=== PATIENT | female | born 1970 | race Caucasian/White ===

== ENCOUNTER → 2017-03-31 | Outpatient (CLI) | payer OTHER ==
[2017-03-31 13:00] LABS: Basophils % (A) 0 %; CH 30.2; Eosinophils # (A) 0.2 k/uL (0-0.7); Eosinophils % (A) 4 %; HDW 2.86; HGB 14.1 gm/dL (11.4-16.0); Luc # (Auto) 0.13; Luc % (Auto) 2; Lymphocytes # (A) 1.3 k/uL (1.0-4.8); Lymphocytes % (A) 20 %; MCHC 33.6 g/dL (31.0-37.0); MCV 89.2 fL (80.0-100.0); Monocytes # (A) 0.5 k/uL (0-1.0); Monocytes % (A) 7 %; Neutrophils # (A) 4.2 k/uL (1.3-7.7); Neutrophils % (A) 67 %; RBC 4.71 m/uL (3.80-5.40); RDW 12.9 % (11.5-15.5); WBC 6.3 k/uL (3.8-10.6)
== END ==
LOC: LABWHC1 12:04
PROVIDERS: ATTEND Obstetrics & Gynecology
DX: Z01.812 Encounter for preprocedural laboratory examination (principal)
CPT/HCPCS: 36415; 85025

== ENCOUNTER → 2017-04-20 | Outpatient (CLI) | payer OTHER ==
--- NOTE | 2017-04-20 09:33 | MR ---
EXAMINATION TYPE: MR lumbar spine wo con DATE OF EXAM: 04/20/2017 COMPARISON: MRI lumbar spine April 10, 2015. HISTORY: lumbago per order. Low back pain for several years into bilateral buttocks per patient. TECHNIQUE: Multiplanar, multisequence imaging of the lumbar spine is performed without IV contrast. FINDINGS: Sagittal images of the lumbar spine show vertebral body heights and alignment to appear sat isfactory. The intervertebral discs demonstrate normal heights and hydration. No significant posterio r disc herniations are seen on sagittal images. The conus medullaris remains normal in position and signal ending at mid L1 level. The bone marrow signal intensity is within normal limits. No signific ant spurring is noted. Axial images show no focal disc disease, or facet degenerative change at any lumbar level. There is no spinal canal stenosis, neural foraminal narrowing, or evidence of nerve root compromise. IMPRESSION: Negative MRI of the lumbar spine. No significant change from prior study.
== END | disposition home or self-care (01) ==
LOC: RADMRIMAIN 08:18
PROVIDERS: ATTEND Nurse Practitioner Acute Care
DX: M54.5 Low back pain (principal)
CPT/HCPCS: 72148

== ENCOUNTER → 2017-05-01 | Outpatient (CLI) | payer OTHER ==
--- NOTE | 2017-05-04 08:20 | MM ---
Reason for exam: screening (asymptomatic). Last mammogram was performed 1 year ago. History: Patient is nulliparous. Physical Findings: A clinical breast exam by your physician is recommended on an annual basis and results should be correlated with mammographic findings. MG Screening Mammo w CAD Bilateral CC and MLO view(s) were taken. Prior study comparison: April 29, 2016, bilateral MG screening mammo w CAD. April 27, 2015, bilateral MG screening mammo w CAD. The breast tissue is heterogeneously dense. This may lower the sensitivity of mammography. Focal asymmetry in the right MLO view, 3.8cm from nipple. This finding is changed when compared with previous exams. ASSESSMENT: Incomplete: need additional imaging evaluation, BI-RAD 0 RECOMMENDATION: Special view mammogram of the right breast. If lesion persists on supplemental views, image directed ultrasound is recommended. [facility] will attempt to contact patient to return for supplemental views and ultrasound if indicated.
== END | disposition home or self-care (01) ==
LOC: RADMAMWWP 09:06
PROVIDERS: ATTEND Internal Medicine
DX: Z12.31 Encounter for screening mammogram for malignant neoplasm of breast (principal)

== ENCOUNTER → 2017-05-05 | Outpatient (CLI) | payer OTHER ==
--- NOTE | 2017-05-06 07:31 | MM ---
Reason for exam: additional evaluation requested from abnormal screening. Last mammogram was performed less than 1 month ago. History: Patient is nulliparous. Physical Findings: Nurse did not find any significant physical abnormalities on exam. MG Work Up Mamm w CAD RT CC, MLO, ML, spot compression CC, and spot compression MLO view(s) were taken of the right breast. Prior study comparison: May 01, 2017, bilateral MG screening mammo w CAD. April 29, 2016, bilateral MG screening mammo w CAD. April 27, 2015, bilateral MG screening mammo w CAD. November 11, 2011, bilateral digital screening mammo w/CAD. The breast tissue is heterogeneously dense. This may lower the sensitivity of mammography. No clear persisting abnormality on spot images. Precautionary 6 month follow up recommended. These results were verbally communicated with the patient and result sheet given to the patient on 05/05/17. ASSESSMENT: Probably benign, BI-RAD 3 RECOMMENDATION: Follow-up diagnostic mammogram of the right breast in 6 months.
== END | disposition home or self-care (01) ==
LOC: RADMAMWWP 14:29
PROVIDERS: ATTEND Internal Medicine
DX: R92.8 Other abnormal and inconclusive findings on diagnostic imaging of breast (principal)

== ENCOUNTER → 2017-05-26 | Outpatient (CLI) | payer OTHER ==
[2017-05-26 09:57] LABS: Basophils % (A) 0 %; CH 29.4; CHCM 33.9; Eosinophils # (A) 0.2 k/uL (0-0.7); Eosinophils % (A) 4 %; HCT 45.1 % (34.0-46.0); HDW 2.92; HGB 14.8 gm/dL (11.4-16.0); Luc # (Auto) 0.13; Luc % (Auto) 2; Lymphocytes # (A) 1.5 k/uL (1.0-4.8); Lymphocytes % (A) 24 %; MCH 28.6 pg (25.0-35.0); MCHC 32.8 g/dL (31.0-37.0); MCV 87.2 fL (80.0-100.0); Mean Platelet Volume 6.8; Monocytes # (A) 0.4 k/uL (0-1.0); Monocytes % (A) 7 %; Neutrophils # (A) 3.8 k/uL (1.3-7.7); Neutrophils % (A) 62 %; RBC 5.17 m/uL (3.80-5.40); RDW 12.8 % (11.5-15.5); WBC 6.1 k/uL (3.8-10.6); WBC (Perox) 6.09
== END | disposition home or self-care (01) ==
LOC: LABPAT 09:24
PROVIDERS: ATTEND Obstetrics & Gynecology
DX: Z01.812 Encounter for preprocedural laboratory examination (principal)
CPT/HCPCS: 36415; 85025

== ENCOUNTER → 2017-07-16 | Outpatient (CLI) | payer OTHER ==
[2017-07-16 10:54] LABS: Basophils % (A) 0 %; CH 29.1; CHCM 34.5; Eosinophils # (A) 0.2 k/uL (0-0.7); Eosinophils % (A) 4 %; HCT 42.3 % (34.0-46.0); HDW 2.96; HGB 14.7 gm/dL (11.4-16.0); Luc # (Auto) 0.15; Luc % (Auto) 2; Lymphocytes % (A) 15 %; MCH 29.5 pg (25.0-35.0); MCHC 34.8 g/dL (31.0-37.0); MCV 84.8 fL (80.0-100.0); Monocytes # (A) 0.4 k/uL (0-1.0); Monocytes % (A) 7 %; Neutrophils # (A) 4.9 k/uL (1.3-7.7); Neutrophils % (A) 73 %; RBC 4.99 m/uL (3.80-5.40); RDW 13.1 % (11.5-15.5); WBC 6.8 k/uL (3.8-10.6); WBC (Perox) 6.71
[2017-07-17 13:27] VITALS: BMI 33.0
== END | disposition home or self-care (01) ==
LOC: LABPAT 10:11
PROVIDERS: ATTEND Obstetrics & Gynecology
DX: Z01.812 Encounter for preprocedural laboratory examination (principal)
CPT/HCPCS: 85025

== ENCOUNTER 2017-07-20 06:38 | Day surgery (SDC) | payer OTHER ==
[2017-04-14 14:42] VITALS: BMI 32.0
[~2017-07-20 06:38] MED LIST: LACTATED RINGERS 1,000 ML IV SCH; Pre Op ABX Message 1 EACH MISC MISCELLANE ONE; fentaNYL (PF) 50 MCG/ML 2 ML AMP IV PRN
[2017-07-20] MEDS ORDERED: LIDOCAINE 1% 20 ML VIAL (10MG/ML) FOR IV START INTRADERMA ONE (07:36)
[2017-07-20] MEDS ORDERED: ONDANSETRON 4 MG/2 ML VIAL IVP ONE (07:37)
[2017-07-20] MEDS ORDERED: DEXAMETHASONE SOD PHOSPHATE 10 MG/ML 1 ML VIAL IV ONE (07:37)
[2017-07-20] MEDS ORDERED: SCOPOLAMINE 1.5MG/72HR PATCH TRANSDERM ONE (07:39)
[2017-07-20] MEDS ORDERED: KETOROLAC 30 MG/ML 1 ML VIAL ONE (07:48)
[2017-07-20] MEDS ORDERED: PROPOFOL 10 MG/ML 20 ML VIAL IV ONE (07:48)
[2017-07-20] MEDS ORDERED: fentaNYL (PF) 50 MCG/ML 2 ML AMP ONE (07:48)
--- NOTE | 2017-07-20 07:48 | P.HPOB ---
History of Present Illness H&P Date: 07/20/17 Chief Complaint: Cervical dysplasia Aleshia is a 47-year-old female scheduled for a colposcopy under anesthesia due to her inability to tolerate a colposcopy in the office and limited visualization during that procedure. We are doing a colposcopy with likely biopsies of her cervix due to same. Risks/benefits/alternatives were discussed patient in detail and all questions are answered for her prior to proceeding to the operating room. This procedure has been scheduled since March. She has rescheduled this multiple times. On physical exam vital signs are stable and afebrile. Heart regular, lungs clear, extremities without pain. Abdomen soft and nontender. Positive bowel sounds are noted. Pelvic exam will be done completely in the operating room. Assessment cervical dysplasia. Plan colposcopy with possible biopsies. Past Medical History Past Medical History: COPD, GERD/Reflux, Osteoarthritis (OA), Sleep Apnea/CPAP/ BIPAP Additional Past Medical History / Comment(s): Back pain. Heel Spurs. USES CPAP. INJ RT ARM/SHOULDER, GOING TO PT. History of Any Multi-Drug Resistant Organisms: None Reported Additional Past Surgical History / Comment(s): Pain Injection Procedures; Colonoscopy Past Anesthesia/Blood Transfusion Reactions: No Reported Reaction Smoking Status: Never smoker - Past Family History Mother Family Medical History: No Reported History Father Family Medical History: Pulmonary Embolus Medications and Allergies Home Medications Medication Instructions Recorded Confirmed Type Ibuprofen [Motrin] 800 mg PO Q6HR PRN 04/14/17 07/17/17 History Omeprazole 20 mg PO HS 04/14/17 07/17/17 History Albuterol Inhaler [Ventolin Hfa 1 - 2 puff INHALATION Q6HR PRN 07/17/17 History Inhaler] Ketorolac [Toradol] 10 mg PO Q6HR 07/17/17 07/20/17 History Allergies Allergy/AdvReac Type Severity Reaction Status Date / Time No Known Allergies Allergy Verified 07/20/17 07:20 Exam Osteopathic Statement: *. No significant issues noted on an osteopathic structural exam other than those noted in the History and Physical/Consult. - Vital Signs Vital signs: Vital Signs Temp Pulse Resp BP Pulse Ox 07/20/17 07:23 98.2 F 80 16 112/60 93 L Intake and Output 07/19/17 07/20/17 07/20/17 22:59 06:59 14:59 Intake Total 50 Balance 50 Intake: IV 50
--- NOTE | 2017-07-20 08:33 | P.OP ---
Date of Procedure: 07/20/17 Preoperative Diagnosis: Cervical dysplasia Postoperative Diagnosis: Same Procedure(s) Performed: Colposcopy with ECC Implants: Anesthesia: TOM Surgeon: Nakul Umanzor Pathology: other (ECC) Condition: stable Disposition: same day Indications for Procedure: Operative Findings: Await biopsy Description of Procedure: A she was taken to the operating suite where a general anesthetic was found be adequate. She was prepped and draped in normal sterile fashion placed in dorsal lithotomy position. Initially exam was done no gross findings are noted. Speculum was then inserted into the vagina into lip cervix was grasped with an Allis clamp and Lugol solution coated the external cervix. Colposcopy was then done no gross findings therefore colposcope was removed and endocervical curettings were obtained with a Maribeth curet. Tissue was placed on Telfa sent to pathology for evaluation. All instruments were then removed sponge, lap, needle counts were all correct 2 and patient was taken to the recovery room in stable and satisfactory condition. Plan - Discharge Summary New Discharge Prescriptions: No Action Ibuprofen [Motrin] 800 mg PO Q6HR PRN PRN Reason: Pain Omeprazole 20 mg PO HS Albuterol Inhaler [Ventolin Hfa Inhaler] 1 - 2 puff INHALATION Q6HR PRN PRN Reason: Shortness Of Breath Ketorolac [Toradol] 10 mg PO Q6HR Discharge Medication List Ibuprofen [Motrin] 800 mg PO Q6HR PRN 04/14/17 [History] Omeprazole 20 mg PO HS 04/14/17 [History] Albuterol Inhaler [Ventolin Hfa Inhaler] 1 - 2 puff INHALATION Q6HR PRN [History] Ketorolac [Toradol] 10 mg PO Q6HR 07/17/17 [History] Follow up Appointment(s)/Referral(s): Nakul Umanzor DO [Doctor of Osteopathic Medicine] - 1 Week Patient Instructions/Handouts: *[facility] - Scopalamine Patch Instructions
[2017-07-20 08:40] VITALS: TEMP 98.6
[2017-07-20 10:11] VITALS: RESP 16
[2017-07-20 10:20] VITALS: BP 110/72; PULSE 80
== END 2017-07-20 10:40 | disposition home or self-care (01) ==
LOC: OR 06:38
PROVIDERS: ATTEND Obstetrics & Gynecology
DX: R87.612 Low grade squamous intraepithelial lesion on cytologic smear of cervix (LGSIL) (principal); J44.9 Chronic obstructive pulmonary disease, unspecified; G47.33 Obstructive sleep apnea (adult) (pediatric); K21.9 Gastro-esophageal reflux disease without esophagitis; Z77.22 Contact with and (suspected) exposure to environmental tobacco smoke (acute) (chronic); Z79.1 Long term (current) use of non-steroidal anti-inflammatories (NSAID); Z79.899 Other long term (current) drug therapy; Z99.89 Dependence on other enabling machines and devices
CPT/HCPCS: 81025; 88305; 57454; J1100; J2405; J3010; J1885; J2704

== ENCOUNTER → 2017-11-30 | Outpatient (CLI) | payer OTHER ==
--- NOTE | 2017-11-30 11:56 | MM ---
Reason for exam: follow-up at short interval from prior study. Last mammogram was performed 7 months ago. History: Patient is nulliparous. Physical Findings: Nurse did not find any significant physical abnormalities on exam. MG Diagnostic Mammo RT w CAD CC and MLO view(s) were taken of the right breast. Prior study comparison: May 05, 2017, right breast MG work up mamm w CAD RT. May 01, 2017, bilateral MG screening mammo w CAD. Persistent nodular density right 12 o'clock 5cm from nipple. These results were verbally communicated with the patient and result sheet given to the patient on 11/30/17. ASSESSMENT: Incomplete: need additional imaging evaluation, BI-RAD 0 RECOMMENDATION: Ultrasound of the right breast.
--- NOTE | 2017-11-30 11:57 | USB ---
Reason for exam: additional evaluation requested from abnormal screening. History: Patient is nulliparous. US Breast Limited RT Right breast ultrasound demonstrates a 0.6 x 0.3 x 0.5cm oval, cystic lesion at 12 o'clock. These results were verbally communicated with the patient and result sheet given to the patient on 11/30/17. ASSESSMENT: Benign, BI-RAD 2 RECOMMENDATION: Return to routine screening mammogram schedule for both breasts. Back on schedule.
== END | disposition home or self-care (01) ==
LOC: RADMAMWWP 10:11
PROVIDERS: ATTEND Internal Medicine
DX: Z12.31 Encounter for screening mammogram for malignant neoplasm of breast (principal); R92.8 Other abnormal and inconclusive findings on diagnostic imaging of breast
CPT/HCPCS: 77065

== ENCOUNTER → 2017-11-30 | Outpatient (CLI) | payer OTHER ==
--- NOTE | 2017-12-01 11:39 | ECHOF ---
Referral Reason:I50.22 Congestive Heart Failure MEASUREMENTS -------- HEIGHT: 152.4 cm WEIGHT: 83.9 kg BP: RVIDd: 3.0 cm (< 3.3) IVSd: 1.0 cm (0.6 - 1.1) LVIDd: 3.7 cm (3.9 - 5.3) LVPWd: 0.7 cm (0.6 - 1.1) IVSs: 1.3 cm LVIDs: 2.6 cm LVPWs: 1.0 cm LA Diam: 2.9 cm (2.7 - 3.8) Ao Diam: 2.4 cm (2.0 - 3.7) AV Cusp: 1.8 cm (1.5 - 2.6) LA Diam: 3.1 cm (2.7 - 3.8) MV EXCURSION: 18.547 mm (> 18.000) MV EF SLOPE: 76 mm/s (70 - 150) EPSS: 0.4 cm MV E Inocente: 0.76 m/s MV DecT: 163 ms MV A Inocente: 0.58 m/s MV E/A Ratio: 1.31 RAP: 5.00 mmHg RVSP: 26.57 mmHg FINDINGS -------- Sinus rhythm. This was a technically adequate study. The left ventricular size is normal. There is mild concentric left ventricular hypertrophy. Overa ll left ventricular systolic function is normal with, an EF between 55 - 60 %. The right ventricle is normal in size. The right atrial size is normal. The aortic valve is trileaflet, and appears structurally normal. No aortic stenosis or regurgitation. Mild mitral regurgitation is present. Mild tricuspid regurgitation present. There is no evidence of pulmonary hypertension. The right v entricular systolic pressure, as measured by Doppler, is 26.57mmHg. There is no pulmonic regurgitation present. The aortic root size is normal. There is no pericardial effusion. CONCLUSIONS -------- 1. The left ventricular size is normal. 2. There is mild concentric left ventricular hypertrophy. 3. Overall left ventricular systolic function is normal with, an EF between 55 - 60 %. 4. The aortic valve is trileaflet, and appears structurally normal. No aortic stenosis or regurgitati on. 5. Mild mitral regurgitation is present. 6. Mild tricuspid regurgitation present. 7. There is no evidence of pulmonary hypertension. 8. The right ventricular systolic pressure, as measured by Doppler, is 26.57mmHg. 9. There is no pulmonic regurgitation present. 10. The aortic root size is normal. 11. There is no pericardial effusion. DIETETICS DIRECTOR: Rupal Miguel RDCS
== END | disposition home or self-care (01) ==
LOC: RADECHMAIN 11:28
PROVIDERS: ATTEND Internal Medicine Critical Care Medicine
DX: I08.3 Combined rheumatic disorders of mitral, aortic and tricuspid valves (principal)
CPT/HCPCS: 77065; 93306

== ENCOUNTER → 2017-12-21 | Outpatient (CLI) | payer OTHER ==
--- NOTE | 2017-12-22 06:55 | US ---
EXAMINATION TYPE: US pelvic complete DATE OF EXAM: 12/21/2017 COMPARISON: NONE CLINICAL HISTORY: Dysfunctional uterine bleeding N93.8. DUB, frequent menses sometimes lasting up to 4 weeks TECHNIQUE: Transabdominal (TA) Date of LMP: 12/11/17 EXAM MEASUREMENTS: Uterus: 8.7 x 3.1 x 4.8 cm Endometrial Stripe: 0.4 cm Right Ovary: 3.5 x 1.1 x 2.2 cm Left Ovary: 2.7 x 1.4 x 2.1 cm *Patient declining TV exam at this time 1. Uterus: Anteverted Heterogeneous in appearance, unable to rule out fibroid at fundus. Possible cystic area NATHALIE = 2.4 x 2.1 x 1.8cm 2. Endometrium: appears wnl 3. Right Ovary: appears wnl 4. Left Ovary: appears wnl 5. Bilateral Adnexa: wnl 6. Posterior cul-de-sac: wnl Exam is suboptimal as patient refused transvaginal evaluation. Endometrium is not suspiciously thicke mario. Heterogeneous anteverted uterus is present. Scattered small fibroids cannot be excluded particul carlos lower uterine segment being most suspicious IMPRESSION: Probable intrauterine fibroids, pelvic MRI can be performed to confirm if desired.
== END | disposition home or self-care (01) ==
LOC: RADUSWWP 14:09
PROVIDERS: ATTEND Obstetrics & Gynecology
DX: N93.8 Other specified abnormal uterine and vaginal bleeding (principal)
CPT/HCPCS: 36415; 76856; 83001; 83002; 84146; 84443

== ENCOUNTER → 2018-01-05 | Outpatient (CLI) | payer OTHER ==
[2018-01-05 13:06] LABS: ALT 59 U/L (9-52); AST 27 U/L (14-36); Albumin 3.9 g/dL (3.5-5.0); Alkaline Phosphatase 91 U/L (38-126); Anion Gap 9 mmol/L; Blood Urea Nitrogen 23 mg/dL (7-17); Calcium 9.1 mg/dL (8.4-10.2); Carbon Dioxide 30 mmol/L (22-30); Chloride 107 mmol/L (98-107); Glucose 117 mg/dL (74-99); Sodium 146 mmol/L (137-145); Total Bilirubin 0.4 mg/dL (0.2-1.3); Total Protein 6.7 g/dL (6.3-8.2)
== END | disposition home or self-care (01) ==
LOC: LABWHC1 12:00
PROVIDERS: ATTEND Internal Medicine Critical Care Medicine
DX: R60.0 Localized edema (principal)
CPT/HCPCS: 36415; 80053

== ENCOUNTER → 2018-02-17 | Outpatient (CLI) | payer OTHER ==
--- NOTE | 2018-02-17 09:52 | US ---
EXAMINATION TYPE: US liver DATE OF EXAM: 02/17/2018 COMPARISON: NONE CLINICAL HISTORY: R94.5 Elevated Liver Test. Water Retention EXAM MEASUREMENTS: Liver Length: 13.9 cm Gallbladder Wall: 0.1 cm CBD: 0.2 cm Right Kidney: 11.3 x 5.3 x 5.1 cm Pancreas: Mostly Obscured by bowel gas Liver: wnl, Partially obscured by bowel gas visualized portions appear unremarkable. Gallbladder: wnl Evidence for sonographic Rodriguez's sign: No CBD: wnl Right Kidney: wnl IMPRESSION: 1. Visualized portions of the right upper quadrant are unremarkable.
== END | disposition home or self-care (01) ==
LOC: RADUSWWP 07:41
PROVIDERS: ATTEND Internal Medicine
DX: R94.5 Abnormal results of liver function studies (principal)
CPT/HCPCS: 76705

== ENCOUNTER → 2018-08-19 | Outpatient (CLI) | payer OTHER ==
--- NOTE | 2018-08-19 12:15 | MM ---
Reason for exam: screening (asymptomatic). Last mammogram was performed 9 months ago. History: Patient is nulliparous. Physical Findings: A clinical breast exam by your physician is recommended on an annual basis and results should be correlated with mammographic findings. MG Screening Mammo w CAD Bilateral CC and MLO view(s) were taken. Prior study comparison: November 30, 2017, right breast MG diagnostic mammo RT w CAD. May 05, 2017, right breast MG work up mamm w CAD RT. April 27, 2015, bilateral MG screening mammo w CAD. The breast tissue is heterogeneously dense. This may lower the sensitivity of mammography. There is no discrete abnormality. ASSESSMENT: Negative, BI-RAD 1 RECOMMENDATION: Routine screening mammogram of both breasts in 1 year.
== END ==
LOC: RADMAMWWP 09:56
PROVIDERS: ATTEND Internal Medicine
DX: Z12.31 Encounter for screening mammogram for malignant neoplasm of breast (principal)
CPT/HCPCS: 77067

== ENCOUNTER → 2018-09-08 | Outpatient (CLI) | payer OTHER ==
[2018-09-08 10:43] LABS: HCT 42.9 % (34.0-46.0); MCH 28.9 pg (25.0-35.0); MCHC 32.6 g/dL (31.0-37.0); MCV 88.7 fL (80.0-100.0); Mean Platelet Volume 6.7; Platelet Count 225 k/uL (150-450); RBC 4.84 m/uL (3.80-5.40); RDW 13.7 % (11.5-15.5)
[2018-09-08 10:55] LABS: T4, Free (Free Thyroxine) 1.11 ng/dL (0.78-2.19)
--- NOTE | 2018-09-08 10:56 | US ---
EXAMINATION TYPE: US pelvis complete transvag DATE OF EXAM: 09/08/2018 COMPARISON: US CLINICAL HISTORY: Dys Uterine Bleeding N93.8. Patient stated may have 2 menstrual cycles per month; G 1P0 TECHNIQUE: Transvaginal (TV) and Transabdominal (TA) . Transabdominal sonographic images of the pel vis were acquired. Transvaginal sonographic images were medically necessary to better assess the fol lowing anatomy: endometrium and ovaries Date of LMP: 08/28/2018 EXAM MEASUREMENTS: Uterus: 7.9 x 4.8 x 3.0 cm Endometrial Stripe: right upper endometrium = 0.3 cm and left upper endometrium = 0.8cm in bicornuate appearing uterus Right Ovary: 1.3 x 1.6 x 1.5 cm Left Ovary: 2.3 x 1.5 x 1.9 cm 1. Uterus: Anteverted; multiple Nabothian Cysts in cervix with largest = 1.1 x 0.6 x 0.8cm; 2. Endometrium: bicornuate appearance to upper endometrium 3. Right Ovary: small follicle is seen 4. Left Ovary: small follicle seen = 0.8 x 1..0 x 0.8cm 5. Bilateral Adnexa: wnl 6. Posterior cul-de-sac: wnl IMPRESSION: 1. 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 2. Cervical nabothian cysts. 3. Small ovarian follicles.
[2018-09-08 16:56] LABS: Progesterone 0.2 ng/mL
== END | disposition home or self-care (01) ==
LOC: RADUSWWP 08:55
PROVIDERS: ATTEND Obstetrics & Gynecology
DX: N88.8 Other specified noninflammatory disorders of cervix uteri (principal); N93.8 Other specified abnormal uterine and vaginal bleeding
CPT/HCPCS: 76830; 76856; 80061; 82670; 82947; 83001; 83002; 84144; 84146; 84403; 84439; 84443; 84479; 85027

== ENCOUNTER 2018-10-04 05:36 | Day surgery (SDC) | payer OTHER ==
[2018-09-24 15:25] VITALS: BMI 37.0
--- NOTE | 2018-09-28 19:33 | P.HPOB ---
History of Present Illness H&P Date: 09/28/18 Chief Complaint: Abnormal Pap smear and dysfunctional bleeding Aleshia is a 48-year-old female with a an abnormal Pap smear requiring a colposcopy. She does not tolerate these well under office circumstances she is therefore scheduled for this in the operating room. She also unforeseen has been suffering from dysfunctional uterine bleeding that has included 2 menses in November including a 25 day cycle then another that last 5 days she's had this intermittently over the last year and we are doing a D&C with hysteroscopy to rule out other pathology. Risks/benefits/alternatives to this procedure were discussed with the patient in detail and all questions were answered for her prior to proceeding to the operating room. Past Medical History Past Medical History: COPD, GERD/Reflux, Osteoarthritis (OA), Sleep Apnea/CPAP/ BIPAP Additional Past Medical History / Comment(s): Back pain. Heel Spurs. USES CPAP. Bunions History of Any Multi-Drug Resistant Organisms: None Reported Additional Past Surgical History / Comment(s): Pain Injection Procedures; Colonoscopy Past Anesthesia/Blood Transfusion Reactions: No Reported Reaction Smoking Status: Never smoker - Past Family History Mother Family Medical History: No Reported History Father Family Medical History: Pulmonary Embolus Medications and Allergies Home Medications Medication Instructions Recorded Confirmed Type Ibuprofen [Motrin] 800 mg PO Q6HR PRN 04/14/17 09/24/18 History Omeprazole 20 mg PO AC-BID 04/14/17 09/24/18 History Albuterol Inhaler [Ventolin Hfa 1 - 2 puff INHALATION Q6HR PRN 07/17/17 History Inhaler] Cholecalciferol [Vitamin D3] 2,000 unit PO DAILY 09/24/18 09/24/18 History Fluorometholone 0.1% Ophth Lakshmi 1 drops LEFT EYE Q4H PRN 09/24/18 09/24/18 History [Fml] Furosemide [Lasix] 40 mg PO DAILY 09/24/18 09/24/18 History Ketotifen 0.025% Ophth Soln 1 drop BOTH EYES BID PRN 09/24/18 09/24/18 History [Zaditor] Pregabalin [Lyrica] 75 mg PO BID 09/24/18 09/24/18 History busPIRone HCL 15 mg PO DAILY 09/24/18 09/24/18 History Allergies Allergy/AdvReac Type Severity Reaction Status Date / Time No Known Allergies Allergy Verified 09/24/18 15:17 Exam Osteopathic Statement: *. No significant issues noted on an osteopathic structural exam other than those noted in the History and Physical/Consult. - OBG Physical Exam Breast: both: normal (no masses) Abdomen: bowel sounds normal, no diffuse tenderness, no bruit present, no guarding noted, no hepatomegaly, no splenomegaly, no mass Vulva: both: normal Vagina: normal moisture, no discharge Cervix: no lesion, no discharge Uterus: normal size, normal contour Adnexa: both: normal Anus/Rectum: normal perianal skin, no rectal mass, no hemorrhoids, heme negative
[~2018-10-04 05:36] MED LIST changes: -LACTATED RINGERS 1,000 ML IV SCH; -fentaNYL (PF) 50 MCG/ML 2 ML AMP IV PRN
[2018-10-04] MEDS ORDERED: SCOPOLAMINE 1.5MG/72HR PATCH TRANSDERM ONE (05:54)
[2018-10-04] MEDS ORDERED: HYDROmorphone 0.5 MG/0.5 ML SYRINGE IVP PRN (05:54)
[2018-10-04] MEDS ORDERED: DEXAMETHASONE SOD PHOSPHATE 10 MG/ML 1 ML VIAL IV ONE (05:54)
[2018-10-04] MEDS ORDERED: LACTATED RINGERS 1,000 ML IV SCH (05:54)
[2018-10-04] MEDS ORDERED: ONDANSETRON 4 MG/2 ML VIAL IVP ONE (05:54)
[2018-10-04] MEDS ORDERED: LIDOCAINE 1% 20 ML VIAL (10MG/ML) FOR IV START INTRADERMA PRN (05:54)
[2018-10-04] MEDS ORDERED: KETOROLAC 30 MG/ML 1 ML VIAL ONE (07:42)
[2018-10-04] MEDS ORDERED: DEXAMETHASONE SOD PHOS (MDV) 100 MG/10 ML VIAL ONE (07:42)
[2018-10-04] MEDS ORDERED: MIDAZOLAM 2 MG/2 ML VIAL ONE (07:42)
[2018-10-04] MEDS ORDERED: PROPOFOL 10 MG/ML 20 ML VIAL IV ONE (07:42)
[2018-10-04] MEDS ORDERED: SUCCINYLCHOLINE CHLORIDE VIAL 200 MG/10 ML VIAL IV ONE (07:42)
[2018-10-04] MEDS ORDERED: ALBUTEROL INHALER 60 PUFF/8 GM INHALER INHALATION ONE (07:42)
[2018-10-04] MEDS ORDERED: IODINE/POTASS IOD (LUGOLS) BTL TOPICAL ONE (08:07)
--- NOTE | 2018-10-04 08:33 | P.HPOB ---
History of Present Illness H&P Date: 10/04/18 Chief Complaint: Dysfunctional bleeding and cervical dysplasia Patient was taken to the operating suite where a general anesthetic was found be adequate. She was prepped and draped in the normal sterile fashion and placed in the dorsal lithotomy position. Initially a speculum was inserted into the vagina and the anterior lip of the cervix was identified and grasped with an Allis clamp. Cervix is noted to be very posterior with no descent. Lugol solution was then coated on the cervix and colposcopy was done. No out side pathology was noted therefore cervix was minimally dilated and using a Kevorkian curette endocervical curettings were obtained. Once this was accomplished cervix was dilated was unable to advance the camera therefore a curettage was obtained and tissue was again clots on Telfa and sent to pathology once this was accomplished all instruments removed, sponge, lap, needle counts were all correct 2. Patient was then taken to the recovery room in stable and satisfactory condition. Past Medical History Past Medical History: COPD, GERD/Reflux, Osteoarthritis (OA), Sleep Apnea/CPAP/ BIPAP Additional Past Medical History / Comment(s): Back pain. Heel Spurs. USES CPAP. Bunions History of Any Multi-Drug Resistant Organisms: None Reported Additional Past Surgical History / Comment(s): Pain Injection Procedures; Colonoscopy Past Anesthesia/Blood Transfusion Reactions: No Reported Reaction Smoking Status: Never smoker - Past Family History Mother Family Medical History: No Reported History Father Family Medical History: Pulmonary Embolus Medications and Allergies Home Medications Medication Instructions Recorded Confirmed Type Ibuprofen [Motrin] 800 mg PO Q6HR PRN 04/14/17 10/04/18 History Omeprazole 20 mg PO AC-BID 04/14/17 10/04/18 History Albuterol Inhaler [Ventolin Hfa 1 - 2 puff INHALATION Q6HR PRN 07/17/17 History Inhaler] Cholecalciferol [Vitamin D3] 2,000 unit PO DAILY 09/24/18 10/04/18 History Fluorometholone 0.1% Ophth Lakshmi 1 drops LEFT EYE Q4H PRN 09/24/18 10/04/18 History [Fml] Furosemide [Lasix] 40 mg PO DAILY 09/24/18 10/04/18 History Ketotifen 0.025% Ophth Soln 1 drop BOTH EYES BID PRN 09/24/18 10/04/18 History [Zaditor] Pregabalin [Lyrica] 75 mg PO BID 09/24/18 10/04/18 History busPIRone HCL 15 mg PO DAILY 09/24/18 10/04/18 History Ibuprofen [Motrin] 600 mg PO Q6HR PRN #30 tab 10/04/18 Rx Allergies Allergy/AdvReac Type Severity Reaction Status Date / Time No Known Allergies Allergy Verified 10/04/18 06:13 Exam Osteopathic Statement: *. No significant issues noted on an osteopathic structural exam other than those noted in the History and Physical/Consult. Vital Signs Temp Pulse Resp BP Pulse Ox 10/04/18 06:19 97.4 F L 87 16 129/73 95 Intake and Output 10/03/18 10/04/18 10/04/18 22:59 06:59 14:59 Intake Total 200 0 Output Total 5 Balance 200 -5 Intake: IV 200 0 Output: Estimated Blood Loss 5
[2018-10-04] MEDS ORDERED: SODIUM CHLORIDE 0.9% 1,000 ML IV ONE (08:45)
[2018-10-04 08:49] VITALS: TEMP 98.5
[2018-10-04 09:47] VITALS: RESP 18
[2018-10-04 10:25] VITALS: BP 127/70; PULSE 96
--- NOTE | 2018-10-08 08:54 | P.OP ---
Date of Procedure: 10/04/18 Preoperative Diagnosis: Cervical dysplasia and dysfunctional uterine bleeding Postoperative Diagnosis: Same Procedure(s) Performed: Colposcopy with D&C and hysteroscopy Anesthesia: TOM Surgeon: Nakul Umanzor Estimated Blood Loss (ml): 5 Pathology: none sent (Endocervical and uterine curettings) Condition: stable Disposition: same day Operative Findings: Tissue pathology pending Description of Procedure: Patient was taken to the operating suite where a general anesthetic was found be adequate. She was prepped and draped in the normal sterile fashion and placed in dorsal lithotomy position. Initially a speculum was inserted into the vagina and the anterior lip of the cervix was identified and grasped with a single-tooth tenaculum. Cervix was then minimally dilated and coated with Lugol solution. With no changes noted on the external cervix endocervical curettings were obtained with Kevorkian curette. Once this was accomplished camera was inserted no gross pathology was noted therefore sharp curettings of endometrium were obtained and tissue was placed on Telfa and sent to pathology for evaluation. All instruments were then removed sponge, lap, needle counts were all correct 2. Patient was then taken to the recovery room in stable and satisfactory condition. Plan - Discharge Summary New Discharge Prescriptions: New Ibuprofen [Motrin] 600 mg PO Q6HR PRN #30 tab PRN Reason: Pain No Action Ibuprofen [Motrin] 800 mg PO Q6HR PRN PRN Reason: Pain Omeprazole 20 mg PO AC-BID Albuterol Inhaler [Ventolin Hfa Inhaler] 1 - 2 puff INHALATION Q6HR PRN PRN Reason: Shortness Of Breath Ketotifen 0.025% Ophth Soln [Zaditor] 1 drop BOTH EYES BID PRN PRN Reason: Dry Eye(S) Fluorometholone 0.1% Ophth Lakshmi [Fml] 1 drops LEFT EYE Q4H PRN PRN Reason: Dry Eye(S) busPIRone HCL 15 mg PO DAILY Pregabalin [Lyrica] 75 mg PO BID Furosemide [Lasix] 40 mg PO DAILY Cholecalciferol [Vitamin D3] 2,000 unit PO DAILY Discharge Medication List Ibuprofen [Motrin] 800 mg PO Q6HR PRN 04/14/17 [History] Omeprazole 20 mg PO AC-BID 04/14/17 [History] Albuterol Inhaler [Ventolin Hfa Inhaler] 1 - 2 puff INHALATION Q6HR PRN [History] Cholecalciferol [Vitamin D3] 2,000 unit PO DAILY 09/24/18 [History] Fluorometholone 0.1% Ophth Lakshmi [Fml] 1 drops LEFT EYE Q4H PRN 09/24/18 [History] Furosemide [Lasix] 40 mg PO DAILY 09/24/18 [History] Ketotifen 0.025% Ophth Soln [Zaditor] 1 drop BOTH EYES BID PRN 09/24/18 [History ] Pregabalin [Lyrica] 75 mg PO BID 09/24/18 [History] busPIRone HCL 15 mg PO DAILY 09/24/18 [History] Ibuprofen [Motrin] 600 mg PO Q6HR PRN #30 tab 10/04/18 [Rx] Follow up Appointment(s)/Referral(s): Nakul Umanzor DO [Doctor of Osteopathic Medicine] - 1 Week Patient Instructions/Handouts: *[facility] - Dilation & Curettage Home Instructions, *[facility] - (Anesthesia) Discharge Instructions Outpatient Surgery, *[facility] - Scopalamine Patch Instructions Activity/Diet/Wound Care/Special Instructions: No heavy lifting, limit stairs and driving, and pelvic rest. If any high temperatures, heavy bleeding, or severe pain call my office Discharge Disposition: HOME SELF-CARE
== END 2018-10-04 11:08 | disposition home or self-care (01) ==
LOC: OR 05:36
PROVIDERS: ATTEND Obstetrics & Gynecology
DX: N87.9 Dysplasia of cervix uteri, unspecified (principal); N93.8 Other specified abnormal uterine and vaginal bleeding; J44.9 Chronic obstructive pulmonary disease, unspecified; K21.9 Gastro-esophageal reflux disease without esophagitis; M19.90 Unspecified osteoarthritis, unspecified site; M77.30 Calcaneal spur, unspecified foot; M21.619 Bunion of unspecified foot; G47.33 Obstructive sleep apnea (adult) (pediatric); I87.2 Venous insufficiency (chronic) (peripheral); E66.01 Morbid (severe) obesity due to excess calories; Z68.37 Body mass index [BMI] 37.0-37.9, adult; Z99.89 Dependence on other enabling machines and devices; Z79.899 Other long term (current) drug therapy
CPT/HCPCS: 81025; 88305; 57454; 58558; J2250; J0330; J1100 ×2; J2405; J1885; J2704

== ENCOUNTER 2019-09-23 10:36 | Day surgery (SDC) | payer OTHER ==
[2019-09-22 09:00] VITALS: BMI 38.7
[~2019-09-23 10:36] MED LIST changes: +DEXAMETHASONE SOD PHOSPHATE 10 MG/ML 1 ML VIAL IV ONE; +HYDROmorphone 0.5 MG/0.5 ML SYRINGE IVP PRN; +LACTATED RINGERS 1,000 ML IV SCH; +LIDOCAINE 1% 20 ML VIAL (10MG/ML) FOR IV START INTRADERMA PRN; +MIDAZOLAM 2 MG/2 ML VIAL IV PRN; +ONDANSETRON 4 MG/2 ML VIAL IVP ONE; -Pre Op ABX Message 1 EACH MISC MISCELLANE ONE; +SCOPOLAMINE 1.5MG/72HR PATCH TRANSDERM ONE
[2019-09-23 11:44] VITALS: RESP 16; TEMP 97.6
[2019-09-23] MEDS ORDERED: MIDAZOLAM 2 MG/2 ML VIAL IV ONE (12:05)
[2019-09-23] MEDS ORDERED: GLYCOPYRROLATE 0.2 MG/ML 2 ML VIAL ONE (12:28)
[2019-09-23] MEDS ORDERED: fentaNYL (PF) 50 MCG/ML 2 ML AMP ONE (12:28)
[2019-09-23] MEDS ORDERED: KETAMINE 10 MG/ML 20 ML VIAL ONE (12:28)
--- NOTE | 2019-09-23 12:39 | P.ANPRN ---
Procedure Note - Anesthesia - Nerve Block Performed Right Axillary Single Time Out Performed: Yes (1205) Date of Procedure: 09/23/19 Procedure Start Time: 12:05 Procedure Stop Time: 12:12 Location of Patient Procedure: PreOp Indication: Acute Post-Operative Pain, Dx/Pain Location, Requested by Surgeon Sedation Type: Sedate with meaningful contact maintained Position: Supine Needle Types: Pajunk Needle Gauge: 21 Ultrasound used to visualize needle placement: Yes Ultrasound used to observe medication spread: Yes Injectate: Other (see comment) (10ml 0.5% Ropivacaine + 10ml 2% lidocaine with 1:200,000 epi) Pain Paresthesia on Injection Noted: Yes Resistance on Injection: Normal Image Stored and Saved: Yes Events: Uneventful and Well Tolerated
[2019-09-23] MEDS ORDERED: LIDOCAINE 1%-EPI 1:100,000 20 ML VIAL ONE (12:53)
[2019-09-23] MEDS ORDERED: LIDOCAINE 1%-EPI 1:100,000 30 ML VIAL SQ ONE (12:53)
[2019-09-23] MEDS ORDERED: BUPIVACAINE (PF) 0.5% 30 ML VIAL SQ ONE ×2 (12:53)
[2019-09-23 13:51] VITALS: PULSE 90
[2019-09-23 14:16] VITALS: BP 128/67
--- NOTE | 2019-09-24 15:35 | P.OP ---
Date of Procedure: 09/23/19 Preoperative Diagnosis: Right carpal tunnel syndrome Postoperative Diagnosis: Right carpal tunnel syndrome Procedure(s) Performed: Right endoscopic carpal tunnel release Anesthesia: MAC, regional, local Surgeon: Keith German Estimated Blood Loss (ml): 1 Condition: stable Disposition: same day Indications for Procedure: The patient is a pleasant 49-year-old female who was diagnosed with bilateral carpal tunnel syndrome. Treatment options (and associated risks and benefits) were discussed in the office. The patient elected to proceed with surgical release, beginning with the right side. In preop, the patient denied any additional questions or concerns. Consent forms were signed. The operative site was confirmed and marked. Description of Procedure: The patient was administered a regional nerve block by the anesthesia team and then was brought to the operating suite, positioned supine with the right arm on a hand table. A tourniquet was applied. Monitored anesthesia was administered uneventfully. A time-out was performed, confirming patient identifiers, the operative side, site and the procedure to be performed: all team members expressed agreement. Using aseptic technique, local anesthetic was injected into the subcutaneous tissues around the planned incision. The right upper extremity was then prepped and draped in standard, sterile fashion. The limb was exsanguinated with an Esmarch and the tourniquet was inflated. Loupe magnification was used throughout the case for optimum visualization. A 1.5 cm transverse incision was marked just proximal to the wrist flexion crease, in line with the radial border of the ring finger. The skin was sharply incised and the subcutaneous tissues were bluntly spread. The volar carpal fascia was identified and sharply incised. The median nerve was visualized below. Prominent, injected perineural vasculature was noted, consistent with chronic compression. The introitus to the carpal tunnel was remarkably tight. To facilitate atraumatic entry, the volar carpal fascia proximal and distal to the incision was released with scissors under direct visualization. Attempts to insert a smooth synovial elevator were met with resistance and traction against the nerve. A Maspeth elevator was used to gently release adhesions over the nerve. The synovial elevator was again inserted and passed smoothly into the carpal tunnel without traction or tension on the nerve. This was used to gently release adhesions on the underside of the transverse carpal ligament. The washboard effect was palpable. A dilator was inserted to sound and enlarge the carpal tunnel. The hamate hook was palpable ulnarly. The small side-specific guide and camera were inserted. The transverse carpal ligament was clearly visualized above. The distal edge of the ligament was identified and palpated with a probe. A rasp was used to clear the remaining synovial adhesions. The endoscopic blade was inserted and the distal half of the ligament was sharply incised. Residual distal transverse fibers were released and then the proximal portion of the ligament was divided. Wide release of ligament was visually confirmed. The camera was removed. At the level of the incision, the median nerve was encased in a layer of thickened perineural tissue, causing persistent compression. A limited, local neurolysis was performed, which improved both the appearance and mobility of the nerve. The tourniquet was released after 16 minutes at 250 mmHg. Good hemostasis was obtained with held pressure. The wound was thoroughly irrigated with normal saline. The incision was closed with interrupted 4-0 Nylon sutures. Additional local anesthetic with epinephrine was injected for adjunctive postoperative pain control and hemostasis. A soft, sterile dressing was applied. All sponge, needle and instrument counts were correct at the end of the case. The patient tolerated the procedure well and was transferred to recovery in stable condition.
== END 2019-09-23 16:51 | disposition home or self-care (01) ==
LOC: OR 10:36
PROVIDERS: ATTEND Orthopaedic Surgery
DX: G56.03 Carpal tunnel syndrome, bilateral upper limbs (principal); M19.042 Primary osteoarthritis, left hand; M19.041 Primary osteoarthritis, right hand; F41.9 Anxiety disorder, unspecified; K21.9 Gastro-esophageal reflux disease without esophagitis; F32.9 Major depressive disorder, single episode, unspecified; J44.9 Chronic obstructive pulmonary disease, unspecified; G47.33 Obstructive sleep apnea (adult) (pediatric); K08.409 Partial loss of teeth, unspecified cause, unspecified class; K08.89 Other specified disorders of teeth and supporting structures; Z79.899 Other long term (current) drug therapy; Z79.1 Long term (current) use of non-steroidal anti-inflammatories (NSAID); Z87.2 Personal history of diseases of the skin and subcutaneous tissue; Z98.49 Cataract extraction status, unspecified eye; Z97.3 Presence of spectacles and contact lenses; Z99.89 Dependence on other enabling machines and devices; Z98.890 Other specified postprocedural states; Z83.3 Family history of diabetes mellitus; Z82.49 Family history of ischemic heart disease and other diseases of the circulatory system; Z83.2 Family history of diseases of the blood and blood-forming organs and certain disorders involving the immune mechanism
CPT/HCPCS: 29848; 64417; 81025; 76942; J2250; J1100; J0690; J2405; J3010

== ENCOUNTER → 2019-11-11 | Outpatient (CLI) | payer OTHER ==
[2019-11-11 08:01] LABS: HCT 42.2 % (34.0-46.0); HGB 13.9 gm/dL (11.4-16.0); MCH 27.9 pg (25.0-35.0); MCV 84.4 fL (80.0-100.0); Mean Platelet Volume 7.5; Platelet Count 183 k/uL (150-450); RDW 13.7 % (11.5-15.5); WBC 6.7 k/uL (3.8-10.6)
[2019-11-11 08:08] LABS: Potassium 3.6 mmol/L (3.5-5.1)
== END | disposition home or self-care (01) ==
LOC: LABPAT 06:53
PROVIDERS: ATTEND Internal Medicine Interventional Cardiology
DX: Z01.812 Encounter for preprocedural laboratory examination (principal); R60.0 Localized edema
CPT/HCPCS: 36415; 80051; 82565; 84520; 85027

== ENCOUNTER → 2019-11-11 | Outpatient (CLI) | payer OTHER ==
--- NOTE | 2019-11-14 12:20 | MM ---
Reason for exam: screening (asymptomatic). Last mammogram was performed 1 year and 3 months ago. History: Patient is nulliparous. Physical Findings: A clinical breast exam by your physician is recommended on an annual basis and results should be correlated with mammographic findings. MG Screening Mammo w CAD Bilateral CC and MLO view(s) were taken. Prior study comparison: August 19, 2018, bilateral MG screening mammo w CAD. November 30, 2017, right breast MG diagnostic mammo RT w CAD. The breast tissue is heterogeneously dense. This may lower the sensitivity of mammography. No suspicious abnormality. No significant changes when compared with prior studies. ASSESSMENT: Negative, BI-RAD 1 RECOMMENDATION: Routine screening mammogram of both breasts in 1 year.
== END ==
LOC: RADMAMWWP 06:51
PROVIDERS: ATTEND Internal Medicine
DX: Z12.31 Encounter for screening mammogram for malignant neoplasm of breast (principal)
CPT/HCPCS: 77067

== ENCOUNTER → 2019-11-21 | Day surgery (SDC) | payer OTHER ==
[2019-11-16 11:30] VITALS: BMI 38.5
[~2019-11-21] MED LIST changes: +ALPRAZolam 0.25 MG TAB PO PRN; +ASPIRIN 325 MG TAB PO STA; -DEXAMETHASONE SOD PHOSPHATE 10 MG/ML 1 ML VIAL IV ONE; -HYDROmorphone 0.5 MG/0.5 ML SYRINGE IVP PRN; +HYDROmorphone 1 MG/ML 1 ML SYRINGE IVP ONE; -LACTATED RINGERS 1,000 ML IV SCH; -LIDOCAINE 1% 20 ML VIAL (10MG/ML) FOR IV START INTRADERMA PRN; +LIDOCAINE 1% INJ 10MG/ML (20 ML MDV) SQ ONE; +MIDAZOLAM 2 MG/2 ML VIAL IV ONE; -MIDAZOLAM 2 MG/2 ML VIAL IV PRN; -ONDANSETRON 4 MG/2 ML VIAL IVP ONE; +ONDANSETRON 4 MG/2 ML VIAL IVP STA; +ONDANSETRON 4 MG/2 ML VIAL ONE; -SCOPOLAMINE 1.5MG/72HR PATCH TRANSDERM ONE; +SODIUM CHLORIDE 0.9% 1,000 ML IV SCH; +SODIUM CHLORIDE 0.9% 1,000 ML in EMPTY BAG 1 BAG IV ONE
[2019-11-21 07:07] VITALS: RESP 18; TEMP 97.7
--- NOTE | 2019-11-21 12:23 | AN ---
ANGIOGRAPHY REPORT DATE OF SERVICE: 11/11/2019 PERFORMING PHYSICIAN: Maulik Antoine MD. PROCEDURE PERFORMED: 1. Intravascular ultrasound (IVUS) of the inferior vena cava. 2. Intravascular ultrasound (IVUS) of bilateral common iliac veins. 3. Intravascular ultrasound (IVUS) of bilateral external iliac veins. 4. Intravascular ultrasound (IVUS) of bilateral common femoral vein. INDICATION: This is a 49-year-old female patient who continues to struggle with bilateral lower extremities edema. Congestive heart failure was ruled out. Chronic deep venous thrombosis was ruled out. She is on diuretics and in spite of that, she continues to have bilateral lower extremities edema. Because of that, she was brought today to undergo intravascular ultrasound of bilateral iliacs and femoral veins. APPROACH: Right common femoral vein and left common femoral vein. COMPLICATION: None. LEVEL OF SEDATION: Moderate with sedation length of 45 minutes. PROCEDURE DESCRIPTION: After obtaining an informed consent, the patient was brought to the cardiac dental laboratory worker. The patient was prepped and draped in the usual sterile fashion. Local analgesia was ere achieved by injecting 2% lidocaine subcutaneously into both groins. At that point, I did cannulate both common femoral vein using micropuncture technique under ultrasound guidance, then I placed an 8-British sheath in the right as well as left common femoral vein. After that, I initially advanced a 0.35 wire into the inferior vena cava and then I did advance the IVUS catheter from the left groin and pulled manual pullback. I did the same thing from the right groin as well. The procedure was completed without any complication. FINDINGS: The inferior vena cava was measured 150 mm2. Findings on the right side. 1. Common iliac vein: The reference area was 198 mm2 and the actual area was 52 mm2 with an area of stenosis of 74%. 2. External iliac vein: The reference area was 150 mm2 and the actual area was 73 mm2 with an area of stenosis of 51%. 3. Common femoral vein: The reference area was 125 mm2 with a compressed area of 58 mm2 and area of stenosis of 54%. 4. On the left side, #1 Common iliac vein: the reference area was 200 mm2 with an actual area of 86 mm2 and area of stenosis of 57%. 5. External iliac vein, the reference area was 151 mm2 with compressed area of 74 mm2 and area of stenosis 50%. 6. Common femoral vein: the reference area was 125 mm2 with compressed area of 30 mm2 and area of stenosis 76%. 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 POSTPROCEDURE MANAGEMENT: The patient needs to undergo stenting of both common iliac veins, external iliac veins and common femoral veins from a popliteal approach. MMODL / IJN: [id number] /
[2019-11-21 13:15] VITALS: BP 103/60; PULSE 88
== END ==
LOC: CATHCVL 06:17
PROVIDERS: ATTEND Internal Medicine Interventional Cardiology
DX: I87.1 Compression of vein (principal); I11.9 Hypertensive heart disease without heart failure; G47.30 Sleep apnea, unspecified; Z79.899 Other long term (current) drug therapy; Z82.49 Family history of ischemic heart disease and other diseases of the circulatory system
CPT/HCPCS: 76937; 37252; 37253; 36012; 81025; C1769 ×3; C1894; C1753; J2250; J2405; J2001; J1170

== ENCOUNTER → 2019-12-13 | Outpatient (CLI) | payer OTHER ==
[2019-12-13 11:12] LABS: HCT 41.8 % (34.0-46.0); HGB 13.6 gm/dL (11.4-16.0); MCH 27.8 pg (25.0-35.0); MCHC 32.5 g/dL (31.0-37.0); MCV 85.5 fL (80.0-100.0); Mean Platelet Volume 7.4; Platelet Count 239 k/uL (150-450); RBC 4.89 m/uL (3.80-5.40); RDW 13.6 % (11.5-15.5); WBC 5.6 k/uL (3.8-10.6)
== END | disposition home or self-care (01) ==
LOC: LABPAT 10:07
PROVIDERS: ATTEND Internal Medicine Interventional Cardiology
DX: Z01.812 Encounter for preprocedural laboratory examination (principal); R60.0 Localized edema
CPT/HCPCS: 36415; 82565; 84520; 85027

== ENCOUNTER 2019-12-19 06:23 | Day surgery (SDC) | payer OTHER ==
[2019-12-15 12:12] VITALS: BMI 38.7
[2019-12-19] MEDS ORDERED: ALPRAZolam 0.25 MG TAB PO PRN (06:30)
[2019-12-19] MEDS ORDERED: SODIUM CHLORIDE 0.9% 1,000 ML in EMPTY BAG 1 BAG IV ONE (06:30)
[2019-12-19] MEDS ORDERED: ASPIRIN 325 MG TAB PO ONE (07:00)
[2019-12-19 07:23] LABS: African American GFR (CKD) >90 (>60 ml/min/1.73 sqM); Anion Gap 7 mmol/L; Blood Urea Nitrogen 22 mg/dL (7-17); Calcium 8.6 mg/dL (8.4-10.2); Carbon Dioxide 24 mmol/L (22-30); Chloride 105 mmol/L (98-107); Glucose 96 mg/dL (74-99); Non-African American GFR(CKD) 86 (>60 ml/min/1.73 sqM); Sodium 136 mmol/L (137-145)
[2019-12-19 07:42] LABS: Potassium 3.7 mmol/L (3.5-5.1)
[2019-12-19] MEDS: MIDAZOLAM 2 MG/2 ML VIAL IV ONE ×2 (07:54→08:18)
[2019-12-19] MEDS ORDERED: LIDOCAINE 1% INJ 10MG/ML (20 ML MDV) SQ ONE ×3 (07:57→08:11)
[2019-12-19] MEDS ORDERED: HYDROmorphone 1 MG/ML 1 ML SYRINGE IVP ONE (08:10)
[2019-12-19] MEDS ORDERED: CLOPIDOGREL 75 MG TAB PO ONE (08:54)
[2019-12-19] MEDS ORDERED: ONDANSETRON 4 MG/2 ML VIAL IVP ONE (09:06)
[2019-12-19] MEDS ORDERED: IOPAMIDOL-300 100ML BTL IV ONE ×2 (09:20)
[2019-12-19] MEDS ORDERED: IOPAMIDOL-250 100ML BTL IV ONE (09:20)
--- NOTE | 2019-12-19 09:51 | IR ---
EXAMINATION TYPE: IR stent intravas non coronary DATE OF EXAM: 12/19/2019 COMPARISON: NONE HISTORY: Fluoroscopy time. Fluoroscopy was provided to the referring clinician. 16.2 minutes of fluoroscopy provided.
--- NOTE | 2019-12-19 10:02 | AN ---
ANGIOGRAPHY REPORT PERCUTANEOUS PERIPHERAL INTERVENTION: DATE OF SERVICE: December 19, 2019. PROCEDURES PERFORMED: 1. Intravascular ultrasound, IVUS, of IVC, bilateral common iliac vein, bilateral external iliac vein, and bilateral common femoral veins. 2. Successful stenting of the right and left common iliac veins using 90 x 18 mm Wallstent with excellent results. 3. An angiogram of bilateral common iliac vein, external iliac vein and common femoral veins, as well as IVC. INDICATION: This is a 49-year-old female patient who continues to have bilateral lower extremities edema, worse on the left side than the right side in spite of using diuretics. She underwent intravascular ultrasound, IVUS, and that revealed severe disease involving the bilateral common iliac veins and external iliac veins. Because of that, she was brought today to undergo an intervention. APPROACH: Right and left common femoral veins. COMPLICATION: None. LEVEL OF SEDATION: Moderate with sedation length of 81 minutes. PROCEDURE DESCRIPTION: After obtaining an informed consent, the patient was brought to the cardiac computer lab para professional. The right and left common femoral veins were cannulated using micropuncture technique under ultrasound guidance, the micropuncture wire passed easily then I placed initially an 8-Namibian sheath in both common femoral veins. After that anticoagulation was initiated using heparin and the patient was given 10,000 units of heparin IV with ACT monitoring throughout the procedure. Subsequently, I did advance two long J-wire across the venous sheath all the way to the IVC. Intravascular ultrasound was applied bilaterally using manual pullback. After that, we decided to pursue with stenting and please see a separate paragraph for that. By the end, I did bilateral angiogram as well. The procedure was completed without any complication. INTRAVASCULAR ULTRASOUND, IVUS, DATA: 1. Common Iliac Veins: On the right side, the area of stenosis was 66%. On the left side, the area stenosis was 78.5%. 2. External Iliac Veins: On the right side, the area of stenosis was 42.7% and on the left side, it was 41.3%. 3. Common Femoral Veins: On the right side, the area of stenosis was 36.3% and on the left side was 10.4%. STENTING OF THE RIGHT AND LEFT COMMON ILIAC VEINS: After heparin was given, I did exchange my 8-Namibian sheath into 10-Namibian sheath using 0.[address] two stiff super core wire in both iliac veins all the way to the IVC. After that I did predilatation using 14 x 4 mm balloon which was an [place] balloon before we deployed 2 Wallstent under fluoroscopy guidance. Both stents were 18 x 90 mm Wallstent. Both stents were deployed under fluoroscopy guidance simultaneously. Of course, the deployment was guided by the intravascular ultrasound, IVUS, and marking the screen where the starting point and end point. Postdilatation was performed using 14 mm balloon. Intravascular ultrasound was applied again and showed excellent results. By the end, I did bilateral angiogram which showed excellent angiographic results. The procedure was completed without any complication. POSTPROCEDURE MANAGEMENT: 1. Dual antiplatelet therapy. 2. followup with the patient. 3. Discharge home tomorrow morning. MMODL / IJN: [id number] /
[2019-12-19] MEDS ORDERED: ONDANSETRON 4 MG/2 ML VIAL ONE (11:51)
[2019-12-19] MEDS ORDERED: ONDANSETRON 4 MG/2 ML VIAL IVP PRN (11:54)
[2019-12-19 14:50] VITALS: RESP 18
[2019-12-19] MEDS: SODIUM CHLORIDE 0.9% 1,000 ML in EMPTY BAG 1 BAG IV SCH ×4 (16:58→17:01)
[2019-12-19] MEDS: IBUPROFEN 800 MG TAB PO PRN (17:29)
[2019-12-19] MEDS: PREGABALIN 75 MG CAP PO SCH (20:52)
[2019-12-19] MEDS ORDERED: tiZANidine 4 MG TAB PO SCH (21:00)
[2019-12-20] MEDS: IBUPROFEN 800 MG TAB PO PRN (04:50)
[2019-12-20 06:44] LABS: Basophils % (A) 0 %; Eosinophils # (A) 0.1 k/uL (0-0.7); Eosinophils % (A) 2 %; HCT 37.7 % (34.0-46.0); HGB 12.6 gm/dL (11.4-16.0); Lymphocytes # (A) 1.2 k/uL (1.0-4.8); Lymphocytes % (A) 15 %; MCHC 33.3 g/dL (31.0-37.0); MCV 87.2 fL (80.0-100.0); Mean Platelet Volume 7.8; Monocytes # (A) 0.5 k/uL (0-1.0); Monocytes % (A) 6 %; Neutrophils % (A) 75 %; Platelet Count 213 k/uL (150-450); RBC 4.33 m/uL (3.80-5.40); RDW 13.8 % (11.5-15.5)
[2019-12-20 07:04] LABS: African American GFR (CKD) >90 (>60 ml/min/1.73 sqM); Anion Gap 9 mmol/L; Blood Urea Nitrogen 17 mg/dL (7-17); Calcium 8.5 mg/dL (8.4-10.2); Carbon Dioxide 24 mmol/L (22-30); Chloride 104 mmol/L (98-107); Glucose 75 mg/dL (74-99); Non-African American GFR(CKD) >90 (>60 ml/min/1.73 sqM); Potassium 3.5 mmol/L (3.5-5.1); Sodium 137 mmol/L (137-145)
[2019-12-20] MEDS ORDERED: PANTOPRAZOLE 40 MG TABLET PO SCH (07:30)
[2019-12-20 08:08] VITALS: BP 109/75; PULSE 102; TEMP 98.2
[2019-12-20] MEDS: PREGABALIN 75 MG CAP PO SCH (08:09)
[2019-12-20] MEDS ORDERED: buPROPion SR 150 MG TABLET.ER PO SCH (09:00)
[2019-12-20] MEDS ORDERED: CHOLECALCIFEROL 1,000 UNIT TAB PO SCH (09:00)
[2019-12-20] MEDS ORDERED: ASPIRIN 325 MG TAB PO SCH (09:00)
[2019-12-20] MEDS ORDERED: FUROSEMIDE 40 MG TAB PO SCH (09:00)
[2019-12-20] MEDS ORDERED: CLOPIDOGREL 75 MG TAB PO SCH (09:00)
--- NOTE | 2019-12-20 10:22 | DS ---
DISCHARGE SUMMARY ADMISSION DATE: December 19, 2019 DISCHARGE DATE: December 20, 2019 BRIEF HISTORY: This is a pleasant 49-year-old female patient who underwent yesterday successful kissing stents of right and left common iliac veins with an excellent angiographic result and without any complication. The patient is going to be discharged home today on dual antiplatelet therapy and I will follow up with her in the office next week. MMODL / MARYLINN: [id number] /
== END 2019-12-20 13:34 | disposition home or self-care (01) ==
LOC: CATHCVL 06:23 → 3SCARD 09:18 → CATHCVL 12-20 13:34
PROVIDERS: ATTEND Internal Medicine Interventional Cardiology
DX: I87.1 Compression of vein (principal); I11.9 Hypertensive heart disease without heart failure; G47.30 Sleep apnea, unspecified; Z79.899 Other long term (current) drug therapy; Z82.49 Family history of ischemic heart disease and other diseases of the circulatory system
CPT/HCPCS: 37238; 37239; 85347; 37252; 37253; 80048 ×2; 85025; 81025; C1769 ×6; C1894 ×2; C1753; C1876; C1725; J2250; S0106; J2405; J2001; J1170; J1644; Q9966

== ENCOUNTER 2020-06-17 16:30 | Emergency (ER) | payer OTHER ==
[2020-06-17] MEDS ORDERED: SODIUM CHLORIDE 0.9% 1,000 ML IV STA (16:47)
--- NOTE | 2020-06-17 16:55 | ED ---
URI HPI - General Chief Complaint: Upper Respiratory Infection Stated Complaint: sore throat, SOB, congestion Time Seen by Provider: 06/17/20 16:42 Source: patient, RN notes reviewed, old records reviewed Mode of arrival: ambulatory Limitations: no limitations - History of Present Illness Initial Comments: This is a 50 female DF for evaluation of upper respiratory infection cough congestion runny nose not feeling well. No recent travel history or sick contacts. 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 She is much occasional fever and chills and some sinus pressure and pain MD Complaint: fever, cough, sore throat, nasal congestion -: week(s) Severity: mild Severity scale (1-10): 2 Consistency: intermittent Improves With: nothing Worsens With: nothing Context: sick contacts Associated Symptoms: fever, myalgias, cough Treatments Prior to Arrival: none - Related Data Home Medications Medication Instructions Recorded Confirmed Omeprazole 20 mg PO AC-BID 04/14/17 12/19/19 Albuterol Inhaler (Mhu) [Ventolin 1 - 2 puff INHALATION Q6HR PRN 07/17/17 12/19/19 Hfa Inhaler (Mhu)] Cholecalciferol [Vitamin D3 (25 2,000 unit PO DAILY 09/24/18 12/19/19 Mcg = 1000 Iu)] Furosemide [Lasix] 40 mg PO DAILY 09/24/18 12/19/19 Pregabalin [Lyrica] 75 mg PO BID 09/24/18 12/19/19 buPROPion SR [Wellbutrin SR] 150 mg PO DAILY 09/22/19 12/19/19 tiZANidine [Zanaflex] 4 mg PO HS 09/22/19 12/19/19 Ibuprofen [Motrin] 800 mg PO TID PRN 11/16/19 12/19/19 Previous Rx's Medication Instructions Recorded Aspirin 325 mg PO DAILY #90 tab 12/19/19 Clopidogrel [Plavix] 75 mg PO DAILY #90 tab 12/19/19 Allergies Allergy/AdvReac Type Severity Reaction Status Date / Time No Known Allergies Allergy Verified 12/15/19 12:08 Review of Systems ROS Statement: Those systems with pertinent positive or pertinent negative responses have been documented in the HPI. ROS Other: All systems not noted in ROS Statement are negative. Past Medical History Past Medical History: COPD, GERD/Reflux, Osteoarthritis (OA), Sleep Apnea/CPAP/BIPAP Additional Past Medical History / Comment(s): Back pain. Heel Spurs. USES CPAP. Bunions History of Any Multi-Drug Resistant Organisms: None Reported Past Surgical History: Orthopedic Surgery Additional Past Surgical History / Comment(s): Pain Injection Procedures; Colonoscopy Past Anesthesia/Blood Transfusion Reactions: No Reported Reaction Additional Past Anesthesia/Blood Transfusion Reaction / Comment(s): "Trouble getting tube in, tooth chipped." Past Psychological History: Depression Smoking Status: Never smoker Past Alcohol Use History: None Reported Past Drug Use History: None Reported - Past Family History Mother Family Medical History: No Reported History Father Family Medical History: Pulmonary Embolus General Exam Limitations: no limitations General appearance: alert, in no apparent distress Head exam: Present: atraumatic, normocephalic, normal inspection Eye exam: Present: normal appearance, PERRL, EOMI. Absent: scleral icterus, conjunctival injection, periorbital swelling ENT exam: Present: normal exam, mucous membranes moist Neck exam: Present: normal inspection. Absent: tenderness, meningismus, lymphadenopathy Respiratory exam: Present: normal lung sounds bilaterally. Absent: respiratory distress, wheezes, rales, rhonchi, stridor Cardiovascular Exam: Present: regular rate, normal rhythm, normal heart sounds. Absent: systolic murmur, diastolic murmur, rubs, gallop, clicks GI/Abdominal exam: Present: soft, normal bowel sounds. Absent: distended, tenderness, guarding, rebound, rigid Extremities exam: Present: normal inspection, full ROM, normal capillary refill. Absent: tenderness, pedal edema, joint swelling, calf tenderness Back exam: Present: normal inspection Neurological exam: Present: alert, oriented X3, CN II-XII intact Psychiatric exam: Present: normal affect, normal mood Skin exam: Present: warm, dry, intact, normal color. Absent: rash Course Vital Signs 06/17/20 16:35 Temperature 99.1 F Pulse Rate 114 H Respiratory 20 Rate Blood Pressure 106/73 O2 Sat by Pulse 97 Oximetry - Reevaluation(s) Reevaluation #1: 06/17/20 19:17 Medical records reviewed Reevaluation #2: 06/17/20 19:17 No distress Reevaluation #3: 06/17/20 19:18 Patient informed results feels fine with discharge Medical Decision Making - Medical Decision Making 50 female in no distress does have covert like symptoms progressed for infection sinusitis will try antibiotic trial patient can be discharged home - Lab Data Result diagrams: 06/17/20 17:11 06/17/20 17:11 Lab Results 06/17/20 06/17/20 06/17/20 Range/Units 17:11 17:11 17:11 WBC 6.6 (3.8-10.6) k/uL RBC 5.30 (3.80-5.40) m/uL Hgb 14.3 (11.4-16.0) gm/dL Hct 44.2 (34.0-46.0) % MCV 83.3 (80.0-100.0) fL MCH 27.0 (25.0-35.0) pg MCHC 32.4 (31.0-37.0) g/dL RDW 13.8 (11.5-15.5) % Plt Count 201 (150-450) k/uL Neutrophils % 74 % Lymphocytes % 11 % Monocytes % 6 % Eosinophils % 7 % Basophils % 1 % Neutrophils # 4.9 (1.3-7.7) k/uL Lymphocytes # 0.7 L (1.0-4.8) k/uL Monocytes # 0.4 (0-1.0) k/uL Eosinophils # 0.5 (0-0.7) k/uL Basophils # 0.0 (0-0.2) k/uL PT 9.7 (9.0-12.0) sec INR 0.9 (<1.2) APTT 22.5 (22.0-30.0) sec D-Dimer 0.37 (<0.60) mg/L FEU Sodium 141 (137-145) mmol/L Potassium 3.4 L (3.5-5.1) mmol/L Chloride 106 (98-107) mmol/L Carbon Dioxide 23 (22-30) mmol/L Anion Gap 12 mmol/L BUN 15 (7-17) mg/dL Creatinine 1.03 (0.52-1.04) mg/dL Est GFR (CKD-EPI)AfAm 73 (>60 ml/min/1.73 sqM) Est GFR (CKD-EPI)NonAf 63 (>60 ml/min/1.73 sqM) Glucose 109 H (74-99) mg/dL Plasma Lactic Acid Gwyn (0.7-2.0) mmol/L Calcium 9.2 (8.4-10.2) mg/dL Magnesium 1.9 (1.6-2.3) mg/dL Total Bilirubin 0.7 (0.2-1.3) mg/dL AST 29 (14-36) U/L ALT 30 (4-34) U/L Alkaline Phosphatase 167 H (38-126) U/L Lactate Dehydrogenase 620 H (313-618) U/L C-Reactive Protein 42.7 H (<10.0) mg/L Total Protein 7.4 (6.3-8.2) g/dL Albumin 4.6 (3.5-5.0) g/dL 06/17/20 Range/Units 17:11 WBC (3.8-10.6) k/uL RBC (3.80-5.40) m/uL Hgb (11.4-16.0) gm/dL Hct (34.0-46.0) % MCV (80.0-100.0) fL MCH (25.0-35.0) pg MCHC (31.0-37.0) g/dL RDW (11.5-15.5) % Plt Count (150-450) k/uL Neutrophils % % Lymphocytes % % Monocytes % % Eosinophils % % Basophils % % Neutrophils # (1.3-7.7) k/uL Lymphocytes # (1.0-4.8) k/uL Monocytes # (0-1.0) k/uL Eosinophils # (0-0.7) k/uL Basophils # (0-0.2) k/uL PT (9.0-12.0) sec INR (<1.2) APTT (22.0-30.0) sec D-Dimer (<0.60) mg/L FEU Sodium (137-145) mmol/L Potassium (3.5-5.1) mmol/L Chloride (98-107) mmol/L Carbon Dioxide (22-30) mmol/L Anion Gap mmol/L BUN (7-17) mg/dL Creatinine (0.52-1.04) mg/dL Est GFR (CKD-EPI)AfAm (>60 ml/min/1.73 sqM) Est GFR (CKD-EPI)NonAf (>60 ml/min/1.73 sqM) Glucose (74-99) mg/dL Plasma Lactic Acid Gwyn 1.1 (0.7-2.0) mmol/L Calcium (8.4-10.2) mg/dL Magnesium (1.6-2.3) mg/dL Total Bilirubin (0.2-1.3) mg/dL AST (14-36) U/L ALT (4-34) U/L Alkaline Phosphatase (38-126) U/L Lactate Dehydrogenase (313-618) U/L C-Reactive Protein (<10.0) mg/L Total Protein (6.3-8.2) g/dL Albumin (3.5-5.0) g/dL - EKG Data -: EKG Interpreted by Me (EKG sinus tach 105. 124 QRS 68 QTc 428) - Radiology Data Radiology results: report reviewed (Chest x-rays negative for acute disease), image reviewed Disposition Clinical Impression: Sinusitis, Acute upper respiratory infection Disposition: HOME SELF-CARE Condition: Good Instructions (If sedation given, give patient instructions): Upper Respiratory Infection (ED) Is patient prescribed a controlled substance at d/c from ED?: No Referrals: Gavino Matias MD [Primary Care Provider] - 1-2 days
[2020-06-17 17:32] LABS: Basophils % (A) 1 %; Eosinophils # (A) 0.5 k/uL (0-0.7); Eosinophils % (A) 7 %; HCT 44.2 % (34.0-46.0); HGB 14.3 gm/dL (11.4-16.0); Lymphocytes # (A) 0.7 k/uL (1.0-4.8); Lymphocytes % (A) 11 %; MCHC 32.4 g/dL (31.0-37.0); MCV 83.3 fL (80.0-100.0); Mean Platelet Volume 7.2; Monocytes # (A) 0.4 k/uL (0-1.0); Monocytes % (A) 6 %; Neutrophils # (A) 4.9 k/uL (1.3-7.7); Neutrophils % (A) 74 %; Platelet Count 201 k/uL (150-450); RDW 13.8 % (11.5-15.5); WBC 6.6 k/uL (3.8-10.6)
[2020-06-17 17:46] LABS: Albumin 4.6 g/dL (3.5-5.0); C Reactive Protein 42.7 mg/L (<10.0); Calcium 9.2 mg/dL (8.4-10.2); Magnesium 1.9 mg/dL (1.6-2.3); Potassium 3.4 mmol/L (3.5-5.1); Total Bilirubin 0.7 mg/dL (0.2-1.3); Total Protein 7.4 g/dL (6.3-8.2)
[2020-06-17 17:50] LABS: D-Dimer 0.37 mg/L FEU (<0.60); INR 0.9 (<1.2); Partial Thromboplastin Time 22.5 sec (22.0-30.0); Prothrombin Time 9.7 sec (9.0-12.0)
--- NOTE | 2020-06-17 18:36 | XR ---
EXAMINATION TYPE: XR chest 1V portable DATE OF EXAM: 06/17/2020 COMPARISON: 06/11/2017 HISTORY: Cough TECHNIQUE: Single view FINDINGS: Heart and mediastinum are normal. Lungs are clear. Diaphragm is normal. Bony thorax appears normal. There are no hilar masses. IMPRESSION: Normal chest. No change.
[2020-06-17 19:18] VITALS: BP 124/79; PULSE 99; RESP 18; TEMP 99.2
[2020-06-18 10:07] LABS: Ferritin 60.4 ng/mL (10.0-291.0)
== END 2020-06-17 19:40 | disposition home or self-care (01) ==
LOC: EC 16:30
DX: J06.9 Acute upper respiratory infection, unspecified (principal); J32.9 Chronic sinusitis, unspecified; G47.30 Sleep apnea, unspecified; K21.9 Gastro-esophageal reflux disease without esophagitis; J44.9 Chronic obstructive pulmonary disease, unspecified; F32.9 Major depressive disorder, single episode, unspecified; M19.90 Unspecified osteoarthritis, unspecified site; Z79.899 Other long term (current) drug therapy; Z99.89 Dependence on other enabling machines and devices; Z20.828 Contact with and (suspected) exposure to other viral communicable diseases
CPT/HCPCS: 99284; 96360; 96361; 36415; 93005; 85379; 80053; 82728; 83605; 83615; 83735; 85025; 85610; 85730; 86140; 87040; 84145; 71045; U0003

== ENCOUNTER 2020-08-28 12:29 | Emergency (ER) | payer OTHER ==
[2020-08-28 12:35] VITALS: BP 100/69; PULSE 89; RESP 20; TEMP 97.9
[2020-08-28] MEDS ORDERED: LIDOCAINE 1% INJ 10MG/ML (20 ML MDV) SQ ONE (12:51)
--- NOTE | 2020-08-28 13:10 | ED ---
General Adult HPI - General Chief complaint: Skin/Abscess/Foreign Body Stated complaint: rt foot toe pain Time Seen by Provider: 08/28/20 12:30 Source: patient, RN notes reviewed, old records reviewed Mode of arrival: ambulatory Limitations: no limitations - History of Present Illness Initial comments: This is a 50-year-old female who presents emergency Department complaining that she has a infected total right by her nail on the right first toe. Patient states his been ongoing for the last 3 or 4 days. Patient states she's tried to stick a sharp object and that area to the left the pus out but has not helped and is only gotten worse. Patient states she has had this happen before. Patient states she cut her nails too short. Patient denies any fever chills. Patient denies any streaking of the erythema. - Related Data Home Medications Medication Instructions Recorded Confirmed Omeprazole 20 mg PO AC-BID 04/14/17 12/19/19 Albuterol Inhaler (Mhu) [Ventolin 1 - 2 puff INHALATION Q6HR PRN 07/17/17 12/19/19 Hfa Inhaler (Mhu)] Cholecalciferol [Vitamin D3 (25 2,000 unit PO DAILY 09/24/18 12/19/19 Mcg = 1000 Iu)] Furosemide [Lasix] 40 mg PO DAILY 09/24/18 12/19/19 Pregabalin [Lyrica] 75 mg PO BID 09/24/18 12/19/19 buPROPion SR [Wellbutrin SR] 150 mg PO DAILY 09/22/19 12/19/19 tiZANidine [Zanaflex] 4 mg PO HS 09/22/19 12/19/19 Ibuprofen [Motrin] 800 mg PO TID PRN 11/16/19 12/19/19 Previous Rx's Medication Instructions Recorded Aspirin 325 mg PO DAILY #90 tab 12/19/19 Clopidogrel [Plavix] 75 mg PO DAILY #90 tab 12/19/19 Amoxic-Pot Clav 875-125Mg 1 tab PO BID 7 Days #14 tab 06/17/20 [Augmentin 875-125] Cephalexin [Keflex] 500 mg PO Q6HR #40 cap 08/28/20 Allergies Allergy/AdvReac Type Severity Reaction Status Date / Time No Known Allergies Allergy Verified 08/28/20 12:35 Review of Systems ROS Statement: Those systems with pertinent positive or pertinent negative responses have been documented in the HPI. ROS Other: All systems not noted in ROS Statement are negative. Past Medical History Past Medical History: COPD, GERD/Reflux, Osteoarthritis (OA), Sleep Apnea/CPAP/BIPAP Additional Past Medical History / Comment(s): Back pain. Heel Spurs. USES CPAP. Bunions History of Any Multi-Drug Resistant Organisms: None Reported Past Surgical History: Orthopedic Surgery Additional Past Surgical History / Comment(s): Pain Injection Procedures; Colonoscopy Past Anesthesia/Blood Transfusion Reactions: No Reported Reaction Additional Past Anesthesia/Blood Transfusion Reaction / Comment(s): "Trouble getting tube in, tooth chipped." Past Psychological History: Depression Smoking Status: Never smoker Past Alcohol Use History: None Reported Past Drug Use History: None Reported - Past Family History Mother Family Medical History: No Reported History Father Family Medical History: Pulmonary Embolus General Exam - General Exam Comments Initial Comments: GENERAL Patient is well-developed and well-nourished. Patient is in mild distress. EYES Patient's pupils are equal and round. Extraocular motion is intact SKIN Unremarkable NEURO The patient is alert and oriented 3 PYSCH Patient has normal interpersonal interactions. MUSCULOSKELETAL Right first toe has a paronychia on the lateral aspect Limitations: no limitations Course Vital Signs 08/28/20 12:32 Temperature 97.9 F Pulse Rate 89 Respiratory 20 Rate Blood Pressure 100/69 O2 Sat by Pulse 98 Oximetry Procedures - Procedures Initial comment: After I did a digital block the patient's toy also did a partial removal of the toenail. I did this because the nail was sticking into the skin quite significantly and the patient already broken the nail multiple places so the edges were very jagged - Incision & Drainage Consent Obtained: verbal consent Site: other (Right first toe) Anesthetic Used: lidocaine 1% Amount (mLs): 4 (digital block) Scalpel Used: #11 Needle Aspiration Performed?: No I&D Drainage Obtained: Pus, Blood Culture Obtained?: No Complications: pain Patient Tolerated Procedure: well Disposition Clinical Impression: Paronychia Disposition: HOME SELF-CARE Condition: Good Instructions (If sedation given, give patient instructions): Abscess Incision and Drainage (DC) Additional Instructions: Patient should return if symptoms worsen. Prescriptions: Cephalexin [Keflex] 500 mg PO Q6HR #40 cap Is patient prescribed a controlled substance at d/c from ED?: No Referrals: Gavino Matias MD [Primary Care Provider] - 1-2 days Time of Disposition: 13:10
== END 2020-08-28 13:12 | disposition home or self-care (01) ==
LOC: EC 12:29
DX: L03.031 Cellulitis of right toe (principal); J44.9 Chronic obstructive pulmonary disease, unspecified; F32.9 Major depressive disorder, single episode, unspecified; M19.90 Unspecified osteoarthritis, unspecified site; G47.30 Sleep apnea, unspecified; Z99.89 Dependence on other enabling machines and devices; K21.9 Gastro-esophageal reflux disease without esophagitis; Z79.51 Long term (current) use of inhaled steroids; Z79.899 Other long term (current) drug therapy
CPT/HCPCS: 10060; 11750; 99283; J2001

== ENCOUNTER → 2021-01-10 | Outpatient (CLI) | payer OTHER ==
--- NOTE | 2021-01-10 11:24 | MM ---
Reason for exam: screening (asymptomatic). Last mammogram was performed 1 year and 2 months ago. History: Patient is postmenopausal and is nulliparous. Physical Findings: A clinical breast exam by your physician is recommended on an annual basis and results should be correlated with mammographic findings. MG Screening Mammo w CAD Bilateral CC and MLO view(s) were taken. Prior study comparison: November 11, 2019, bilateral MG screening mammo w CAD. August 19, 2018, bilateral MG screening mammo w CAD. The breast tissue is heterogeneously dense. This may lower the sensitivity of mammography. There is no discrete abnormality. ASSESSMENT: Negative, BI-RAD 1 RECOMMENDATION: Routine screening mammogram of both breasts in 1 year.
== END ==
LOC: RADMAMWWP 07:04
PROVIDERS: ATTEND Internal Medicine
DX: Z12.31 Encounter for screening mammogram for malignant neoplasm of breast (principal); Z78.0 Asymptomatic menopausal state
CPT/HCPCS: 77067

== ENCOUNTER 2021-10-18 19:12 | Emergency (ER) | payer MEDICARE, OTHER ==
[2021-10-18] MEDS ORDERED: ACETAMINOPHEN TAB 500 MG TAB PO STA (20:45)
--- NOTE | 2021-10-18 21:52 | XR ---
EXAMINATION TYPE: XR chest 2V DATE OF EXAM: 10/18/2021 COMPARISON: 06/17/2020 HISTORY: Chest pressure. TECHNIQUE: FINDINGS: Heart and mediastinum are normal. Lungs are clear. Diaphragm is normal. Bony thorax appears normal. IMPRESSION: Normal chest. No change.
--- NOTE | 2021-10-18 21:55 | ED ---
General Adult HPI - General Chief complaint: Upper Respiratory Infection Stated complaint: Covid+, chest heaviness, cough Time Seen by Provider: 10/18/21 20:33 Source: patient Mode of arrival: ambulatory Limitations: no limitations - History of Present Illness Initial comments: 51 year-old female patient presents to the emergency department requesting chest xray. States she was diagnosed with COVID last week and is supposed to return to work on Thursday. States she is still coughing and felt some chest pressure today so wanted to be rechecked, she does not feel ready to return to work. She denies any current fever or chills. this is still feels quite fatigued. Denies any shortness of breath. Denies vomiting or diarrhea. States she did complete a steroid and antibiotic from her physician. - Related Data Home Medications Medication Instructions Recorded Confirmed Omeprazole 20 mg PO AC-BID 04/14/17 12/19/19 Albuterol Inhaler (Mhu) [Ventolin 1 - 2 puff INHALATION Q6HR PRN 07/17/17 12/19/19 Hfa Inhaler (Mhu)] Cholecalciferol [Vitamin D3 (25 2,000 unit PO DAILY 09/24/18 12/19/19 Mcg = 1000 Iu)] Furosemide [Lasix] 40 mg PO DAILY 09/24/18 12/19/19 Pregabalin [Lyrica] 75 mg PO BID 09/24/18 12/19/19 buPROPion SR [Wellbutrin SR] 150 mg PO DAILY 09/22/19 12/19/19 tiZANidine [Zanaflex] 4 mg PO HS 09/22/19 12/19/19 Ibuprofen [Motrin] 800 mg PO TID PRN 11/16/19 12/19/19 Previous Rx's Medication Instructions Recorded Aspirin 325 mg PO DAILY #90 tab 12/19/19 Clopidogrel [Plavix] 75 mg PO DAILY #90 tab 12/19/19 Amoxic-Pot Clav 875-125Mg 1 tab PO BID 7 Days #14 tab 06/17/20 [Augmentin 875-125] Cephalexin [Keflex] 500 mg PO Q6HR #40 cap 08/28/20 Allergies Allergy/AdvReac Type Severity Reaction Status Date / Time No Known Allergies Allergy Verified 10/18/21 19:54 Review of Systems ROS Statement: Those systems with pertinent positive or pertinent negative responses have been documented in the HPI. ROS Other: All systems not noted in ROS Statement are negative. Past Medical History Past Medical History: COPD, GERD/Reflux, Osteoarthritis (OA), Sleep Apnea/CPAP/BIPAP Additional Past Medical History / Comment(s): Back pain. Heel Spurs. USES CPAP. Bunions History of Any Multi-Drug Resistant Organisms: None Reported Past Surgical History: Orthopedic Surgery Additional Past Surgical History / Comment(s): Pain Injection Procedures; Colonoscopy Past Anesthesia/Blood Transfusion Reactions: No Reported Reaction Additional Past Anesthesia/Blood Transfusion Reaction / Comment(s): "Trouble getting tube in, tooth chipped." Past Psychological History: Depression Smoking Status: Never smoker Past Alcohol Use History: None Reported Past Drug Use History: None Reported - Past Family History Mother Family Medical History: No Reported History Father Family Medical History: Pulmonary Embolus General Exam Limitations: no limitations General appearance: alert, in no apparent distress, other (this is a well- developed, well-nourished adult female in no acute distress.) ENT exam: Present: normal exam, normal oropharynx, mucous membranes moist Respiratory exam: Present: normal lung sounds bilaterally. Absent: respiratory distress, wheezes, rales, rhonchi, stridor Cardiovascular Exam: Present: regular rate, normal rhythm, normal heart sounds. Absent: systolic murmur, diastolic murmur, rubs, gallop, clicks GI/Abdominal exam: Present: soft, normal bowel sounds. Absent: distended, tenderness, guarding, rebound, rigid Neurological exam: Present: alert, oriented X3, CN II-XII intact Psychiatric exam: Present: normal affect, normal mood Skin exam: Present: warm, dry, intact, normal color. Absent: rash Course Vital Signs 10/18/21 10/18/21 19:54 22:07 Temperature 99.2 F 98.8 F Pulse Rate 106 H 82 Respiratory 20 17 Rate Blood Pressure 142/83 136/86 O2 Sat by Pulse 97 97 Oximetry Medical Decision Making - Medical Decision Making 51-year-old female patient presents to the emergency department today for evaluation of persistent cough and chest pressure after being diagnosed with COVID-19. Physical examination did reveal clear equal lung sounds. Patient is not in any respiratory distress. Chest x-ray was clear. She is given a few additional days off of work. She is instructed to follow-up with her primary care physician for recheck in 1-2 days. Return parameters were discussed in detail. She verbalizes understanding and agrees with this plan. My attending is Dr. Miller. - Radiology Data Radiology results: report reviewed, image reviewed Two-view x-ray of the chest is obtained. Report was reviewed in its entirety. Impression by Dr. Carlton shows normal chest. No change. Disposition Clinical Impression: COVID-19, Chest heaviness Disposition: HOME SELF-CARE Condition: Good Instructions (If sedation given, give patient instructions): Coronavirus Disease 2019 (COVID-19) Additional Instructions: Follow up with your primary care physician for recheck in 1-2 days. Return for any new, worsening, or concerning symptoms. Is patient prescribed a controlled substance at d/c from ED?: No Referrals: Gavino Matias MD [Primary Care Provider] - 1-2 days Time of Disposition: 21:55
[2021-10-18 22:08] VITALS: BP 136/86; PULSE 82; RESP 17; TEMP 98.8
== END 2021-10-18 22:06 | disposition home or self-care (01) ==
LOC: EC 19:12
DX: U07.1 COVID-19 (principal); J44.9 Chronic obstructive pulmonary disease, unspecified; K21.9 Gastro-esophageal reflux disease without esophagitis; M19.90 Unspecified osteoarthritis, unspecified site; Z79.899 Other long term (current) drug therapy
CPT/HCPCS: 71046; 99284

== ENCOUNTER → 2022-06-10 | Outpatient (CLI) | payer MEDICARE, OTHER ==
--- NOTE | 2022-06-11 11:45 | MM ---
Reason for Exam: Screening (asymptomatic). Last mammogram was performed 1 year(s) and 5 month(s) ago. Patient History: Menarche at age 9. Patient has no children. Postmenopausal. Risk Values: Carli 5 year model risk: 1.3%. NCI Lifetime model risk: 10.3%. Prior Study Comparison: 08/19/2018 Bilateral Screening Mammogram, [facility]. 11/11/2019 Bilateral Screening Mammogram, [facility]. 01/10/2021 Bilateral Screening Mammogram, [facility]. Tissue Density: The breast tissue is heterogeneously dense. This may lower the sensitivity of mammography. Findings: Analyzed By CAD. No suspicious groups of microcalcifications, spiculated or lobular masses, architectural distortion or other secondary signs of malignancy are mammographically apparent. Overall Assessment: Benign, BI-RAD 2 Management: Screening Mammogram of both breasts in 1 year. A negative mammogram report should not preclude additional follow up of suspicious palpable abnormalities. Patient should continue monthly self breast exam. A clinical breast exam by your physician is recommended on an annual basis and results should be correlated with mammographic findings. Electronically signed and approved by: Christian Stoddard D.O. Radiologis
== END | disposition home or self-care (01) ==
LOC: RADMAMWWP 15:41
PROVIDERS: ATTEND Family Medicine
DX: Z12.31 Encounter for screening mammogram for malignant neoplasm of breast (principal)
CPT/HCPCS: 77067

== ENCOUNTER 2022-09-27 17:40 | Emergency (ER) | payer MEDICARE, OTHER ==
[2022-09-27 18:18] VITALS: BP 127/69; PULSE 82; RESP 18; TEMP 98.3
[2022-09-27] MEDS ORDERED: LIDOCAINE 1% INJ 10MG/ML (30 ML VIAL-PF) SQ ONE (19:26)
[2022-09-27] MEDS ORDERED: DIPH,PERTUS(ACELL)TETVAC-LF 0.5 ML VIAL IM ONE (19:31)
--- NOTE | 2022-09-27 19:33 | ED ---
Wound/Laceration HPI - General Chief Complaint: Wound/Laceration Stated Complaint: lt arm lac Time Seen by Provider: 09/27/22 19:25 Source: patient, RN notes reviewed Mode of arrival: ambulatory Limitations: no limitations - History of Present Illness Initial Comments: This is a pleasant 52-year-old female who inadvertently cut her left forearm with a box car bracer at home. Injury occurred about 3-1/2 hours ago. Denying any distal proximal injuries. No distal paresthesias. Patient was able to get hemostasis at home. Denies any significant pain. Denies any chance of foreign body. No headache, no fever or chills, no changes in vision or hearing, no sore throat or difficulty with speech, no neck pain, no chest pain or shortness of breath, no abdominal pain, no nausea or vomiting, no changes in urination or bowel movements, no numbness or tingling, no extremity pain, no skin rashes or lesions. Past medical, surgical, social, and family history reviewed. - Related Data Home Medications Medication Instructions Recorded Confirmed Omeprazole 20 mg PO AC-BID 04/14/17 12/19/19 Albuterol Inhaler [Ventolin Hfa 1 - 2 puff INHALATION Q6HR PRN 07/17/17 12/19/19 Inhaler] Cholecalciferol [Vitamin D3 (25 2,000 unit PO DAILY 09/24/18 12/19/19 Mcg = 1000 Iu)] Furosemide [Lasix] 40 mg PO DAILY 09/24/18 12/19/19 Pregabalin [Lyrica] 75 mg PO BID 09/24/18 12/19/19 buPROPion SR [Wellbutrin SR] 150 mg PO DAILY 09/22/19 12/19/19 tiZANidine [Zanaflex] 4 mg PO HS 09/22/19 12/19/19 Ibuprofen [Motrin] 800 mg PO TID PRN 11/16/19 12/19/19 Previous Rx's Medication Instructions Recorded Aspirin 325 mg PO DAILY #90 tab 12/19/19 Clopidogrel [Plavix] 75 mg PO DAILY #90 tab 12/19/19 Amoxic-Pot Clav 875-125Mg 1 tab PO BID 7 Days #14 tab 06/17/20 [Augmentin 875-125] Cephalexin [Keflex] 500 mg PO Q6HR #40 cap 08/28/20 Allergies Allergy/AdvReac Type Severity Reaction Status Date / Time No Known Allergies Allergy Verified 09/27/22 18:18 Review of Systems ROS Statement: Those systems with pertinent positive or pertinent negative responses have been documented in the HPI. ROS Other: All systems not noted in ROS Statement are negative. Past Medical History Past Medical History: COPD, GERD/Reflux, Osteoarthritis (OA), Sleep Apnea/CPAP/BIPAP Additional Past Medical History / Comment(s): Back pain. Heel Spurs. USES CPAP. Bunions History of Any Multi-Drug Resistant Organisms: None Reported Past Surgical History: Orthopedic Surgery Additional Past Surgical History / Comment(s): Pain Injection Procedures; Colonoscopy Past Anesthesia/Blood Transfusion Reactions: No Reported Reaction Additional Past Anesthesia/Blood Transfusion Reaction / Comment(s): "Trouble getting tube in, tooth chipped." Past Psychological History: Depression Smoking Status: Never smoker Past Alcohol Use History: None Reported Past Drug Use History: None Reported - Past Family History Mother Family Medical History: No Reported History Father Family Medical History: Pulmonary Embolus General Exam Limitations: no limitations General appearance: alert, in no apparent distress Head exam: Present: atraumatic, normocephalic, normal inspection Eye exam: Present: normal appearance, PERRL, EOMI. Absent: scleral icterus, conjunctival injection, periorbital swelling ENT exam: Present: normal exam, mucous membranes moist Neck exam: Present: normal inspection. Absent: tenderness, meningismus, lymphadenopathy Respiratory exam: Present: normal lung sounds bilaterally. Absent: respiratory distress, wheezes, rales, rhonchi, stridor Cardiovascular Exam: Present: regular rate, normal rhythm, normal heart sounds. Absent: systolic murmur, diastolic murmur, rubs, gallop, clicks GI/Abdominal exam: Present: soft. Absent: distended, tenderness, guarding, r ebound, rigid Extremities exam: Present: normal inspection, full ROM, normal capillary refill. Absent: tenderness, pedal edema, joint swelling, calf tenderness Left Elbow exam: Present: normal inspection, full ROM. Absent: tenderness Forearm Wrist exam: Present: laceration. Absent: tenderness, swelling, abrasion, ecchymosis, deformity, crepitus, dislocation, erythema, tenderness over anatomical snuff box, pain with axial thumb loading Hand Wrist exam: Present: normal inspection, full ROM. Absent: tenderness Neuro motor exam: Present: wrist extension intact, thumb opposition intact, thumb IP flexion intact, thumb adduction intact, fingers 2-5 abduction intact Neurosensory exam: Present: radial nerve intact, ulnar nerve intact, median nerve intact Vascular: Present: normal capillary refill. Absent: vascular compromise, Pallo, pulse deficit radial art, pulse deficit ulnar art, pulse deficit brachial art Back exam: Present: normal inspection Neurological exam: Present: alert, oriented X3, CN II-XII intact Psychiatric exam: Present: normal affect, normal mood Skin exam: Present: warm, dry, intact, normal color. Absent: rash Course Vital Signs 09/27/22 18:16 Temperature 98.3 F Pulse Rate 82 Respiratory 18 Rate Blood Pressure 127/69 O2 Sat by Pulse 99 Oximetry Procedures - Laceration Laceration #1 Consent Obtained: verbal consent Indication: laceration Site: upper extremity Size (cm): 3 Description: irregular, clean Depth: simple, single layer Anesthetic Used: lidocaine 1% Anesthesia Technique: local infiltration Amount (mls): 3 Pre-repair: wound explored, irrigated extensively, deep structures intact Type of Sutures: nylon Size of Sutures: 5-0 Number of Sutures: 5 Technique: simple, interrupted Patient Tolerated Procedure: well, no complications Medical Decision Making - Medical Decision Making Patient counseled on wound care. Counseled on signs and symptoms of infection. Return If All Parameters. Voiced Understanding. All Questions Answered. Patient was told to return to the ER for any signs or symptoms worsen. Told to return immediately if any other problems arise. All questions answered. Treatment plan discussed. Patient in agreement Every effort has been made to ensure accuracy of this dictation. However, due to the limitations of electronic medical records and dictation devices, errors in charting still occur. Impression physician is Dr. Wilson Disposition Clinical Impression: Laceration of left forearm Disposition: HOME SELF-CARE Condition: Good Instructions (If sedation given, give patient instructions): Laceration (ED), Care For Your Stitches (ED) Additional Instructions: Suture removal in 10 days Follow-up with your regular physician as directed. Return to the ER immediately if any symptoms worsen, new symptoms arise, or any other problems develop. Is patient prescribed a controlled substance at d/c from ED?: No Referrals: Ellie Najera MD [Primary Care Provider] - 1-2 days Time of Disposition: 20:17
[2022-09-27] MEDS ORDERED: BACITRACIN OINT 1 EACH PACKET TOPICAL ONE (20:16)
== END 2022-09-27 21:53 | disposition home or self-care (01) ==
LOC: EC 17:40
DX: S51.812A Laceration without foreign body of left forearm, initial encounter (principal); Z23 Encounter for immunization; J44.9 Chronic obstructive pulmonary disease, unspecified; K21.9 Gastro-esophageal reflux disease without esophagitis; M19.90 Unspecified osteoarthritis, unspecified site; G47.30 Sleep apnea, unspecified; F32.A Depression, unspecified; Z79.51 Long term (current) use of inhaled steroids; Z79.82 Long term (current) use of aspirin; Z79.83 Long term (current) use of bisphosphonates; Z79.899 Other long term (current) drug therapy; W27.5XXA Contact with paper-cutter, initial encounter; Y92.009 Unspecified place in unspecified non-institutional (private) residence as the place of occurrence of the external cause
CPT/HCPCS: 12002; 90471; 99282; 90715; J2001

== ENCOUNTER → 2023-02-02 | Outpatient (CLI) | payer MEDICARE, OTHER ==
--- NOTE | 2023-02-02 22:11 | US ---
EXAMINATION TYPE: US thyroid st tissue head/neck DATE OF EXAM: 02/02/2023 COMPARISON: NONE CLINICAL HISTORY: R94.6 ABN THYROID. Abnormal thyroid function test. GLAND SIZE: Right Lobe: 4.7 x 1.9 x 1.6 cm Overall Parenchyma: Slightly heterogeneous. Left Lobe: 3.4 x 1.3 x 1.3 cm Overall Parenchyma: Slightly heterogeneous. Isthmus Thickness: 0.2 cm NODULES RIGHT: # of nodules measured on right: 0 LEFT: # of nodules measured on left: 0 ISTHMUS: # of nodules measured in the isthmus: 0 Bilateral neck scanned, no evidence of lymphadenopathy. Slightly heterogeneous thyroid gland with asymmetric smaller left thyroid lobe. No discrete nodules. IMPRESSION: As above
== END | disposition home or self-care (01) ==
LOC: RADUSWWP 16:21
PROVIDERS: ATTEND Family Medicine
DX: R94.6 Abnormal results of thyroid function studies (principal)
CPT/HCPCS: 76536

== ENCOUNTER → 2023-07-03 | Outpatient (CLI) | payer MEDICARE, OTHER ==
--- NOTE | 2023-07-06 11:39 | MM ---
Reason for Exam: Screening (asymptomatic). Last screening mammogram was performed 12 month(s) ago. Patient History: Menarche at age 9. Patient has no children. Postmenopausal. Risk Values: Carli 5 year model risk: 1.4%. NCI Lifetime model risk: 10.1%. Prior Study Comparison: 11/11/2019 Bilateral Screening Mammogram, [facility]. 01/10/2021 Bilateral Screening Mammogram, [facility]. 06/10/2022 Bilateral MG screening mammo w CAD, [facility]. Tissue Density: The breast tissue is heterogeneously dense. This may lower the sensitivity of mammography. Findings: Analyzed By CAD. There is a large new area of pleomorphic calcifications within the upper outer quadrant measuring approximately 5 x 5 x 4.7 cm. Spot magnification views are recommended. Within the left breast there is an asymmetric density 5.8 cm from the nipple upper outer quadrant. Additional views are also recommended left breast. Overall Assessment: Incomplete: need additional imaging evaluation, BI-RAD 0 Management: Diagnostic Mammogram of both breasts. . Patient should continue monthly self-breast exams. A clinical breast exam by your physician is recommended on an annual basis. This exam should not preclude additional follow-up of suspicious palpable abnormalities. Note on Carli scores and lifetime risk: 1. A Carli score greater than 3% is considered moderate risk. If this is the case, consider specialist referral to assess eligibility for a risk reducing agent. 2. If overall lifetime risk for the development of breast cancer is 20% or higher, the patient may qualify for future screening with alternating mammogram and breast MRI. Electronically signed and approved by: Jerry Bronson M.D. Radiologis
== END | disposition home or self-care (01) ==
LOC: RADMAMWWP 14:05
PROVIDERS: ATTEND Family Medicine
DX: Z12.31 Encounter for screening mammogram for malignant neoplasm of breast (principal); Z78.0 Asymptomatic menopausal state
CPT/HCPCS: 77063; 77067

== ENCOUNTER → 2023-07-07 | Outpatient (CLI) | payer MEDICARE, OTHER ==
--- NOTE | 2023-07-08 10:09 | MM ---
Reason for Exam: Additional evaluation requested from abnormal screening. Last screening mammogram was performed less than 1 month ago. Patient History: Menarche at age 9. Patient has no children. Postmenopausal. Risk Values: Carli 5 year model risk: 1.4%. NCI Lifetime model risk: 10.1%. Prior Study Comparison: 01/10/2021 Bilateral Screening Mammogram, [facility]. 06/10/2022 Bilateral MG screening mammo w CAD, [facility]. 07/03/2023 Bilateral MG 3D screening mammo w/cad, [facility]. Tissue Density: The breast tissue is heterogeneously dense. This may lower the sensitivity of mammography. Findings: Analyzed By CAD. There is a large area of pleomorphic calcifications in the right breast measuring 5.3 x 5.1 x 5.6cm in the upper outer quadrant. Malignancy until proven otherwise. Left breast is free of persistent mass. Overall Assessment: Highly suggestive of malignancy, BI-RAD 5 Management: Stereotactic Core Biopsy of the right breast. (2-3 sites) A clinical breast exam by your physician is recommended on an annual basis and results should be correlated with mammographic findings. This exam should not preclude additional follow-up of suspicious palpable abnormalities. Results were given to the patient verbally at the time of exam. Electronically signed and approved by: Jerry Bronson M.D. Radiologis
== END | disposition home or self-care (01) ==
LOC: RADMAMWWP 10:01
PROVIDERS: ATTEND Family Medicine
DX: R92.8 Other abnormal and inconclusive findings on diagnostic imaging of breast (principal); Z78.0 Asymptomatic menopausal state
CPT/HCPCS: 77066; G0279; 77062

== ENCOUNTER → 2023-07-23 | Day surgery (SDC) | payer MEDICARE, OTHER ==
--- NOTE | 2023-07-29 10:41 | MM ---
Risk Values: Carli 5 year model risk: 1.4%. NCI Lifetime model risk: 10.1%. Prior Study Comparison: 06/10/2022 Bilateral MG screening mammo w CAD, [facility]. 07/03/2023 Bilateral MG 3D screening mammo w/cad, [facility]. 07/07/2023 Bilateral MG 3D work up w/cad MANOJ, [facility]. Pathology Description: Approach: CC FA Needle Type: Eviva Cores: 7 Skin Nicks: 1 Gauge: 9 no problems- posterior bowtie-trimark. Pathology Description: Approach: CC FA Needle Type: Eviva Cores: 6 Skin Nicks: 1 Gauge: 9 no problems-anterior clip The procedure of stereotactic guided core biopsy was explained to the patient. Benefits, alternatives, and risks were discussed. An informed consent was then obtained. The shortness pathway for biopsy was chosen. Shortness pathway was a superior approach. I performed the localization followed by the remainder of the procedure. A vacuum assisted biopsy gun was used to obtain multiple core samples. Anterior and posterior sites were targeted. We note suspicious segmental calcifications spanning up to 7.5 cm on the CC view. Predominantly localized in the upper outer quadrant. The patient tolerated the procedure well without any immediate complication. The patient was kept in the radiology department for short stay after the procedure and then discharged home in stable condition. Targeted calcifications are identified in both specimen mammogram. Post biopsy mammogram shows the clip to appear in satisfactory position relative to the targeted area of concern on the preprocedure images. Note that due to patient's breast thickness, we were unable to obtain a farther posterior sampling. Impression: SUCCESSFUL, UNCOMPLICATED 2 SITE STEREOTACTIC/TOMOGRAPHIC GUIDED CORE BIOPSY OF SUSPICIOUS SEGMENTAL CALCIFICATIONS RIGHT BREAST SPANNING UP TO 7.5 CM. NOTE THAT WE WERE UNABLE TO SAMPLE THE FARTHEST POSTERIOR CALCIFICATIONS DUE TO PATIENT'S THICK BREAST LIMITING FARTHER POSTERIOR POSITIONING OF THE TARGET WINDOW. Pathology Results: Result: Malignant, Ductal carcinoma in situ, comedo type. A. 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 See Surgical Pathology Cancer Case Summary and Comment. B. 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 See Surgical Pathology Cancer Case Summary and Comment. Overall Assessment: Malignant Management: Surgical Consultation of the right breast. Electronically signed and approved by: Washington Smith M.D. Radiologist
== END ==
LOC: RADMAMWWP 09:43
PROVIDERS: ATTEND Family Medicine
DX: D05.11 Intraductal carcinoma in situ of right breast (principal)
CPT/HCPCS: 88305; 88342; 88341; 19081; 19082; A4648

== ENCOUNTER → 2023-09-11 | Outpatient (CLI) | payer MEDICARE, OTHER ==
--- NOTE | 2023-09-11 16:06 | P.PN ---
Subjective Progress Note Date: 09/11/23 Principal diagnosis: right breast extensive DCIS History of Present Illness H&P Date: Chief Complaint: DCIS right breast Aleshia is a 53 year old white female seen in consultation for Dr. Najera regarding a biopsy proven right breast DCIS. She had a bilateral screening mammogram on 07-03-23 followed by bilateral diagnostic mammograms on 07-07-23. Pleomorphic calcifications 5 by 5 by 4.7 cm seen in the UOQ of the right breast. Core biopsy on 07-23-23 + DCIS high grade. The patient did not feel any lumps masses or nodules of concern in either breast. This was a screening mammogram. She had not had any prior surgery or biopsies of her breast. She is not complaining of any new lumps masses or nodules of concern in either breast. She is not complaining of any nipple discharge or skin changes. She has not had any recent trauma or infection of the breast. She is not complaining of any pain in the breast. She tolerated the stereotactic core biopsy with no difficulty. Case presented at tumor board on 08-18-23 patient wishes to proceed with right mastectomy and SNB; hte patient does not want to see plastic surgeon and is not interested in reconstruction Patients sister called stating that she has a factor V Lieden deficiency and this was discussed with Dr. Dimas Alejo, he states no further testing for patient, just be sure that heparin given subq, pre-op. Caffeine: 4 cans of pop/day nicotine: none chocolate: occasional hormones: none BCP: never used Family History: sister: ? cervical cancer Hormonal History: menarche: 10 G1M1 at age 41 menopause: 51 Surgical History: spinal cord stiumlator for pain stero biopsy of the right breast bilateral carpel tunnel left thumb left elbow bilatearl cataract surgery bilateral vascular stents in legs ( 2019) Medical History: GERD planter fasciitis Back pain bulging disc 3 in neck and 4 in back (Dr. Anderson) depression COPD Social History: nicotine: none alcohol: none drugs:none - Constitutional Constitutional: Reports sweats - EENT Eyes: bilateral as per HPI Ears: deny: decreased hearing, tinnitus Ears, nose, mouth and throat: Denies headache, Denies sore throat - Breasts Breasts: bilateral: as per HPI - Cardiovascular Cardiovascular: Denies chest pain, Denies shortness of breath - Respiratory Comment: COPD Respiratory: Denies cough - Gastrointestinal Gastrointestinal: Reports as per HPI - Genitourinary (Female) Genitourinary: Denies dysuria, Denies hematuria - Menstruation Menstruation: Reports postmenopausal - Musculoskeletal Musculoskeletal: Reports myalgias - Integumentary Comment: none - Neurological Neurological: Reports numbness, Reports weakness - Psychiatric Psychiatric: Reports depression, Denies anxiety - Endocrine Endocrine: Denies fatigue, Denies weight change - Hematologic/Lymphatic Comment: aspirin - Allergic/Immunologic Allergic/Immunologic: Reports seasonal allergies Past Medical History Past Medical History: COPD, GERD/Reflux, Osteoarthritis (OA), Sleep Apnea/CPAP/BIPAP Additional Past Medical History / Comment(s): Back pain. Heel Spurs. USES CPAP. Bunions. History of Any Multi-Drug Resistant Organisms: None Reported Past Surgical History: Orthopedic Surgery Additional Past Surgical History / Comment(s): Pain Injection Procedures; Colonoscopy. Carpal tunnel bilat Angioplasty with bilat stents in legs Past Anesthesia/Blood Transfusion Reactions: No Reported Reaction Additional Past Anesthesia/Blood Transfusion Reaction / Comment(s): "Trouble getting tube in, tooth chipped." Past Psychological History: Depression Additional Psychological History / Comment(s): mild Smoking Status: Never smoker Past Alcohol Use History: None Reported Past Drug Use History: None Reported - Past Family History Mother Family Medical History: No Reported History Father Family Medical History: Pulmonary Embolus Medications and Allergies Home Medications Medication Instructions Recorded Confirmed Type Omeprazole 20 mg PO AC-BID 04/14/17 07/09/23 History Albuterol Inhaler [Ventolin Hfa 1 - 2 puff INHALATION Q6HR PRN 07/17/17 07/09/23 History Inhaler] Cholecalciferol [Vitamin D3 (25 2,000 unit PO DAILY 09/24/18 07/09/23 History Mcg = 1000 Iu)] Furosemide [Lasix] 40 mg PO DAILY 09/24/18 07/09/23 History Pregabalin [Lyrica] 75 mg PO BID 09/24/18 07/09/23 History buPROPion SR [Wellbutrin SR] 150 mg PO DAILY 09/22/19 07/09/23 History tiZANidine [Zanaflex] 4 mg PO HS 09/22/19 07/09/23 History Ibuprofen [Motrin] 800 mg PO TID PRN 11/16/19 07/09/23 History Aspirin 325 mg PO DAILY #90 tab 12/19/19 07/09/23 Rx Loratadine [Claritin] 10 mg PO DAILY 07/09/23 07/09/23 History Montelukast [Singulair] 10 mg PO DAILY 07/09/23 07/09/23 History traMADol HCL 50 mg PO BID 07/09/23 07/09/23 History Allergies Allergy/AdvReac Type Severity Reaction Status Date / Time No Known Allergies Allergy Verified 07/09/23 11:07 Objective - Constitutional General appearance: Present: cooperative - EENT Eyes: Present: EOMI ENT: Present: hearing grossly normal - Neck Neck: Present: normal ROM - Respiratory Respiratory: bilateral: CTA - Cardiovascular Rhythm: regular Heart sounds: normal: S1, S2 - Integumentary Integumentary: Present: normal turgor - Musculoskeletal Musculoskeletal: Present: gait normal - Psychiatric Psychiatric: Present: A&O x's 3, appropriate affect, intact judgment & insight - Additional findings Additional findings: Breast Exam: BRA: 40B Inspection: Bilateral grade 2 ptosis Palpation: Right breast multiple positional exam fullness 12:00 area right breast no other dominant masses or nodules of concern, dense breast, fibrocystic changes Right axilla: No adenopathy of concern Left breast: No dominant masses or nodules of concern on multiple positional exam, dense breast fibrocystic changes Left axilla: No adenopathy of concern Assessment and Plan Assessment: Impression: Right breast DCIS; extensive Plan: Presentation of case at tumor board done 1. Medical clearance 2. Clearance from Dr. Anderson regarding back pain; needs nerve stimulator turned off 3. genetic testing negative 08-29-23 4. right mastectomy and right sentinel node injection, right SNB, possible right axillary node dissection Discussed the surgical options which include mastectomy versus lumpectomy plus radiation therapy. At this time the patient would prefer a mastectomy without reconstruction. We discussed plastic surgery and at this time she does not want reconstruction. Risks and benefits of the procedure discussed with the patient. Risks include but are not limited to bleeding, infection, reaction to the anesthetic. They've talked about possibility of lymphedema and/or decreased sensation to the inner arm. The possibility of winged scapula was discussed. The patient understands and wishes to proceed. Additional CC's: Ellie Najera
== END ==
LOC: WWCWWP 15:32
PROVIDERS: ATTEND Surgery
DX: D05.11 Intraductal carcinoma in situ of right breast (principal); F32.A Depression, unspecified; G47.30 Sleep apnea, unspecified; J44.9 Chronic obstructive pulmonary disease, unspecified; K21.9 Gastro-esophageal reflux disease without esophagitis; M19.90 Unspecified osteoarthritis, unspecified site; Z79.899 Other long term (current) drug therapy; Z79.82 Long term (current) use of aspirin

== ENCOUNTER 2023-09-22 07:34 | Day surgery (SDC) | payer MEDICARE, OTHER ==
[2023-09-18 15:15] VITALS: BMI 39.0
[~2023-09-22 07:34] MED LIST changes: -ALPRAZolam 0.25 MG TAB PO PRN; -ASPIRIN 325 MG TAB PO STA; +DEXAMETHASONE SOD PHOSPHATE 4 MG/ML 1 ML VIAL IV ONE; +HEPARIN SODIUM,PORCINE/PF 5,000 UNIT/0.5 ML SYRINGE SQ PRN; +HYDROmorphone 0.5 MG/0.5 ML SYRINGE IVP PRN; -HYDROmorphone 1 MG/ML 1 ML SYRINGE IVP ONE; +LACTATED RINGERS 1,000 ML IV SCH; +LIDOCAINE 1% (10MG/ML) FOR IV START INTRADERMA PRN; -LIDOCAINE 1% INJ 10MG/ML (20 ML MDV) SQ ONE; -MIDAZOLAM 2 MG/2 ML VIAL IV ONE; +MIDAZOLAM 2 MG/2 ML VIAL IV PRN; -ONDANSETRON 4 MG/2 ML VIAL IVP STA; -ONDANSETRON 4 MG/2 ML VIAL ONE; -SODIUM CHLORIDE 0.9% 1,000 ML IV SCH; -SODIUM CHLORIDE 0.9% 1,000 ML in EMPTY BAG 1 BAG IV ONE
[2023-09-22] MEDS: ONDANSETRON 4 MG/2 ML VIAL IVP ONE ×2 (08:34→14:20)
[2023-09-22] MEDS ORDERED: WATER FOR INJECTION, STERILE 10 ML VIAL IV ONE (08:51)
[2023-09-22] MEDS ORDERED: MIDAZOLAM 2 MG/2 ML VIAL ONE (08:51)
[2023-09-22] MEDS ORDERED: ONDANSETRON 4 MG/2 ML VIAL ONE (08:51)
[2023-09-22] MEDS ORDERED: PROPOFOL 10 MG/ML 20 ML VIAL IV ONE (08:51)
[2023-09-22] MEDS ORDERED: LIDOCAINE 1% INJ 10MG/ML (20 ML MDV) ONE (08:51)
[2023-09-22] MEDS ORDERED: diphenhydrAMINE 50 MG/ML 1 ML VIAL ONE (08:51)
[2023-09-22] MEDS ORDERED: SUCCINYLCHOLINE CHLORIDE 200 MG/10 ML VIAL IV ONE (08:51)
[2023-09-22] MEDS ORDERED: fentaNYL (PF) 50 MCG/ML 2 ML AMP ONE (08:51)
--- NOTE | 2023-09-22 08:54 | NM ---
EXAMINATION TYPE: NM sentinel node injection DATE OF EXAM: 09/22/2023 COMPARISON: No comparisons CLINICAL INDICATION: Female, 53 years old with history of Breast cancer; TECHNIQUE AND FINDINGS: The procedure of sentinel lymph node injection was explained to the patient. The benefits, alternatives, and risks were discussed. An informed consent was then obtained. Overlying skin is cleaned with sterile alcohol. Following this, 511 uCi Tc99m Tilmanocept was inject ed in the upper outer aspect of the right nipple intradermally. The patient tolerated the procedure well without any immediate complication. The patient was kept in the radiology department for short stay after the procedure and then taken to surgery for surgical p rocedure what is presumed intraoperative gamma probe will be used for sentinel lymph node detection. IMPRESSION: Right breast radiotracer injection for sentinel node localization as above.
--- NOTE | 2023-09-22 09:05 | P.NAPBC ---
NAPBC Queries - NAPBC Queries Was patient's case review presented at [facility] tumor board? If no, comment.: Yes Was patient's pathology reviewed at [facility]? If no, comment.: Yes Was breast conservation surgery offered? If no, comment.: No (extensive DCIS discussed lumpectomy ) Was sentinel node biopsy offered? If no, comment.: Yes Was diagnosis confirmed by percutaneous core biopsy? If no, comment.: Yes Is patient mastectomy patient?: Yes Was a preop referral to reconstructive surgeon offered?: Yes Clinical Stage: stage 0 right breast
[2023-09-22] MEDS ORDERED: LIDOCAINE 1% INJ 10MG/ML (20 ML MDV) SQ ONE (09:31)
--- NOTE | 2023-09-22 10:59 | P.OP ---
Date of Procedure: 09/22/23 Preoperative Diagnosis: Extensive ductal carcinoma in situ right breast Postoperative Diagnosis: Same Procedure(s) Performed: Right breast mastectomy, sentinel node biopsy Anesthesia: TORIEA Surgeon: Precious Ames Estimated Blood Loss (ml): 20 IV fluids (ml): 400 Pathology: other (Right breast, right sentinel lymph node) Condition: stable Disposition: same day Indications for Procedure: Right breast extensive DCIS Operative Findings: Dense breast tissue Description of Procedure: Patient is a 53-year-old white female diagnosed with a extensive right breast DCIS. She she is undergoing a right breast mastectomy with a right sentinel node biopsy. In the preoperative area the radiotracer was injected in the right periareolar region. The patient was brought to the operative suite. Should be noted she has a neurostimulator in her back and this was turned off using a magnet prior to the case. Preoperative clearance was obtained from her neurologist. Following induction of anesthesia the right axilla was interrogated using the neoprobe. Radioactivity was identified. The right breast and axilla were prepped and draped in a sterile fashion. Superior and inferior skin flaps were developed down to the pectoralis muscle. The breast was brought from medial to lateral off the pectoralis muscle being careful to maintain hemostasis using the electrocautery device and harmonic sca lpel. In the area of the axilla the tissue was resected. Following resection of the specimen was well irrigated. Using the neoprobe and area of radioactivity was identified in the axilla. The lymph node was grasped using an Allis clamp. Wide dissection was performed. The 10 second count on the lymph node was 1776. The background count was 9. After assured that hemostasis was attained Surgicel and iodoform was placed. The vessel was ligated using a 3-0 Vicryl suture. A LEONARDA drain was placed. The deep tissues were brought together using interrupted 3-0 Vicryl suture. This was followed with a running 3-0 Vicryl subcutaneous suture. A 4-0 subcuticular Monocryl suture was then placed. The drain was secured using a nylon suture. Surgical glue was applied. The patient tolerated procedure in stable condition. All instrument and sponge counts were correct at the end of the case.
[2023-09-22] MEDS ORDERED: HYDROmorphone 1 MG/ML 1 ML SYRINGE IVP PRN (11:00)
[2023-09-22] MEDS ORDERED: NALOXONE 0.4 MG/ML 1 ML VIAL IV PRN (11:00)
[2023-09-22] MEDS ORDERED: ONDANSETRON 4 MG/2 ML VIAL IVP PRN (11:00)
[2023-09-22] MEDS: SODIUM CHLORIDE 0.9% 1,000 ML IV SCH ×2 (13:30→22:59)
[2023-09-22] MEDS: HYDROcodone/APAP 5-325MG 1 EACH TAB PO PRN ×2 (15:25→22:06)
[2023-09-22] MEDS: HEPARIN SODIUM,PORCINE 5,000 UNIT/ML 1 ML VIAL SQ SCH (15:59)
[2023-09-23] MEDS: HEPARIN SODIUM,PORCINE 5,000 UNIT/ML 1 ML VIAL SQ SCH ×2 (00:27→10:12)
[2023-09-23 00:47] VITALS: RESP 16
[2023-09-23] MEDS: HYDROcodone/APAP 5-325MG 1 EACH TAB PO PRN ×2 (05:04→12:21)
[2023-09-23] MEDS ORDERED: ALBUTEROL NEBULIZED 2.5 MG/3 ML INHALATION PRN (06:26)
[2023-09-23] MEDS ORDERED: PANTOPRAZOLE 40 MG TABLET PO SCH (07:30)
[2023-09-23 07:55] LABS: Basophils % (A) 0 %; Eosinophils # (A) 0.1 k/uL (0-0.7); Eosinophils % (A) 2 %; HCT 37.2 % (34.0-46.0); HGB 12.5 gm/dL (11.4-16.0); Lymphocytes # (A) 1.3 k/uL (1.0-4.8); Lymphocytes % (A) 20 %; MCH 29.4 pg (25.0-35.0); MCHC 33.5 g/dL (31.0-37.0); MCV 87.6 fL (80.0-100.0); Mean Platelet Volume 7.7; Monocytes # (A) 0.4 k/uL (0-1.0); Monocytes % (A) 7 %; Neutrophils # (A) 4.6 k/uL (1.3-7.7); Neutrophils % (A) 70 %; Platelet Count 162 k/uL (150-450); RBC 4.25 m/uL (3.80-5.40); RDW 13.2 % (11.5-15.5); WBC 6.7 k/uL (3.8-10.6)
[2023-09-23 08:27] VITALS: BP 100/65; PULSE 74; TEMP 98.2
[2023-09-23] MEDS ORDERED: LACTOBACILLUS ACIDOPHILUS/PECT 1 EACH CAPSULE PO SCH (09:00)
[2023-09-23] MEDS ORDERED: NON FORMULARY DRUG (Turmeric Root Extract [Turmeric] 500 MG Tablet) PO SCH (09:00)
[2023-09-23] MEDS ORDERED: CHOLECALCIFEROL 25 MCG (1000 IU) TABLET PO SCH (09:00)
[2023-09-23] MEDS ORDERED: PREGABALIN 75 MG CAP PO SCH (09:00)
--- NOTE | 2023-09-23 13:29 | P.CONS ---
History of Present Illness - History of Present Illness All encounter included exam done together with the bedside nurse This is a pleasant 53 years old female with multiple medical problems including COPD, GERD/Reflux, Osteoarthritis, Sleep Apnea/CPAP/BIPAP, hypothyroidism,Back pain. Heel Spurs. Uses CPAP Was admitted Current with right breast cancer. She is status post right breast mastectomy and sentinel node biopsy by Dr. Malloy, today is postop day #0 patient lying in bed comfortable, she has some postop pain which is expected about 5/10, no other complaints. She is breathing quietly. Oxygen saturation was checked at bedside currently is 95% on room air. She denies chest pain dyspnea. No change in urine or bowel habits. No fever. Patient is able to ambulate with no difficulty. Smoking alcohol or illicit drugs. Patient is hemodynamically stable, blood pressure 100/65. Her CBC is unremarkable with normal WBC, hemoglobin and platelet count. No other labs available currently. Review of Systems Review of systems CONSTITUTIONAL: No fever, no malaise, no fatigue. HEENT: No recent visual problems or hearing problems. Denied any sore throat. CARDIOVASCULAR: No orthopnea, PND, no palpitations, no syncope. PULMONARY: No shortness of breath, no cough, no hemoptysis. GASTROINTESTINAL: No diarrhea, no nausea, no vomiting, no abdominal pain. Normoactive bowel sounds. NEUROLOGICAL: No headaches, no weakness, no numbness. HEMATOLOGICAL: Denies any bleeding or petechiae. GENITOURINARY: Denies any burning micturition, frequency, or urgency. MUSCULOSKELETAL/RHEUMATOLOGICAL: Denies any joint pain, swelling, or any muscle pain. ENDOCRINE: Denies any polyuria or polydipsia. Past Medical History Past Medical History: Cancer, COPD, GERD/Reflux, Osteoarthritis (OA), Sleep Apnea/CPAP/BIPAP, Thyroid Disorder Additional Past Medical History / Comment(s): Current right breast cancer. Back pain. Heel Spurs. Uses CPAP. Bunions. Migraines rarely. History of Any Multi-Drug Resistant Organisms: None Reported Past Surgical History: Breast Surgery, Orthopedic Surgery Additional Past Surgical History / Comment(s): Pain injection procedures, colonoscopy, bilateral carpal tunnel, cubital tunnel left elbow, angioplasty with bilateral stents in legs, spinal stimulator placed, right breast biopsy. Past Anesthesia/Blood Transfusion Reactions: No Reported Reaction, Motion Sickness, Postoperative Nausea & Vomiting (PONV) Additional Past Anesthesia/Blood Transfusion Reaction / Comm: "Trouble getting tube in once, tooth got chipped, no problems since." Past Psychological History: Depression Additional Psychological History / Comment(s): Mild depression. Smoking Status: Never smoker Past Alcohol Use History: None Reported Past Drug Use History: None Reported - Past Family History Mother Family Medical History: No Reported History Father Family Medical History: Pulmonary Embolus Sister(s) Family Medical History: Pulmonary Embolus Medications and Allergies Home Medications Medication Instructions Recorded Confirmed Type Albuterol Inhaler [Ventolin Hfa 1 - 2 puff INHALATION Q6HR PRN 07/17/17 09/22/23 History Inhaler] Cholecalciferol [Vitamin D3 (25 2,000 unit PO DAILY 09/24/18 09/22/23 History Mcg = 1000 Iu)] Furosemide [Lasix] 40 mg PO DAILY PRN 09/24/18 09/22/23 History Pregabalin [Lyrica] 75 mg PO BID 09/24/18 09/22/23 History tiZANidine [Zanaflex] 4 mg PO HS 09/22/19 09/22/23 History Ibuprofen [Motrin] 800 mg PO TID PRN 11/16/19 09/22/23 History Aspirin 325 mg PO DAILY #90 tab 12/19/19 09/22/23 Rx Loratadine [Claritin] 10 mg PO HS 07/09/23 09/22/23 History Montelukast [Singulair] 10 mg PO HS 07/09/23 09/22/23 History traMADol HCL 50 mg PO BID 07/09/23 09/22/23 History L.acidoph,Paracasei, B.lactis 1 each PO DAILY 09/18/23 09/22/23 History [Probiotic] Levothyroxine Sodium 25 mcg PO 0500 09/18/23 09/22/23 History Omeprazole 40 mg PO HS 09/18/23 09/22/23 History Turmeric Root Extract [Turmeric] 1,000 mg PO DAILY 09/18/23 09/22/23 History HYDROcodone/APAP 5-325MG [[place] 5] 1 - 2 each PO Q6HR PRN #10 tab 09/22/23 Rx Allergies Allergy/AdvReac Type Severity Reaction Status Date / Time No Known Allergies Allergy Verified 09/22/23 08:09 Physical Exam Vitals: Vital Signs Temp Pulse Resp BP Pulse Ox 09/23/23 08:00 98.2 F 74 16 100/65 989 H 09/23/23 00:27 98.5 F 82 16 95/53 97 09/22/23 19:54 98.5 F 87 15 119/73 97 09/22/23 15:45 89 L 09/22/23 15:00 98.1 F 84 15 112/65 96 09/22/23 14:30 86 15 109/62 95 09/22/23 14:00 85 15 117/73 96 09/22/23 13:45 87 15 106/72 97 09/22/23 13:30 85 14 106/70 96 09/22/23 13:15 87 14 109/69 96 Intake and Output 09/22/23 09/23/23 09/23/23 22:59 06:59 14:59 Output Total 630 30 Balance -630 -30 Output: Drainage 30 30 Right Breast 30 30 Urine 600 Other: # Voids 1 3 -GENERAL: The patient is alert and oriented x3, not in any acute distress. obese HEENT: Pupils are round and equally reacting to light. EOMI. No scleral icterus. No conjunctival pallor. Normocephalic, atraumatic. No pharyngeal erythema. No thyromegaly. CARDIOVASCULAR: S1 and S2 present. No murmurs, rubs, or gallops. -PULMONARY: Chest is clear to auscultation, no wheezing , no crackles. Right side chest wall surgical wound with a dressing in place. Risks of exam is deferred to gynecological team ABDOMEN: Soft, nontender, nondistended, normoactive bowel sounds. No palpable organomegaly. MUSCULOSKELETAL: No joint swelling or deformity. EXTREMITIES: No cyanosis, clubbing, or pedal edema. NEUROLOGICAL: Gross neurological examination did not reveal any focal deficits. SKIN: No rashes. no petechiae. Results CBC & Chem 7: 09/23/23 07:30 Assessment and Plan Assessment: Right breast cancer status post right mastectomy and sentinel lymph node dissection COPD, no acute exacerbation History of GERD History of osteoarthritis Sleep apnea on CPAP at home Hypothyroidism, mild Chronic back pain Obesity with BMI of 39.4 Plan: Follow-up biopsy results Pain management patient was instructed to follow up with oncology service as an outpatient, patient knows Dr. Gee when he was following up with her father for blood disease clots. Patient informed she can follow up with him for her cancer management and she verbalized understanding and acceptance. Contact information is provided in the discharge instructions . Patient agreeable with this plan Labs and medication were reviewed.. Continue same treatment. Continue with symptomatic treatment. Resume home medication. Monitor labs and vitals. DVT and GI prophylaxis. Further recommendations as per clinical course of the patient DVT prophylaxis: Subcutaneous heparin GI Prophylaxis: Protonix Prognosis is guarded Thank you for consulting us we recommend patient follow up with PCP Dr. johansen in 1 week after discharge and patient was instructed with the same
--- NOTE | 2023-09-23 14:09 | P.PN ---
Subjective Progress Note Date: 09/23/23 Principal diagnosis: POD #1 right mastectomy and SNB The patient is POD#1 right mastectomy. She is doing well at this time. She is tolerating diet without difficulty. Objective - Vital Signs Vital signs: Vital Signs Temp 98.2 F 09/23/23 08:00 Pulse 74 09/23/23 08:00 Resp 16 09/23/23 08:00 BP 100/65 09/23/23 08:00 Pulse Ox 95 09/23/23 13:27 FiO2 Intake & Output 09/22/23 09/23/23 09/23/23 18:59 06:59 18:59 Intake Total 950 Output Total 620 60 Balance 330 -60 Weight 91.4 kg Intake: IV 950 Output: Drainage 60 Right Breast 60 Urine 600 Estimated Blood Loss 20 Other: # Voids 1 3 - Constitutional General appearance: Present: cooperative - EENT Eyes: Present: EOMI ENT: Present: hearing grossly normal - Neck Neck: Present: normal ROM - Respiratory Respiratory: bilateral: CTA - Cardiovascular Rhythm: regular - Integumentary Integumentary Comment(s): incision clean and dry LEONARDA output 30 cc serous - Musculoskeletal Musculoskeletal: Present: gait normal - Psychiatric Psychiatric: Present: A&O x's 3, appropriate affect, intact judgment & insight - Labs CBC & Chem 7: 09/23/23 07:30 Assessment and Plan Assessment: Impression: patient doing well Plan: discharge home teach drain care folow up with DR. Malloy 1 week
--- NOTE | 2023-09-23 14:11 | P.DS ---
Providers Attending physician: Precious Ames Consults: 09/22/23 11:02 Consult Physician Routine Consulting Provider: Felipe Suero Consult Reason/Comments: medical managment Do you want consulting provider notified?: Yes Primary care physician: Ellie Najera Plan - Discharge Summary Discharge Rx Participant: Yes New Discharge Prescriptions: New HYDROcodone/APAP 5-325MG [[place] 5] 1 - 2 each PO Q6HR PRN #10 tab PRN Reason: Pain No Action Albuterol Inhaler [Ventolin Hfa Inhaler] 1 - 2 puff INHALATION Q6HR PRN PRN Reason: Shortness Of Breath Pregabalin [Lyrica] 75 mg PO BID Furosemide [Lasix] 40 mg PO DAILY PRN PRN Reason: Edema Cholecalciferol [Vitamin D3 (25 Mcg = 1000 Iu)] 2,000 unit PO DAILY tiZANidine [Zanaflex] 4 mg PO HS Ibuprofen [Motrin] 800 mg PO TID PRN PRN Reason: Pain Aspirin 325 mg PO DAILY #90 tab Loratadine [Claritin] 10 mg PO HS traMADol HCL 50 mg PO BID Montelukast [Singulair] 10 mg PO HS Turmeric Root Extract [Turmeric] 1,000 mg PO DAILY Levothyroxine Sodium 25 mcg PO 0500 L.acidoph,Paracasei, B.lactis [Probiotic] 1 each PO DAILY Omeprazole 40 mg PO HS Discharge Medication List Albuterol Inhaler [Ventolin Hfa Inhaler] 1 - 2 puff INHALATION Q6HR PRN 07/17/17 [History] Cholecalciferol [Vitamin D3 (25 Mcg = 1000 Iu)] 2,000 unit PO DAILY 09/24/18 [History] Furosemide [Lasix] 40 mg PO DAILY PRN 09/24/18 [History] Pregabalin [Lyrica] 75 mg PO BID 09/24/18 [History] tiZANidine [Zanaflex] 4 mg PO HS 09/22/19 [History] Ibuprofen [Motrin] 800 mg PO TID PRN 11/16/19 [History] Aspirin 325 mg PO DAILY #90 tab 12/19/19 [Rx] Loratadine [Claritin] 10 mg PO HS 07/09/23 [History] Montelukast [Singulair] 10 mg PO HS 07/09/23 [History] traMADol HCL 50 mg PO BID 07/09/23 [History] L.acidoph,Paracasei, B.lactis [Probiotic] 1 each PO DAILY 09/18/23 [History] Levothyroxine Sodium 25 mcg PO 0500 09/18/23 [History] Omeprazole 40 mg PO HS 09/18/23 [History] Turmeric Root Extract [Turmeric] 1,000 mg PO DAILY 09/18/23 [History] HYDROcodone/APAP 5-325MG [[place] 5] 1 - 2 each PO Q6HR PRN #10 tab 09/22/23 [Rx] Follow up Appointment(s)/Referral(s): Edin Gee [STAFF PHYSICIAN] - 2 Weeks Precious Ames MD [STAFF PHYSICIAN] - 09/24/23 12:20 pm Ellie Najera MD [Primary Care Provider] - 1 Week Activity/Diet/Wound Care/Special Instructions: do not drive until seen by DR. Malloy may shower after 48 hours teach drain care Discharge Disposition: HOME SELF-CARE
[2023-09-23] MEDS ORDERED: LORATADINE 10 MG TAB PO SCH (21:00)
[2023-09-23] MEDS ORDERED: MONTELUKAST 10 MG TAB PO SCH (21:00)
[2023-09-23] MEDS ORDERED: tiZANidine 4 MG TAB PO SCH (21:00)
[2023-09-24] MEDS ORDERED: LEVOTHYROXINE 25 MCG TAB PO SCH (05:00)
== END 2023-09-23 14:19 | disposition home or self-care (01) ==
LOC: OR 07:34 → 4FBP 11:20 → OR 09-23 14:19
PROVIDERS: ATTEND Surgery
DX: D05.11 Intraductal carcinoma in situ of right breast (principal)
CPT/HCPCS: 38500; 85025; 38792; A9520; J1644 ×3; J1100; J0690; J1170

== ENCOUNTER → 2023-09-25 | Outpatient (CLI) | payer MEDICARE, OTHER ==
--- NOTE | 2023-09-25 13:19 | P.PN ---
Progress Note - Text Progress Note Date: 09/25/23 Aleshia is status post fright breast mastectomy on 09-22-23. She is doing well postoperative Examination: Lungs: Clear Heart: Regular rate and rhythm Incision: Clean and dry LEONARDA serous in nature approximately 30 mL Plan: Await pathology We will leave the LEONARDA drain until her next appointment Follow up in approximately 10 days CC: Dr. Marx
== END ==
LOC: WWCWWP 12:23
PROVIDERS: ATTEND Surgery
DX: Z90.11 Acquired absence of right breast and nipple (principal); Z79.82 Long term (current) use of aspirin

== ENCOUNTER → 2023-10-08 | Outpatient (CLI) | payer MEDICARE, OTHER ==
[2023-10-08 08:51] VITALS: BP 111/63; PULSE 74; RESP 17; TEMP 98.3
--- NOTE | 2023-10-08 09:06 | P.PN ---
Progress Note - Text Progress Note Date: 10/08/23 Aleshia is status post fright breast mastectomy on 09-22-23. She is doing well postoperative. 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 This was ER/SD positive and HER-2 negative. She is doing well post op. LEONARDA serous minimal. Note from medical oncology reviewed Examination: Lungs: Clear Heart: Regular rate and rhythm Incision: Clean and dry LEONARDA serous in nature Plan: follow up medical oncology remove LEONARDA drain oncotype follow up here in 4 months CC: Dr. Marx
== END ==
LOC: WWCWWP 08:08
PROVIDERS: ATTEND Surgery
DX: D05.11 Intraductal carcinoma in situ of right breast (principal); Z90.11 Acquired absence of right breast and nipple; Z17.0 Estrogen receptor positive status [ER+]

== ENCOUNTER → 2023-10-26 | Outpatient (CLI) | payer MEDICARE, OTHER ==
[2023-10-26 13:32] VITALS: BP 117/76; PULSE 82; RESP 18; TEMP 98.2
--- NOTE | 2023-10-26 14:35 | P.PN ---
Progress Note - Text Progress Note Date: 10/26/23 Aleshia is status post right breast mastectomy on 09-22-23. She is doing well postoperative. 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 This was ER/IL positive and HER-2 negative. She is doing well post op. She did develop a seroma at the mastectomy site. Note from medical oncology reviewed 10-22-23 The patient will be started on Cytoxan and Taxotere adjuvantly. Her Oncotype results showed a high recurrence score 51, with a greater than 15% benefit from chemotherapy. She will start this on November 12. Examination: Lungs: Clear Heart: Regular rate and rhythm Incision: Clean and dry Seroma right chest wall Plan: follow up medical oncology oncotype 51, adjuvant chemotherapy recommended Aspiration of seroma Follow-up in 2 weeks, to call sooner any questions or concerns The area of concern was prepped using alcohol. An 18-gauge needle and a 60 mL syringe was inserted into the area of fluctuance. 95 mL of serosanguineous fluid was removed with complete resolution of the seroma. The patient tolerated the procedure in stable condition. CC: Dr. Marx
== END ==
LOC: WWCWWP 13:00
PROVIDERS: ATTEND Surgery
DX: D05.11 Intraductal carcinoma in situ of right breast (principal); L76.82 Other postprocedural complications of skin and subcutaneous tissue; Z90.11 Acquired absence of right breast and nipple; Z17.0 Estrogen receptor positive status [ER+]

== ENCOUNTER → 2023-11-13 | Outpatient (CLI) | payer MEDICARE, OTHER ==
--- NOTE | 2023-11-13 12:53 | P.PN ---
Progress Note - Text Progress Note Date: 11/13/23 Aleshia is status post right breast mastectomy on 09-22-23. She is doing well postoperative. 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 This was ER/GA positive and HER-2 negative. She is doing well post op. She did develop a seroma at the mastectomy site, which seems to be resolving at this time. Note from medical oncology reviewed 10-22-23 on last visit The patient will be started on Cytoxan and Taxotere adjuvantly. Her Oncotype re sults showed a high recurrence score 51, with a greater than 15% benefit from chemotherapy. She will start this on November 12. Examination: Lungs: Clear Heart: Regular rate and rhythm Incision: Clean and dry Seroma right chest wall resolved; nothing to aspirate on today's examination Plan: follow up medical oncology oncotype 51, adjuvant chemotherapy recommended Aspiration of seroma as needed Follow-up in 4 months or sooner if any questions CC: Dr. Marx
[2023-11-13 13:58] VITALS: BP 123/73; PULSE 75; RESP 17; TEMP 97.8
== END ==
LOC: WWCWWP 12:35
PROVIDERS: ATTEND Surgery
DX: Z90.11 Acquired absence of right breast and nipple (principal)

== ENCOUNTER → 2023-12-24 | Outpatient (CLI) | payer MEDICARE, OTHER ==
--- NOTE | 2023-12-24 15:13 | US ---
EXAMINATION TYPE: US venous doppler duplex UE LT DATE OF EXAM: 12/24/2023 COMPARISON: NONE CLINICAL INDICATION: Female, 53 years old with history of M79.622 PAIN IN LEFT UPPER ARM; Failed port SIDE PERFORMED: Left Right Arm: NA Left Arm: Negative for DVT ? Unable to follow port from skin to insertion into vein. Catheter is seen within the IJV and at the distal subclavian. IMPRESSION: No DVT visualized within the left upper extremity. Injection port catheter noted within the left IJV and subclavian veins. Unable to adequately follow the catheter from the injection port site.
--- NOTE | 2023-12-24 16:51 | CT ---
EXAMINATION TYPE: CT angio chest DATE OF EXAM: 12/24/2023 COMPARISON: None HISTORY: 53-year-old female R06.02, SOB. R/O PE. TECHNIQUE: Contiguous axial scanning of the chest after the administration of 100ml mL of Isovue 370. Coronal/sagittal MIP reconstructions performed. CT DLP: 650mGycm. Automatic exposure control utilized for a dose reduction. FINDINGS: Left anterior chest wall injection port. Catheter is obscured at the level the left brachiocephalic v ein confluence. Postsurgical and post change right breast with mastectomy and platelike seroma measuring up to 1.3 cm thick and 11.1 cm wide right chest wall. Heart limits of normal in size without pericardial effusion. No reflux of contrast into the hepatic v eins. Aorta normal caliber with bovine configuration to the aortic arch. Mild thoracic lymphadenopathy by CT size criteria. There is borderline suboptimal contrast bolus but no definite pulmonary embolus seen. Prominent hazy and strandy atelectasis in the lower lungs. Otherwise, no consolidation or pleural eff usion. [id number] size hiatal hernia. Visualized upper abdomen otherwise shows moderate stool burden. Bones: Spinal stimulator ray centered on the mid thoracic spinal canal. No osseous destructive proces s. IMPRESSION: 1. Suboptimal contrast bolus but no definite pulmonary embolus seen. 2. Prominent stranding hazy bibasilar atelectasis. 3. Status post right mastectomy. There is a platelike seroma at the mastectomy site measuring up to 1 .3 cm thick and 11.1 cm wide. 4. Small to moderate-sized hiatal hernia.
== END | disposition home or self-care (01) ==
LOC: RADUSWWP 14:25
PROVIDERS: ATTEND Internal Medicine Hematology & Oncology
DX: J98.11 Atelectasis (principal); K44.9 Diaphragmatic hernia without obstruction or gangrene; C50.419 Malignant neoplasm of upper-outer quadrant of unspecified female breast; R06.02 Shortness of breath; M79.622 Pain in left upper arm; Z90.11 Acquired absence of right breast and nipple; Z95.828 Presence of other vascular implants and grafts
CPT/HCPCS: 93971; 71275; Q9967

== ENCOUNTER 2024-01-30 17:19 | Emergency (ER) | payer MEDICARE, OTHER ==
--- NOTE | 2024-01-30 18:44 | XR ---
EXAMINATION TYPE: XR chest 2V DATE OF EXAM: 01/30/2024 6:36 PM CLINICAL INDICATION:Female, 53 years old with history of Weakness; [facility] COMPARISON: Chest radiographs from TECHNIQUE: XR chest 2V Frontal and lateral views of the chest. FINDINGS: Lungs/Pleura: There is no evidence of pleural effusion, focal consolidation, or pneumothorax. Pulmonary vascularity: Unremarkable. Heart/mediastinum: Cardiomediastinal silhouette is unremarkable. Musculoskeletal: No acute osseous pathology. Right chest wall [id number] tip terminating in the superior vena cava. There are stimulator leads terminating over the spine. IMPRESSION: No acute cardiopulmonary disease/process.
[2024-01-30 18:54] VITALS: TEMP 97.9
[2024-01-30] MEDS: ACETAMINOPHEN TAB 500 MG TAB PO STA (18:59)
[2024-01-30] MEDS: IBUPROFEN 800 MG TAB PO STA (18:59)
[2024-01-30 19:46] LABS: Basophils # (A) 0.1 k/uL (0-0.2); Basophils % (A) 0 %; Eosinophils # (A) 0.1 k/uL (0-0.7); Eosinophils % (A) 1 %; HCT 34.7 % (34.0-46.0); HGB 11.5 gm/dL (11.4-16.0); Lymphocytes # (A) 0.7 k/uL (1.0-4.8); Lymphocytes % (A) 6 %; MCH 29.4 pg (25.0-35.0); MCHC 33.1 g/dL (31.0-37.0); MCV 88.8 fL (80.0-100.0); Mean Platelet Volume 8.3; Monocytes # (A) 0.5 k/uL (0-1.0); Monocytes % (A) 4 %; Neutrophils % (A) 87 %; Platelet Count 115 k/uL (150-450); RBC 3.91 m/uL (3.80-5.40); RDW 15.5 % (11.5-15.5); WBC 11.5 k/uL (3.8-10.6)
[2024-01-30 20:10] LABS: ALT 24 U/L (4-34); AST 26 U/L (14-36); African American GFR (CKD) 89 (>60 ml/min/1.73 sqM); Albumin 3.3 g/dL (3.5-5.0); Alkaline Phosphatase 131 U/L (38-126); Anion Gap 8 mmol/L; Blood Urea Nitrogen 18 mg/dL (7-17); Calcium 8.2 mg/dL (8.4-10.2); Carbon Dioxide 22 mmol/L (22-30); Chloride 109 mmol/L (98-107); Glucose 142 mg/dL (74-99); Magnesium 1.8 mg/dL (1.6-2.3); Non-African American GFR(CKD) 77 (>60 ml/min/1.73 sqM); Potassium 3.3 mmol/L (3.5-5.1); Sodium 139 mmol/L (137-145); Total Bilirubin 0.4 mg/dL (0.2-1.3); Total Protein 5.5 g/dL (6.3-8.2)
[2024-01-30] MEDS: SODIUM CHLORIDE 0.9% 1,000 ML IV STA (20:32)
[2024-01-30 20:47] LABS: Appearance,Urine Clear (Clear); Bilirubin,Urine Negative (Negative); Blood,Urine Negative (Negative); Color,Urine Colorless; Glucose,Urine (UA) 4+ (Negative); Ketones,Urine Negative (Negative); Leukocyte Esterase,Urine Negative (Negative); Nitrite,Urine Negative (Negative); PH, Urine 5.5 (5.0-8.0); Protein,Urine Negative (Negative); Specific Gravity,Urine 1.024 (1.001-1.035); Urobilinogen,Urine <2.0 mg/dL (<2.0)
[2024-01-30] MEDS: POTASSIUM CHLORIDE ER 20 MEQ TAB.ER PO STA (21:24)
--- NOTE | 2024-01-30 21:38 | ED ---
General Adult HPI - General Chief complaint: Upper Respiratory Infection Stated complaint: dizzy sore throat Time Seen by Provider: 01/30/24 18:05 Source: patient, RN notes reviewed, old records reviewed Mode of arrival: ambulatory Limitations: no limitations - History of Present Illness Initial comments: Is a 53-year-old female presents emergency department complaining of cough, congestion, body aches. Patient received chemo 1 week ago for breast cancer. No known fevers. No urinary complaints. No nausea, vomiting, diarrhea. No abdominal pain. No chest pain. Presents for further evaluation at this time. - Related Data Home Medications Medication Instructions Recorded Confirmed Albuterol Inhaler [Ventolin Hfa 1 - 2 puff INHALATION Q6HR PRN 07/17/17 11/13/23 Inhaler] Cholecalciferol [Vitamin D3 (25 2,000 unit PO DAILY 09/24/18 11/13/23 Mcg = 1000 Iu)] Furosemide [Lasix] 40 mg PO DAILY PRN 09/24/18 11/13/23 Pregabalin [Lyrica] 75 mg PO BID 09/24/18 11/13/23 tiZANidine [Zanaflex] 4 mg PO HS 09/22/19 11/13/23 Ibuprofen [Motrin] 800 mg PO TID PRN 11/16/19 11/13/23 Loratadine [Claritin] 10 mg PO HS 07/09/23 11/13/23 Montelukast [Singulair] 10 mg PO HS 07/09/23 11/13/23 traMADol HCL 50 mg PO BID 07/09/23 11/13/23 L.acidoph,Paracasei, B.lactis 1 each PO DAILY 09/18/23 11/13/23 [Probiotic] Levothyroxine Sodium 25 mcg PO 0500 09/18/23 11/13/23 Omeprazole 40 mg PO HS 09/18/23 11/13/23 Turmeric Root Extract [Turmeric] 1,000 mg PO DAILY 09/18/23 11/13/23 Previous Rx's Medication Instructions Recorded Aspirin 325 mg PO DAILY #90 tab 12/19/19 HYDROcodone/APAP 5-325MG [[place] 5] 1 - 2 each PO Q6HR PRN #10 tab 09/22/23 Allergies Allergy/AdvReac Type Severity Reaction Status Date / Time No Known Allergies Allergy Verified 11/13/23 13:40 Review of Systems ROS Statement: Those systems with pertinent positive or pertinent negative responses have been documented in the HPI. Review of Systems: CONST: Denies fever EYES: Denies blurry vision ENT: Endorses nasal congestion C/V: Denies Chest pain RESP: Denies shortness of breath GI: Denies abdominal pain : Denies dysuria SKIN: Denies rash. MSK: Endorses body aches NEURO: Denies headache ROS Other: All systems not noted in ROS Statement are negative. Past Medical History Past Medical History: Cancer, COPD, GERD/Reflux, Osteoarthritis (OA), Sleep Apnea/CPAP/BIPAP, Thyroid Disorder Additional Past Medical History / Comment(s): Current right breast cancer. Back pain. Heel Spurs. Uses CPAP. Bunions. Migraines rarely. History of Any Multi-Drug Resistant Organisms: None Reported Past Surgical History: Breast Surgery, Orthopedic Surgery Additional Past Surgical History / Comment(s): Pain injection procedures, colonoscopy, bilateral carpal tunnel, cubital tunnel left elbow, angioplasty with bilateral stents in legs, spinal stimulator placed, right breast biopsy. Past Anesthesia/Blood Transfusion Reactions: No Reported Reaction, Motion Sickness, Postoperative Nausea & Vomiting (PONV) Additional Past Anesthesia/Blood Transfusion Reaction / Comment(s): "Trouble getting tube in once, tooth got chipped, no problems since." Past Psychological History: Depression Smoking Status: Never smoker Past Alcohol Use History: None Reported Past Drug Use History: None Reported - Past Family History Mother Family Medical History: No Reported History Father Family Medical History: Pulmonary Embolus Sister(s) Family Medical History: Pulmonary Embolus General Exam - General Exam Comments Initial Comments: General: Appears in no acute distress. HEAD: Normal with no signs of head trauma. EYES: PERRLA, EOMI, conjunctiva normal, no discharge. ENT: Hearing grossly intact, normal oropharynx. RESPIRATORY: Clear breath sounds bilaterally. No wheezes, rales, or rhonchi. C/V: Regular rate and rhythm. S1 and S2 auscultated, no edema, peripheral pulses 2+ and intact throughout ABD: Abd is soft, nontender, nondistended EXT: Normal range of motion, no obvious deformity SKIN: No rashes or lesions observed on exposed skin. NEURO: Alert and oriented x 4. Limitations: no limitations Course Vital Signs 01/30/24 01/30/24 17:24 18:14 Temperature 98.1 F 97.9 F Pulse Rate 103 H Respiratory 20 Rate Blood Pressure 128/74 O2 Sat by Pulse 98 Oximetry Medical Decision Making - Medical Decision Making Was pt. sent in by a medical professional or institution (MED Casiano, UNIVERSITY RELATIONS DIRECTOR, urgent c are, hospital, or long-term...) When possible be specific @ -[No] Did you speak to anyone other than the patient for history (EMS, parent, family, police, friend...)? What history was obtained from this source @ -[No] Did you review nursing and triage notes (agree or disagree)? Why? @ -[I reviewed and agree with nursing and triage notes] Were old charts reviewed (outside hosp., previous admission, EMS record, old EKG, old radiological studies, urgent care reports/EKG's, long-term records)? Report findings @ -Old charts reviewed Differential Diagnosis (chest pain, altered mental status, abdominal pain women, abdominal pain men, vaginal bleeding, weakness, fever, dyspnea, syncope, headache, dizziness, GI bleed, back pain, seizure, CVA, palpatations, mental health, musculoskeletal)? @ -COVID, flu, RSV, neutropenic fever, URI. This list is not all inclusive. EKG interpreted by me (3pts min.). @ -[As above] X-rays interpreted by me (1pt min.). @ -Chest x-ray reveals no obvious acute cardiopulmonary process. CT interpreted by me (1pt min.). @ -[None done] U/S interpreted by me (1pt. min.). @ -[None done] What testing was considered but not performed or refused? (CT, X-rays, U/S, labs)? Why? @ -[None] What meds were considered but not given or refused? Why? @ -[None] Did you discuss the management of the patient with other professionals (professionals i.e. MED Casiano, UNIVERSITY RELATIONS DIRECTOR, lab, RT, psych nurse, psychiatric social worker supervisor, flavoring maker, teacher, amphibious operations officer, ed case manager)? Give summary @ -[No] Was smoking cessation discussed for >3mins.? @ -[No] Was critical care preformed (if so, how long)? @ -[No] Were there social determinants of health that impacted care today? How? (Ho melessness, low income, unemployed, alcoholism, drug addiction, transportation, low edu. Level, literacy, decrease access to med. care, fpc, rehab)? @ -[No] Was there de-escalation of care discussed even if they declined (Discuss DNR or withdrawal of care, Hospice)? DNR status @ -[No] What co-morbidities impacted this encounter? (DM, HTN, Smoking, COPD, CAD, Cancer, CVA, ARF, Chemo, Hep., AIDS, mental health diagnosis, sleep apnea, morbid obesity)? @ -Breast cancer currently on chemotherapy. Has right chest port. Was patient admitted / discharged? Hospital course, mention meds given and r oute, prescriptions, significant lab abnormalities, going to OR and other pertinent info. @ -Based on patient's presentation and physical exam, presents with upper respiratory symptoms and generalized bodyaches for the last few days. Is a chemo patient. Presents for further evaluation at this time. Vital signs remarkable for no fever. No hypoxia. Exam relatively unremarkable. Patient be symptomatically treat with IV fluids, as well as Tylenol Motrin. She was in agreement this plan. Vital signs are within acceptable limits. EKG showed no signs of acute ischemia. Laboratory studies show a mild leukocytosis of 11.5, mild hypokalemia of 3.3 which was replenished. Remainder the workup unremarkable. This includes negative COVID, flu, RSV, strep. Chest x-ray unremarkable. On reevaluation, patient is feeling improved. Vital signs remained within acceptable limits. I believe is safe for the patient be discharged home at this time. She was in agreement this plan. Has close follow-up with her primary care, as well as oncologist this week. She was in agreement this plan. I instructed the patient to follow up with their PCP in the next 1-3 days. I explained that the patient should return to the emergency department if they experience any worsening symptoms. Strict return precautions were discussed with the patient. The patient expressed understanding of these instructions. I answered all questions that the patient had. The patient was discharged home in [good] condition with their prescriptions and follow up information. Undiagnosed new problem with uncertain prognosis? @ -[No] Drug Therapy requiring intensive monitoring for toxicity (Heparin, Nitro, Insulin, Cardizem)? @ -[No] Were any procedures done? @ -[No] Diagnosis/symptom? @ -URI, hypokalemia Acute, or Chronic, or Acute on Chronic? @ -Acute Uncomplicated (without systemic symptoms) or Complicated (systemic symptoms)? @ -Complicated Side effects of treatment? @ -[No] Exacerbation, Progression, or Severe Exacerbation? @ -[No] Poses a threat to life or bodily function? How? (Chest pain, [place], [place], pneumonia, PE, COPD, DKA, ARF, appy, cholecystitis, CVA, Diverticulitis, Homicidal, Suicidal, threat to staff... and all critical care pts) @ -Unlikely - Lab Data Result diagrams: 01/30/24 19:24 01/30/24 19:24 Lab Results 01/30/24 01/30/24 01/30/24 Range/Units 19:24 19:24 19:24 WBC 11.5 H (3.8-10.6) k/uL RBC 3.91 (3.80-5.40) m/uL Hgb 11.5 (11.4-16.0) gm/dL Hct 34.7 (34.0-46.0) % MCV 88.8 (80.0-100.0) fL MCH 29.4 (25.0-35.0) pg MCHC 33.1 (31.0-37.0) g/dL RDW 15.5 (11.5-15.5) % Plt Count 115 L (150-450) k/uL MPV 8.3 Neutrophils % 87 % Lymphocytes % 6 % Monocytes % 4 % Eosinophils % 1 % Basophils % 0 % Neutrophils # 10.0 H (1.3-7.7) k/uL Lymphocytes # 0.7 L (1.0-4.8) k/uL Monocytes # 0.5 (0-1.0) k/uL Eosinophils # 0.1 (0-0.7) k/uL Basophils # 0.1 (0-0.2) k/uL Sodium 139 (137-145) mmol/L Potassium 3.3 L (3.5-5.1) mmol/L Chloride 109 H (98-107) mmol/L Carbon Dioxide 22 (22-30) mmol/L Anion Gap 8 mmol/L BUN 18 H (7-17) mg/dL Creatinine 0.86 (0.52-1.04) mg/dL Est GFR (CKD-EPI)AfAm 89 (>60 ml/min/1.73 sqM) Est GFR (CKD-EPI)NonAf 77 (>60 ml/min/1.73 sqM) Glucose 142 H (74-99) mg/dL Plasma Lactic Acid Gwyn (0.7-2.0) mmol/L Calcium 8.2 L (8.4-10.2) mg/dL Magnesium 1.8 (1.6-2.3) mg/dL Total Bilirubin 0.4 (0.2-1.3) mg/dL AST 26 (14-36) U/L ALT 24 (4-34) U/L Alkaline Phosphatase 131 H (38-126) U/L Total Protein 5.5 L (6.3-8.2) g/dL Albumin 3.3 L (3.5-5.0) g/dL Urine Color Colorless Urine Appearance Clear (Clear) Urine pH 5.5 (5.0-8.0) Ur Specific Llewellyn 1.024 (1.001-1.035) Urine Protein Negative (Negative) Urine Glucose (UA) 4+ H (Negative) Urine Ketones Negative (Negative) Urine Blood Negative (Negative) Urine Nitrite Negative (Negative) Urine Bilirubin Negative (Negative) Urine Urobilinogen <2.0 (<2.0) mg/dL Ur Leukocyte Esterase Negative (Negative) Influenza Type A (PCR) (Not Detectd) Influenza Type B (PCR) (Not Detectd) RSV (PCR) (Not Detectd) SARS-CoV-2 (PCR) (Not Detectd) Group A Strep (PCR) (Not Detectd) 01/30/24 01/30/24 01/30/24 Range/Units 19:24 19:24 19:24 WBC (3.8-10.6) k/uL RBC (3.80-5.40) m/uL Hgb (11.4-16.0) gm/dL Hct (34.0-46.0) % MCV (80.0-100.0) fL MCH (25.0-35.0) pg MCHC (31.0-37.0) g/dL RDW (11.5-15.5) % Plt Count (150-450) k/uL MPV Neutrophils % % Lymphocytes % % Monocytes % % Eosinophils % % Basophils % % Neutrophils # (1.3-7.7) k/uL Lymphocytes # (1.0-4.8) k/uL Monocytes # (0-1.0) k/uL Eosinophils # (0-0.7) k/uL Basophils # (0-0.2) k/uL Sodium (137-145) mmol/L Potassium (3.5-5.1) mmol/L Chloride (98-107) mmol/L Carbon Dioxide (22-30) mmol/L Anion Gap mmol/L BUN (7-17) mg/dL Creatinine (0.52-1.04) mg/dL Est GFR (CKD-EPI)AfAm (>60 ml/min/1.73 sqM) Est GFR (CKD-EPI)NonAf (>60 ml/min/1.73 sqM) Glucose (74-99) mg/dL Plasma Lactic Acid Gwyn 0.7 (0.7-2.0) mmol/L Calcium (8.4-10.2) mg/dL Magnesium (1.6-2.3) mg/dL Total Bilirubin (0.2-1.3) mg/dL AST (14-36) U/L ALT (4-34) U/L Alkaline Phosphatase (38-126) U/L Total Protein (6.3-8.2) g/dL Albumin (3.5-5.0) g/dL Urine Color Urine Appearance (Clear) Urine pH (5.0-8.0) Ur Specific Llewellyn (1.001-1.035) Urine Protein (Negative) Urine Glucose (UA) (Negative) Urine Ketones (Negative) Urine Blood (Negative) Urine Nitrite (Negative) Urine Bilirubin (Negative) Urine Urobilinogen (<2.0) mg/dL Ur Leukocyte Esterase (Negative) Influenza Type A (PCR) Not Detected (Not Detectd) Influenza Type B (PCR) Not Detected (Not Detectd) RSV (PCR) Not Detected (Not Detectd) SARS-CoV-2 (PCR) Not Detected (Not Detectd) Group A Strep (PCR) NOT DETECTED (Not Detectd) - EKG Data -: EKG Interpreted by Me EKG Comments: 12-lead Electrocardiogram Interpretation Note EKG was reviewed and interpreted by myself. 12-lead ECG performed at 1849 is interpreted by me as revealing normal sinus rhythm at a rate of 84 beats per minute. Melbeta is normal. SC interval is 142 ms, QRS duration is 85 ms, QTc is 386 ms.. There were no ST or T wave abnormalities to suggest myocardial ischemia or injury. R wave progression across the precordium was satisfactory. By my interpretation this EKG is non-diagnostic for acute ischemia. Disposition Clinical Impression: URI (upper respiratory infection), Hypokalemia Disposition: HOME SELF-CARE Condition: Good Instructions (If sedation given, give patient instructions): Upper Respiratory Infection (ED) Is patient prescribed a controlled substance at d/c from ED?: No Referrals: Ellie Najera MD [Primary Care Provider] - 1-2 days Time of Disposition: 21:38
[2024-01-30] MEDS: dexAMETHasone 4 MG TAB PO STA (21:49)
[2024-01-30 22:16] VITALS: BP 128/72; PULSE 91; RESP 18
== END 2024-01-30 22:23 | disposition home or self-care (01) ==
LOC: EC 17:19
DX: J06.9 Acute upper respiratory infection, unspecified (principal); E87.6 Hypokalemia; Z85.3 Personal history of malignant neoplasm of breast
CPT/HCPCS: 36415; 93005; 87651; 80053; 83605; 83735; 85025; 81003; 87040; 87636; 71046; 99285; 96374; 96361; J8540; J1642

== ENCOUNTER → 2024-02-11 | Outpatient (CLI) | payer MEDICARE, OTHER ==
--- NOTE | 2024-02-11 10:56 | P.PN ---
Subjective Progress Note Date: 02/11/24 Principal diagnosis: right breast extensive DCIS 02-11-24 Chief Complaint: Right breast [id number] invasive ductal cancer 2022; extensive DCIS Aleshia is a 53 year old white female seen in consultation for Dr. Marx regarding a biopsy proven right breast DCIS. She had a bilateral screening mammogram on 07-03-23 followed by bilateral diagnostic mammograms on 07-07-23. Pleomorphic calcifications 5 by 5 by 4.7 cm seen in the UOQ of the right breast. Core biopsy on 07-23-23 + DCIS high grade. The patient did not feel any lumps masses or nodules of concern in either breast. This was a screening mammogram. She had not had any prior surgery or biopsies of her breast. She is not complaining of any new lumps masses or nodules of concern in either breast. She is not complaining of any nipple discharge or skin changes. She has not had any recent trauma or infection of the breast. She is not complaining of any pain in the breast. She tolerated the stereotactic core biopsy with no difficulty. Case presented at tumor board on 08-18-23 patient wished to proceed with right mastectomy and SNB; the patient does not want to see plastic surgeon and is not interested in reconstruction Patients sister called stating that she has a factor V Lieden deficiency and this was discussed with Dr. Dimas Alejo, he states no further testing for patient, just be sure that heparin given subq, pre-op. The patient on 09-22-23 underwent a right mastectomy ad SNB, all nodes were (-), there was a 1.5 cm invasive ductal cancer Her oncotype was 51 and the patient underwent taxotere and cytoxin adjuvant chemotherapy this was completed in Dec [address] Gee reviewed 02-05-24; probable anestrazole and appointment with radiation oncology Caffeine: 4 cans of pop/day nicotine: none chocolate: occasional hormones: none BCP: never used Family History: sister: ? cervical cancer Hormonal History: menarche: 10 G1M1 at age 41 menopause: 51 Surgical History: spinal cord stiumlator for pain stero biopsy of the right breast bilateral carpel tunnel left thumb left elbow bilatearl cataract surgery bilateral vascular stents in legs ( 2019) right breast mastectomy and SNB; 09-22-23 port left chest which was placed on right chest left port removed Medical History: GERD planter fasciitis Back pain bulging disc 3 in neck and 4 in back (Dr. Anderson) depression COPD Social History: nicotine: none alcohol: none drugs:none - Constitutional Constitutional: Reports sweats - EENT Eyes: bilateral as per HPI Ears: deny: decreased hearing, tinnitus Ears, nose, mouth and throat: Denies headache, Denies sore throat - Breasts Breasts: bilateral: as per HPI - Cardiovascular Cardiovascular: Denies chest pain, Denies shortness of breath - Respiratory Comment: COPD Respiratory: Denies cough - Gastrointestinal Gastrointestinal: Reports as per HPI - Genitourinary (Female) Genitourinary: Denies dysuria, Denies hematuria - Menstruation Menstruation: Reports postmenopausal - Musculoskeletal Musculoskeletal: Reports myalgias - Integumentary Comment: none - Neurological Neurological: Reports numbness, Reports weakness - Psychiatric Psychiatric: Reports depression, Denies anxiety - Endocrine Endocrine: Denies fatigue, Denies weight change - Hematologic/Lymphatic Comment: aspirin - Allergic/Immunologic Allergic/Immunologic: Reports seasonal allergies Past Medical History Past Medical History: COPD, GERD/Reflux, Osteoarthritis (OA), Sleep Apnea/CPAP/BIPAP Additional Past Medical History / Comment(s): Back pain. Heel Spurs. USES CPAP. Bunions. History of Any Multi-Drug Resistant Organisms: None Reported Past Surgical History: Orthopedic Surgery Additional Past Surgical History / Comment(s): Pain Injection Procedures; Colonoscopy. Carpal tunnel bilat Angioplasty with bilat stents in legs Past Anesthesia/Blood Transfusion Reactions: No Reported Reaction Additional Past Anesthesia/Blood Transfusion Reaction / Comment(s): "Trouble getting tube in, tooth chipped." Past Psychological History: Depression Additional Psychological History / Comment(s): mild Smoking Status: Never smoker Past Alcohol Use History: None Reported Past Drug Use History: None Reported - Past Family History Mother Family Medical History: No Reported History Father Family Medical History: Pulmonary Embolus Medications and Allergies Home Medications Medication Instructions Recorded Confirmed Type Omeprazole 20 mg PO AC-BID 04/14/17 07/09/23 History Albuterol Inhaler [Ventolin Hfa 1 - 2 puff INHALATION Q6HR PRN 07/17/17 07/09/23 History Inhaler] Cholecalciferol [Vitamin D3 (25 2,000 unit PO DAILY 09/24/18 07/09/23 History Mcg = 1000 Iu)] Furosemide [Lasix] 40 mg PO DAILY 09/24/18 07/09/23 History Pregabalin [Lyrica] 75 mg PO BID 09/24/18 07/09/23 History buPROPion SR [Wellbutrin SR] 150 mg PO DAILY 09/22/19 07/09/23 History tiZANidine [Zanaflex] 4 mg PO HS 09/22/19 07/09/23 History Ibuprofen [Motrin] 800 mg PO TID PRN 11/16/19 07/09/23 History Aspirin 325 mg PO DAILY #90 tab 12/19/19 07/09/23 Rx Loratadine [Claritin] 10 mg PO DAILY 07/09/23 07/09/23 History Montelukast [Singulair] 10 mg PO DAILY 07/09/23 07/09/23 History traMADol HCL 50 mg PO BID 07/09/23 07/09/23 History Allergies Allergy/AdvReac Type Severity Reaction Status Date / Time No Known Allergies Allergy Verified 07/09/23 11:07 Objective - Vital Signs Vital signs: Vital Signs Temp 97.8 F 02/11/24 10:24 Pulse 82 02/11/24 10:24 Resp 17 02/11/24 10:24 BP 106/72 02/11/24 10:24 Pulse Ox 98 02/11/24 10:24 FiO2 Intake & Output 02/10/24 02/11/24 02/11/24 18:59 06:59 18:59 Weight 92.986 kg - Constitutional General appearance: Present: cooperative - EENT Eyes: Present: EOMI ENT: Present: hearing grossly normal - Neck Neck: Present: normal ROM - Respiratory Respiratory: bilateral: CTA - Cardiovascular Rhythm: regular Heart sounds: normal: S1, S2 - Gastrointestinal General gastrointestinal: Present: soft - Integumentary Integumentary: Present: normal turgor - Musculoskeletal Musculoskeletal: Present: gait normal - Psychiatric Psychiatric: Present: A&O x's 3, appropriate affect, intact judgment & insight - Additional findings Additional findings: Breast Exam: BRA: 40B Inspection: right mastectomy, left breast grade 2 ptosis Palpation: Right chest wall no lesions of concern, port in place Right axilla: No adenopathy of concern Left breast: No dominant masses or nodules of concern on multiple positional exam, dense breast fibrocystic changes Left axilla: No adenopathy of concern Assessment and Plan Assessment: Impression: GERD planter fasciitis Back pain bulging disc 3 in neck and 4 in back (Dr. Anderson) depression COPD right breast invasive ductal cancer stage 1 Plan: left breast mammogram June 2024 with appointment at that time appointment radiation oncology continue to follow medical oncology CC: Dania
[2024-02-11 10:59] VITALS: BP 106/72; PULSE 82; RESP 17; TEMP 97.8
== END ==
LOC: WWCWWP 09:55
PROVIDERS: ATTEND Surgery
DX: R92.1 Mammographic calcification found on diagnostic imaging of breast (principal); D05.11 Intraductal carcinoma in situ of right breast; K21.9 Gastro-esophageal reflux disease without esophagitis; J44.9 Chronic obstructive pulmonary disease, unspecified; F32.A Depression, unspecified; M50.30 Other cervical disc degeneration, unspecified cervical region; M72.2 Plantar fascial fibromatosis; Z90.11 Acquired absence of right breast and nipple; Z79.899 Other long term (current) drug therapy

== ENCOUNTER → 2024-02-12 | Outpatient (CLI) | payer MEDICARE, OTHER ==
--- NOTE | 2024-02-12 11:18 | BD ---
EXAMINATION TYPE: Axial Bone Density DATE OF EXAM: 02/12/2024 CLINICAL HISTORY: 53 years old Female. ICD-10 CODE: M85.88 DISORDER OF BONE Height: 60.3 Weight: 206 FRAX RISK QUESTIONS: Glucocorticoids (More than 3mos): yes, for asthma, copd provoked by the chemo and breast cancer..sta aida patient (Ex: prednisone, prednisolone, methylprednisolone, dexamethasone, and hydrocortisone). 3. Menopause before 45: no, at 49 yrs RISK FACTORS HISTORY OF: Right breast cancer, 2022, with chemo, osteoarthritis Surgery to Spine hx of pain stimulator, lower left buttock MEDICATIONS: hx of chemo for rt breast cancer, port on the right side Thyroid Medications: synthroid product, for about 9 months EXAM MEASUREMENTS: Bone mineral densitometry was performed using the [employer] System. Bone mineral density as measured about the Lumbar spine is: ----- L1-L4(G/cm2): 1.272 T Score Values are as follows: ----- L1: 0.5 ----- L2: 1.2 ----- L3: 0.7 ----- L4: 0.6 ----- L1-L4: 0.8 Z Score Values are as follows: ----- L1: 0.4 ----- L2: 1.1 ----- L3: 0.5 ----- L4: 0.4 ----- L1-L4: 0.6 Bone mineral density is a baseline study for this patient. Bone mineral density about the R hip (g/cm2): 1.005 Bone mineral density about the L hip (g/cm2): 1.023 T Score values are as follows: -----R Neck: -0.2 -----L Neck: -0.9 -----R Total: 0.0 -----L Total: 0.0 Z Score values are as follows: -----R Neck: 0.2 -----L Neck: -0.5 -----R Total: -0.1 -----L Total: 0.1 Bone mineral density is her baseline today. FRAX%s: The graph provided illustrates a 8.0% chance for a major osteoporotic fx and a 0.4% chance fo r the hips probability for fx in 10 years time. IMPRESSION: Normal (Values between +1 and -1 indicate normal bone mass). Consider repeating this study in 5 year s or sooner if there is some new clinical indication. NOTE: T-SCORE=SD OF THE YOUNG ADULT MEAN.
== END | disposition home or self-care (01) ==
LOC: RADBDWWP 10:05
PROVIDERS: ATTEND Internal Medicine Hematology & Oncology
DX: C50.419 Malignant neoplasm of upper-outer quadrant of unspecified female breast (principal); M85.88 Other specified disorders of bone density and structure, other site; J44.9 Chronic obstructive pulmonary disease, unspecified; Z71.3 Dietary counseling and surveillance
CPT/HCPCS: 77080

== ENCOUNTER → 2024-04-11 | Outpatient (CLI) | payer MEDICARE, OTHER ==
[2024-04-11 16:01] LABS: Thyroid Peroxidase Antibodies <9.0 U/mL (0.0-33.0)
[2024-04-11 16:03] LABS: ALT 20 U/L (8-44); AST 23 U/L (13-35); Albumin 4.3 g/dL (3.8-4.9); Albumin/Globulin Ratio 2.05 Ratio (1.60-3.17); Alkaline Phosphatase 106 U/L (41-126); BUN/Creat Ratio 24.22 Ratio (12.00-20.00); Blood Urea Nitrogen 21.8 mg/dL (9.0-27.0); Calcium 9.5 mg/dL (8.7-10.3); Carbon Dioxide 21.6 mmol/L (21.6-31.8); Chloride 108 mmol/L (96-109); Chol/HDL Ratio 4.32 Ratio; Globulin 2.1 g/dL (1.6-3.3); Glucose 97 mg/dL (70-110); LDL Cholesterol,Calculated 103.3 mg/dL (0.0-131.0); Potassium 4.3 mmol/L (3.5-5.5); Sodium 143 mmol/L (135-145); Total Bilirubin 0.3 mg/dL (0.3-1.2); Total Protein 6.4 g/dL (6.2-8.2)
== END | disposition home or self-care (01) ==
LOC: LABWHC1 10:42
PROVIDERS: ATTEND Family Medicine
DX: R94.6 Abnormal results of thyroid function studies (principal); Z90.11 Acquired absence of right breast and nipple
CPT/HCPCS: 36415; 80053; 80061; 83036; 84443; 86376; 86800

== ENCOUNTER → 2024-08-04 | Outpatient (CLI) | payer MEDICARE, OTHER ==
--- NOTE | 2024-08-05 16:10 | MM ---
Reason for Exam: Hx of breast cancer, mastectomy. Last mammogram was performed 1 year(s) and 1 month(s) ago. Patient History: Menarche at age 9. Patient has no children. Postmenopausal. Breast cancer, right, age 53. 09/24/2023, Mastectomy on the Right side. 07/23/2023, MG stereo VAD BX addl RT on the Right side. 07/23/2023, Malignant MG stereo VAD BX RT on the right side. 2022, Chemotherapy. Prior Study Comparison: 06/10/2022 Bilateral MG screening mammo w CAD, [facility]. 07/03/2023 Bilateral MG 3D screening mammo w/cad, [facility]. 07/07/2023 Bilateral MG 3D work up w/cad [facility], [facility]. Tissue Density: Left: The breasts are heterogeneously dense, which may obscure small masses. Findings: Analyzed By CAD. Pattern appears stable. No persistent suspicious density in the left breast is evident. No suspicious groups of microcalcifications, spiculated or lobular masses, architectural distortion or other secondary signs of malignancy are mammographically apparent. Overall Assessment: Benign, BI-RAD 2 Management: Screening Mammogram of both breasts in 1 year. A negative mammogram report should not preclude additional follow up of suspicious palpable abnormalities. Patient should continue monthly self breast exam. A clinical breast exam by your physician is recommended on an annual basis and results should be correlated with mammographic findings. Note on Carli scores and lifetime risk: 1. A Carli score greater than 3% is considered moderate risk. If this is the case, consider specialist referral to assess eligibility for a risk reducing agent. 2. If overall lifetime risk for the development of breast cancer is 20% or higher, the patient may qualify for future screening with alternating mammogram and breast MRI. [facility], , 08/05/2024 4:08 PM. Electronically signed and approved by: Christian Stoddard D.O. Radiologis
== END | disposition home or self-care (01) ==
LOC: RADMAMWWP 14:29
PROVIDERS: ATTEND Surgery
CPT/HCPCS: 77061; 77065

== ENCOUNTER → 2024-08-11 | Outpatient (CLI) | payer MEDICARE, OTHER ==
[2024-08-11 15:25] VITALS: BP 128/79; PULSE 94; RESP 16; TEMP 98.3
--- NOTE | 2024-08-11 15:47 | P.PN ---
Subjective Progress Note Date: 08/11/24 Principal diagnosis: DCIS right breast 08-11-24 Principal diagnosis: right breast extensive DCIS 02-11-24 Chief Complaint: Right breast [id number] invasive ductal cancer 2022; extensive DCIS Aleshia is a 53 year old white female seen in consultation for Dr. Marx regarding a biopsy proven right breast DCIS. She had a bilateral screening mammogram on 07-03-23 followed by bilateral diagnostic mammograms on . Pleomorphic calcifications 5 by 5 by 4.7 cm seen in the UOQ of the right breast. Core biopsy on 07-23-23 + DCIS high grade. The patient did not feel any lumps masses or nodules of concern in either breast. This was a screening mammogram. She had not had any prior surgery or biopsies of her breast. She is not complaining of any new lumps masses or nodules of concern in either breast. She is not complaining of any nipple discharge or skin changes. She has not had any recent trauma or infection of the breast. She is not complaining of any pain in the breast. She tolerated the stereotactic core biopsy with no difficulty. Case presented at tumor board on 08-18-23 patient wished to proceed with right mastectomy and SNB; the patient does not want to see plastic surgeon and is not interested in reconstruction Patients sister called stating that she has a factor V Lieden deficiency and this was discussed with Dr. Dimas Alejo, he states no further testing for patient, just be sure that heparin given subq, pre-op. The patient on 09-22-23 underwent a right mastectomy ad SNB, all nodes were (-), there was a 1.5 cm invasive ductal cancer Her oncotype was 51 and the patient underwent taxotere and cytoxin adjuvant chemotherapy this was completed in Dec [address] Gee reviewed 02-05-24; probable anestrazole and appointment with radiation oncology 08-11-24 mastectomy 09-22-23 1.5 cm IDC, extensive DCIS 5.5 cm4 nodes (-) for mets all margins (-) left breast mammogram 08-04-24 BIRAD 2 personally interpreted note radiation oncology 02-22-20 reviewed, did not recommend radiation note medical oncology 02-05-24 reviewed: recommend annestrazole She is not complaining of any new lumps masses or nodules of concern in the left breast or on the right chest wall. She is complaining of fatigue at this time. Caffeine: 4 cans of pop/day nicotine: none chocolate: occasional hormones: none BCP: never used Family History: sister: ? cervical cancer Hormonal History: menarche: 10 G1M1 at age 41 menopause: 51 Surgical History: spinal cord stiumlator for pain stero biopsy of the right breast bilateral carpel tunnel left thumb left elbow bilatearl cataract surgery bilateral vascular stents in legs ( 2019) right breast mastectomy and SNB; 09-22-23 port left chest which was placed on right chest left port removed Medical History: GERD planter fasciitis Back pain bulging disc 3 in neck and 4 in back (Dr. Anderson) depression COPD Social History: nicotine: none alcohol: none drugs:none - Constitutional Constitutional: Reports sweats - EENT Eyes: bilateral as per HPI Ears: deny: decreased hearing, tinnitus Ears, nose, mouth and throat: Denies headache, Denies sore throat - Breasts Breasts: bilateral: as per HPI - Cardiovascular Cardiovascular: Denies chest pain, Denies shortness of breath - Respiratory Comment: COPD Respiratory: Denies cough - Gastrointestinal Gastrointestinal: Reports as per HPI - Genitourinary (Female) Genitourinary: Denies dysuria, Denies hematuria - Menstruation Menstruation: Reports postmenopausal - Musculoskeletal Musculoskeletal: Reports myalgias - Integumentary Comment: none - Neurological Neurological: Reports numbness, Reports weakness - Psychiatric Psychiatric: Reports depression, Denies anxiety - Endocrine Endocrine: Denies fatigue, Denies weight change - Hematologic/Lymphatic Comment: aspirin - Allergic/Immunologic Allergic/Immunologic: Reports seasonal allergies Past Medical History Past Medical History: COPD, GERD/Reflux, Osteoarthritis (OA), Sleep Apnea/CPAP/BIPAP Additional Past Medical History / Comment(s): Back pain. Heel Spurs. USES CPAP. Bunions. History of Any Multi-Drug Resistant Organisms: None Reported Past Surgical History: Orthopedic Surgery Additional Past Surgical History / Comment(s): Pain Injection Procedures; Colonoscopy. Carpal tunnel bilat Angioplasty with bilat stents in legs Past Anesthesia/Blood Transfusion Reactions: No Reported Reaction Additional Past Anesthesia/Blood Transfusion Reaction / Comment(s): "Trouble getting tube in, tooth chipped." Past Psychological History: Depression Additional Psychological History / Comment(s): mild Smoking Status: Never smoker Past Alcohol Use History: None Reported Past Drug Use History: None Reported - Past Family History Mother Family Medical History: No Reported History Father Family Medical History: Pulmonary Embolus Medications and Allergies Home Medications Medication Instructions Recorded Confirmed Type Omeprazole 20 mg PO AC-BID 04/14/17 07/09/23 History Albuterol Inhaler [Ventolin Hfa 1 - 2 puff INHALATION Q6HR PRN 07/17/17 07/09/23 History Inhaler] Cholecalciferol [Vitamin D3 (25 2,000 unit PO DAILY 09/24/18 07/09/23 History Mcg = 1000 Iu)] Furosemide [Lasix] 40 mg PO DAILY 09/24/18 07/09/23 History Pregabalin [Lyrica] 75 mg PO BID 09/24/18 07/09/23 History buPROPion SR [Wellbutrin SR] 150 mg PO DAILY 09/22/19 07/09/23 History tiZANidine [Zanaflex] 4 mg PO HS 09/22/19 07/09/23 History Ibuprofen [Motrin] 800 mg PO TID PRN 11/16/19 07/09/23 History Aspirin 325 mg PO DAILY #90 tab 12/19/19 07/09/23 Rx Loratadine [Claritin] 10 mg PO DAILY 07/09/23 07/09/23 History Montelukast [Singulair] 10 mg PO DAILY 07/09/23 07/09/23 History traMADol HCL 50 mg PO BID 07/09/23 07/09/23 History Allergies Allergy/AdvReac Type Severity Reaction Status Date / Time No Known Allergies Allergy Verified 07/09/23 11:07 Objective - Vital Signs Vital signs: Vital Signs Temp 98.3 F 08/11/24 15:23 Pulse 94 08/11/24 15:23 Resp 16 08/11/24 15:23 BP 128/79 08/11/24 15:23 Pulse Ox 96 08/11/24 15:23 FiO2 Intake & Output 08/10/24 08/11/24 08/11/24 18:59 06:59 18:59 Weight 92.986 kg - Constitutional General appearance: Present: cooperative - EENT Eyes: Present: EOMI ENT: Present: hearing grossly normal - Neck Neck: Present: normal ROM - Respiratory Respiratory: bilateral: CTA - Cardiovascular Rhythm: regular Heart sounds: normal: S1, S2 - Integumentary Integumentary: Present: normal turgor - Musculoskeletal Musculoskeletal: Present: gait normal - Psychiatric Psychiatric: Present: A&O x's 3, appropriate affect, intact judgment & insight - Additional findings Additional findings: Breast Exam: BRA: 40B Inspection: right mastectomy, left breast grade 2 ptosis Palpation: Right chest wall no lesions of concern, port in place Right axilla: No adenopathy of concern Left breast: No dominant masses or nodules of concern on multiple positional exam, dense breast fibrocystic changes Left axilla: No adenopathy of concern Assessment and Plan Assessment: Impression: GERD planter fasciitis Back pain bulging disc 3 in neck and 4 in back (Dr. Anderson) depression COPD right breast invasive ductal cancer stage 1 Plan: left mammogram in 1 year continue to follow medical oncology follow up in 6 months The patient is complaining of fatigue, we will order a thyroid function studies and CBC. She will follow-up after these are done. CC: Joy Maharaj
[2024-08-11 20:12] LABS: Basophils # (A) 0.03 X 10*3/uL (0.00-0.10); Basophils % (A) 0.5 %; Eosinophils # (A) 0.42 X 10*3/uL (0.04-0.35); Eosinophils % (A) 7.5 %; HCT 42.1 % (37.2-46.3); HGB 13.8 g/dL (12.0-15.0); Lymphocytes # (A) 1.08 X 10*3/uL (0.90-5.00); Lymphocytes % (A) 19.2 %; MCH 27.8 pg (27.0-32.0); MCHC 32.8 g/dL (32.0-37.0); MCV 84.9 FL (80.0-97.0); Mean Platelet Volume 10.3 FL (9.5-12.2); Monocytes # (A) 0.58 X 10*3/uL (0.20-1.00); Monocytes % (A) 10.3 %; NRBC Per 100 WBC 0 X 10*3/uL (0.00-0.01); Neutrophils # (A) 3.49 X 10*3/uL (1.80-7.70); Neutrophils % (A) 62.1 %; Platelet Count 170 X 10*3/uL (140-440); RBC 4.96 X 10*6/uL (4.10-5.20); RDW 14.3 % (11.5-14.5); WBC 5.62 X 10*3/uL (4.50-10.00)
[2024-08-11 22:17] LABS: T4, Free (Free Thyroxine) 1.13 ng/dL (0.80-1.80)
== END ==
LOC: WWCWWP 14:27
PROVIDERS: ATTEND Surgery
DX: C50.911 Malignant neoplasm of unspecified site of right female breast (principal); K21.9 Gastro-esophageal reflux disease without esophagitis; M72.2 Plantar fascial fibromatosis; J44.9 Chronic obstructive pulmonary disease, unspecified; F32.A Depression, unspecified; M54.9 Dorsalgia, unspecified; M50.20 Other cervical disc displacement, unspecified cervical region; Z90.11 Acquired absence of right breast and nipple; Z17.0 Estrogen receptor positive status [ER+]
CPT/HCPCS: 84439; 84443; 84481; 85025

== ENCOUNTER 2025-02-10 10:31 | Emergency (ER) | payer MEDICARE, OTHER ==
[2025-02-10 10:35] VITALS: RESP 20; TEMP 98.5
--- NOTE | 2025-02-10 10:46 | ED ---
ENT HPI - General Chief complaint: ENT Stated complaint: object stuck in throat Time Seen by Provider: 02/10/25 10:39 Source: patient, family, RN notes reviewed Mode of arrival: wheelchair - History of Present Illness Initial comments: 54-year-old female presenting to emergency department with complaints of foreign body sensation in throat. Patient states that this morning she was taking her morning medications and she believes there is a pill stuck in her throat. Patient states that she feels extremely nauseous and is not able to fully swallow if she is continuously spitting up her saliva gagging. However she is denying difficulty in breathing. Patient states that she takes her morning medications by putting them into a pill bottle that she believes is empty and taking all of them at once. - Related Data Home Medications Medication Instructions Recorded Confirmed Albuterol Inhaler [Ventolin Hfa 1 - 2 puff INHALATION Q6HR PRN 07/17/17 08/11/24 Inhaler] Cholecalciferol [Vitamin D3 (25 2,000 unit PO DAILY 09/24/18 08/11/24 Mcg = 1000 Iu)] Furosemide [Lasix] 40 mg PO DAILY PRN 09/24/18 08/11/24 Pregabalin [Lyrica] 75 mg PO BID 09/24/18 08/11/24 tiZANidine [Zanaflex] 4 mg PO HS 09/22/19 08/11/24 Ibuprofen [Motrin] 800 mg PO TID PRN 11/16/19 08/11/24 Loratadine [Claritin] 10 mg PO HS 07/09/23 08/11/24 Montelukast [Singulair] 10 mg PO HS 07/09/23 08/11/24 traMADol HCL 50 mg PO BID 07/09/23 08/11/24 L.acidoph,Paracasei, B.lactis 1 each PO DAILY 09/18/23 08/11/24 [Probiotic] Levothyroxine Sodium 25 mcg PO 0500 09/18/23 08/11/24 Omeprazole 40 mg PO HS 09/18/23 08/11/24 Turmeric Root Extract [Turmeric] 1,000 mg PO DAILY 09/18/23 08/11/24 Previous Rx's Medication Instructions Recorded Aspirin 325 mg PO DAILY #90 tab 12/19/19 HYDROcodone/APAP 5-325MG [[place] 5] 1 - 2 each PO Q6HR PRN #10 tab 09/22/23 Allergies Allergy/AdvReac Type Severity Reaction Status Date / Time No Known Allergies Allergy Verified 02/10/25 10:35 Review of Systems ROS Statement: Those systems with pertinent positive or pertinent negative responses have been documented in the HPI. ROS Other: All systems not noted in ROS Statement are negative. Past Medical History Past Medical History: Cancer, COPD, GERD/Reflux, Osteoarthritis (OA), Sleep Apnea/CPAP/BIPAP, Thyroid Disorder Additional Past Medical History / Comment(s): Current right breast cancer. Back pain. Heel Spurs. Uses CPAP. Bunions. Migraines rarely. History of Any Multi-Drug Resistant Organisms: None Reported Past Surgical History: Breast Surgery, Orthopedic Surgery Additional Past Surgical History / Comment(s): Pain injection procedures, colonoscopy, bilateral carpal tunnel, cubital tunnel left elbow, angioplasty with bilateral stents in legs, spinal stimulator placed, right breast biopsy. Past Anesthesia/Blood Transfusion Reactions: No Reported Reaction, Motion Sickness, Postoperative Nausea & Vomiting (PONV) Additional Past Anesthesia/Blood Transfusion Reaction / Comment(s): "Trouble getting tube in once, tooth got chipped, no problems since." Past Psychological History: Depression Smoking Status: Never smoker Past Alcohol Use History: None Reported Past Drug Use History: None Reported - Past Family History Mother Family Medical History: No Reported History Father Family Medical History: Pulmonary Embolus Sister(s) Family Medical History: Pulmonary Embolus General Exam General appearance: alert, in no apparent distress Eye exam: Present: normal appearance, PERRL, EOMI. Absent: scleral icterus, conjunctival injection, periorbital swelling Expanded Throat exam: normal inspection. negative: tonsillar erythema, tonsillomegaly Neck exam: Present: normal inspection. Absent: tenderness, meningismus, lymphadenopathy Respiratory exam: Present: normal lung sounds bilaterally. Absent: respiratory distress, wheezes, rales, rhonchi, stridor Cardiovascular Exam: Present: regular rate, normal rhythm, normal heart sounds. Absent: systolic murmur, diastolic murmur, rubs, gallop, clicks GI/Abdominal exam: Present: soft, normal bowel sounds. Absent: distended, tenderness, guarding, rebound, rigid Extremities exam: Present: normal inspection, full ROM, normal capillary refill. Absent: tenderness, pedal edema, joint swelling, calf tenderness Back exam: Present: normal inspection Course Vital Signs 02/10/25 02/10/25 10:32 10:57 Temperature 98.5 F Pulse Rate 110 H 89 Respiratory 20 20 Rate Blood Pressure 148/82 127/78 O2 Sat by Pulse 98 98 Oximetry Medical Decision Making - Medical Decision Making Was pt. sent in by a medical professional or institution (, PA, PEST LOCATOR, urgent care, hospital, or snf...) When possible be specific @ -No Did you speak to anyone other than the patient for history (EMS, parent, family, police, friend...)? What history was obtained from this source @ -No Did you review nursing and triage notes (agree or disagree)? Why? @ -I reviewed and agree with nursing and triage notes Were old charts reviewed (outside hosp., previous admission, EMS record, old EKG, old radiological studies, urgent care reports/EKG's, snf records)? Report findings @ -No old charts were reviewed Differential Diagnosis (chest pain, altered mental status, abdominal pain women, abdominal pain men, vaginal bleeding, weakness, fever, dyspnea, syncope, headache, dizziness, GI bleed, back pain, seizure, CVA, palpatations, mental health, musculoskeletal)? @ -Differential Dyspnea: Coronary syndrome, arrhythmia, tamponade, asthma, COPD, pulmonary embolism, pneumonia, pneumothorax, pulmonary effusion, anaphylaxis, diabetic ketoacidosis, flailed chest, pulmonary contusion, diaphragmatic rupture, anemia, neuromuscular, this is not meant to be an all-inclusive list. EKG interpreted by me (3pts min.). @ -none X-rays interpreted by me (1pt min.). @ -None done CT interpreted by me (1pt min.). @ -None done U/S interpreted by me (1pt. min.). @ -None done What testing was considered but not performed or refused? (CT, X-rays, U/S, labs)? Why? @ -None What meds were considered but not given or refused? Why? @ -None Did you discuss the management of the patient with other professionals (professionals i.e. , MED, PEST LOCATOR, lab, RT, psych nurse, case management social worker, optical sales associate, teacher, seaman officer, block and case maker)? Give summary @ -No Was smoking cessation discussed for >3mins.? @ -No Was critical care preformed (if so, how long)? @ -No Were there social determinants of health that impacted care today? How? (Homelessness, low income, unemployed, alcoholism, drug addiction, transportation, low edu. Level, literacy, decrease access to med. care, penitentiary, rehab)? @ -No Was there de-escalation of care discussed even if they declined (Discuss DNR or withdrawal of care, Hospice)? DNR status @ -No What co-morbidities impacted this encounter? (DM, HTN, Smoking, COPD, CAD, Cancer, CVA, ARF, Chemo, Hep., AIDS, mental health diagnosis, sleep apnea, morbid obesity)? @ -None Was patient admitted / discharged? Hospital course, mention meds given and route, prescriptions, significant lab abnormalities, going to OR and other pertinent info. @ -Discharge. 54-year-old presenting with foreign body sensation in throat. On my evaluation of the patient she is noted to be quite uncomfortable with spitting oral secretions and dry heaving. Unable to visualize posterior oropharynx therefore tongue depressor was used. While in the room patient had a large episode of emesis with contents of a desiccant canister. After emesis and removal of foreign object patient is feeling well and no signs of distress and vitals are stable. Patient states that her symptoms have resolved. She is provided with dose of Zofran. Case discussed with Dr. Storey Undiagnosed new problem with uncertain prognosis? @ -No Drug Therapy requiring intensive monitoring for toxicity (Heparin, Nitro, Insulin, Cardizem)? @ -No Were any procedures done? @ -No Diagnosis/symptom? @ -Swallowed foreign body Acute, or Chronic, or Acute on Chronic? @ -Acute Uncomplicated (without systemic symptoms) or Complicated (systemic symptoms)? @ -Uncomplicated Side effects of treatment? @ -No Exacerbation, Progression, or Severe Exacerbation? @ -No Poses a threat to life or bodily function? How? (Chest pain, [place], [place], pneumonia, PE, COPD, DKA, ARF, appy, cholecystitis, CVA, Diverticulitis, Homicidal, Suicidal, threat to staff... and all critical care pts) @ -No Disposition Clinical Impression: Swallowed foreign body Disposition: HOME SELF-CARE Condition: Good Additional Instructions: Please return to the Emergency Department if symptoms worsen or any other concerns. Is patient prescribed a controlled substance at d/c from ED?: No Referrals: Ellie Najera MD [Primary Care Provider] - 1-2 days Time of Disposition: 10:50
[2025-02-10] MEDS: ONDANSETRON ODT 4 MG TAB PO STA (10:55)
[2025-02-10 11:00] VITALS: BP 127/78; PULSE 89
== END 2025-02-10 11:01 | disposition home or self-care (01) ==
LOC: EC 10:31
DX: T17.298A Other foreign object in pharynx causing other injury, initial encounter (principal); W44.8XXA Other foreign body entering into or through a natural orifice, initial encounter
CPT/HCPCS: 99283

== ENCOUNTER → 2025-03-02 | Outpatient (CLI) | payer MEDICARE, OTHER ==
[2025-03-02 14:30] VITALS: BP 121/80; PULSE 90; RESP 17; TEMP 98.1
--- NOTE | 2025-03-02 14:49 | P.PN ---
Subjective Progress Note Date: 03/02/25 Principal diagnosis: right breast [id number] invasive ductal cancer 2022; extensive DCIS 03-02-25 Principal diagnosis: Chief Complaint: Right breast [id number] invasive ductal cancer 2022; extensive DCIS Aleshia is a 53 year old white female seen in consultation for Dr. Marx regarding a biopsy proven right breast DCIS. She had a bilateral screening mammogram on 07-03-23 followed by bilateral diagnostic mammograms on 07-07-23. Pleomorphic calcifications 5 by 5 by 4.7 cm seen in the UOQ of the right breast. Core biopsy on 07-23-23 + DCIS high grade. The patient did not feel any lumps masses or nodules of concern in either breast. This was a screening mammogram. She had not had any prior surgery or biopsies of her breast. She is not complaining of any new lumps masses or nodules of concern in either breast. She is not complaining of any nipple discharge or skin changes. She has not had any recent trauma or infection of the breast. She is not complaining of any pain in the breast. She tolerated the stereotactic core biopsy with no difficulty. Case presented at tumor board on 08-18-23 patient wished to proceed with right mastectomy and SNB; the patient does not want to see plastic surgeon and is not interested in reconstruction Patients sister called stating that she has a factor V Lieden deficiency and this was discussed with Dr. Dimas Alejo, he states no further testing for patient, just be sure that heparin given subq, pre-op. The patient on 09-22-23 underwent a right mastectomy ad SNB, all nodes were (-), there was a 1.5 cm invasive ductal cancer Her oncotype was 51 and the patient underwent taxotere and cytoxin adjuvant chemotherapy this was completed in Dec [address] Gee reviewed 02-05-24; probable anestrazole and appointment with radiation oncology 08-11-24 mastectomy 09-22-23 1.5 cm IDC, extensive DCIS 5.5 cm 4 nodes (-) for mets all margins (-) left breast mammogram 08-04-24 BIRAD 2 personally interpreted note radiation oncology 02-22-20 reviewed, did not recommend radiation note medical oncology 02-05-24 reviewed: recommend anastrazole She is not complaining of any new lumps masses or nodules of concern in the left breast or on the right chest wall. She is complaining of fatigue at this time. 03-02-25 mastectomy 09-22-23 1.5 cm IDC, extensive DCIS 5.5 cm 4 nodes (-) for mets all margins (-) left breast mammogram 08-04-24 BIRAD 2 personally interpreted Genetic testing VUS note radiation oncology from last visit 02-22-20 reviewed, did not recommend radiation note medical oncology from last visit 02-05-24 reviewed: recommend anastrazole; completed taxotere and cytoxin adjuvant chemotherapy this was completed in Dec 2023 She is not complaining of any new lumps masses or nodules of concern in the left breast or on the right chest wall. 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 cervical cancer Hormonal History: menarche: 10 G1M1 at age 41 menopause: 51 Surgical History: spinal cord stiumlator for pain stero biopsy of the right breast bilateral carpel tunnel left thumb left elbow bilatearl cataract surgery bilateral vascular stents in legs ( 2019) right breast mastectomy and SNB; 09-22-23 port left chest which was placed on right chest left port removed Medical History: GERD planter fasciitis Back pain bulging disc 3 in neck and 4 in back (Dr. Anderson) depression COPD Social History: nicotine: none alcohol: none drugs:none - Constitutional Constitutional: Reports sweats - EENT Eyes: bilateral as per HPI Ears: deny: decreased hearing, tinnitus Ears, nose, mouth and throat: Denies headache, Denies sore throat - Breasts Breasts: bilateral: as per HPI - Cardiovascular Cardiovascular: Denies chest pain, Denies shortness of breath - Respiratory Comment: COPD Respiratory: Denies cough - Gastrointestinal Gastrointestinal: Reports as per HPI - Genitourinary (Female) Genitourinary: Denies dysuria, Denies hematuria - Menstruation Menstruation: Reports postmenopausal - Musculoskeletal Musculoskeletal: Reports myalgias - Integumentary Comment: none - Neurological Neurological: Reports numbness, Reports weakness - Psychiatric Psychiatric: Reports depression, Denies anxiety - Endocrine Endocrine: Denies fatigue, Denies weight change - Hematologic/Lymphatic Comment: aspirin - Allergic/Immunologic Allergic/Immunologic: Reports seasonal allergies Past Medical History Past Medical History: COPD, GERD/Reflux, Osteoarthritis (OA), Sleep Apnea/CPAP/BIPAP Additional Past Medical History / Comment(s): Back pain. Heel Spurs. USES CPAP. Bunions. History of Any Multi-Drug Resistant Organisms: None Reported Past Surgical History: Orthopedic Surgery Additional Past Surgical History / Comment(s): Pain Injection Procedures; Colonoscopy. Carpal tunnel bilat Angioplasty with bilat stents in legs Past Anesthesia/Blood Transfusion Reactions: No Reported Reaction Additional Past Anesthesia/Blood Transfusion Reaction / Comment(s): "Trouble getting tube in, tooth chipped." Past Psychological History: Depression Additional Psychological History / Comment(s): mild Smoking Status: Never smoker Past Alcohol Use History: None Reported Past Drug Use History: None Reported - Past Family History Mother Family Medical History: No Reported History Father Family Medical History: Pulmonary Embolus Medications and Allergies Home Medications Medication Instructions Recorded Confirmed Type Omeprazole 20 mg PO AC-BID 04/14/17 07/09/23 History Albuterol Inhaler [Ventolin Hfa 1 - 2 puff INHALATION Q6HR PRN 07/17/17 07/09/23 History Inhaler] Cholecalciferol [Vitamin D3 (25 2,000 unit PO DAILY 09/24/18 07/09/23 History Mcg = 1000 Iu)] Furosemide [Lasix] 40 mg PO DAILY 09/24/18 07/09/23 History Pregabalin [Lyrica] 75 mg PO BID 09/24/18 07/09/23 History buPROPion SR [Wellbutrin SR] 150 mg PO DAILY 09/22/19 07/09/23 History tiZANidine [Zanaflex] 4 mg PO HS 09/22/19 07/09/23 History Ibuprofen [Motrin] 800 mg PO TID PRN 11/16/19 07/09/23 History Aspirin 325 mg PO DAILY #90 tab 12/19/19 07/09/23 Rx Loratadine [Claritin] 10 mg PO DAILY 07/09/23 07/09/23 History Montelukast [Singulair] 10 mg PO DAILY 07/09/23 07/09/23 History traMADol HCL 50 mg PO BID 07/09/23 07/09/23 History Allergies Allergy/AdvReac Type Severity Reaction Status Date / Time No Known Allergies Allergy Verified 07/09/23 11:07 Objective - Vital Signs Vital signs: Vital Signs Temp 98.1 F 03/02/25 14:27 Pulse 90 03/02/25 14:27 Resp 17 03/02/25 14:27 BP 121/80 03/02/25 14:27 Pulse Ox 97 03/02/25 14:27 FiO2 Intake & Output 03/01/25 03/02/25 03/02/25 18:59 06:59 18:59 Weight 90.718 kg - Constitutional General appearance: Present: cooperative - EENT Eyes: Present: EOMI ENT: Present: hearing grossly normal - Neck Neck: Present: normal ROM - Respiratory Respiratory: bilateral: CTA - Cardiovascular Rhythm: regular Heart sounds: normal: S1, S2 - Integumentary Integumentary: Present: normal turgor - Musculoskeletal Musculoskeletal: Present: gait normal - Psychiatric Psychiatric: Present: A&O x's 3, appropriate affect, intact judgment & insight - Additional findings Additional findings: Breast Exam: BRA: 40B Inspection: right mastectomy, left breast grade 2 ptosis Palpation: Right chest wall no lesions of concern, port in place Right axilla: No adenopathy of concern Left breast: No dominant masses or nodules of concern on multiple positional exam, dense breast fibrocystic changes Left axilla: No adenopathy of concern Assessment and Plan Assessment: Impression: GERD planter fasciitis Back pain bulging disc 3 in neck and 4 in back (Dr. Anderson) depression COPD right breast invasive ductal cancer stage 1 Plan: left mammogram in July 2025 with appointment continue to follow medical oncology/ recommend anastrazole continued fatigue follow with primary care CC: Joy Maharaj
== END ==
LOC: WWCWWP 13:18
PROVIDERS: ATTEND Surgery
DX: M72.2 Plantar fascial fibromatosis (principal); K21.9 Gastro-esophageal reflux disease without esophagitis; J44.9 Chronic obstructive pulmonary disease, unspecified; M50.30 Other cervical disc degeneration, unspecified cervical region; D05.11 Intraductal carcinoma in situ of right breast; F32.A Depression, unspecified

== ENCOUNTER 2025-03-15 17:44 | Inpatient (IN) | payer MEDICARE, OTHER ==
--- NOTE | 2025-03-15 18:19 | ED ---
General Adult HPI - General Source: patient, RN notes reviewed Mode of arrival: wheelchair Limitations: no limitations <Chloe Lima - Last Filed: 03/15/25 18:17> - General Source: patient, RN notes reviewed, old records reviewed Mode of arrival: wheelchair Limitations: no limitations - History of Present Illness -: days(s) Location: left, lower extremity Radiation: extremity Quality: stabbing, aching Consistency: constant Improves with: none Worsens with: none Associated Symptoms: fever/chills Treatments Prior to Arrival: none <Keo Martinez - Last Filed: 03/19/25 20:35> - General Chief complaint: Extremity Problem,Nontraumatic Stated complaint: L Leg swelling/pain Time Seen by Provider: 03/15/25 18:00 - History of Present Illness Initial comments: Quick [id number] female presenting to the emergency department for complaints of left lower extremity swelling, pain, and bruising that started on Thursday. She states that she has pain with walking and noticed that her foot appears darker in color. She denies chest pain or difficulty breathing. Denies history of DVT or PE. (Chloe Lima) This is a 55 female to ER for left lower extremity severe left lower extremity pain and swelling weakness, patient has underlying history of CVA recent chemotherapy 2 months ago (Keo Martinez) - Related Data Home Medications Medication Instructions Recorded Confirmed Albuterol Inhaler [Ventolin Hfa 2 puff INHALATION RT-Q4H PRN 07/17/17 03/16/25 Inhaler] tiZANidine [Zanaflex] 4 mg PO HS 09/22/19 03/16/25 Loratadine [Claritin] 10 mg PO HS 07/09/23 03/16/25 Montelukast [Singulair] 10 mg PO HS 07/09/23 03/16/25 L.acidoph,Willi, B.lactis 1 cap PO HS 09/18/23 03/16/25 [Probiotic] Anastrozole [Arimidex] 1 mg PO DAILY 03/16/25 03/16/25 Calcium Carbonate [Calcium] 600 mg PO HS 03/16/25 03/16/25 Cholecalciferol (Vitamin D3) 75 mcg PO HS 03/16/25 03/16/25 [Vitamin D3 (3000 Iu)] DULoxetine HCL [Cymbalta] 60 mg PO DAILY 03/16/25 03/16/25 Ibuprofen [Motrin] 800 mg PO BID PRN 03/16/25 03/16/25 Magnesium Oxide [Magnesium] 500 mg PO HS 03/16/25 03/16/25 Omeprazole [PriLOSEC] 40 mg PO HS 03/16/25 03/16/25 Pregabalin [Lyrica] 150 mg PO TID 03/16/25 03/16/25 buPROPion SR [Wellbutrin SR] 150 mg PO DAILY 03/16/25 03/16/25 Allergies Allergy/AdvReac Type Severity Reaction Status Date / Time No Known Allergies Allergy Verified 03/16/25 08:45 Review of Systems ROS Other: All systems not noted in ROS Statement are negative. <Chloe Lima - Last Filed: 03/15/25 18:17> ROS Other: All systems not noted in ROS Statement are negative. <Keo Martinez - Last Filed: 03/19/25 20:35> ROS Statement: Those systems with pertinent positive or pertinent negative responses have been documented in the HPI. Past Medical History Past Medical History: Cancer, COPD, GERD/Reflux, Osteoarthritis (OA), Sleep Apnea/CPAP/BIPAP, Thyroid Disorder Additional Past Medical History / Comment(s): Current right breast cancer. Back pain. Heel Spurs. Uses CPAP. Bunions. Migraines rarely. History of Any Multi-Drug Resistant Organisms: None Reported Past Surgical History: Breast Surgery, Orthopedic Surgery Additional Past Surgical History / Comment(s): Pain injection procedures, colonoscopy, bilateral carpal tunnel, cubital tunnel left elbow, angioplasty with bilateral stents in legs, spinal stimulator placed, right breast biopsy. Past Anesthesia/Blood Transfusion Reactions: No Reported Reaction, Motion Sickness, Postoperative Nausea & Vomiting (PONV) Additional Past Anesthesia/Blood Transfusion Reaction / Comment(s): "Trouble getting tube in once, tooth got chipped, no problems since." Past Psychological History: Depression Smoking Status: Never smoker Past Alcohol Use History: None Reported Past Drug Use History: None Reported - Past Family History Mother Family Medical History: No Reported History Father Family Medical History: Pulmonary Embolus Sister(s) Family Medical History: Pulmonary Embolus <Chloe Lima - Last Filed: 03/15/25 18:17> General Exam Limitations: no limitations <Chloe Lima - Last Filed: 03/15/25 18:17> General appearance: alert, in no apparent distress Head exam: Present: atraumatic, normocephalic, normal inspection Eye exam: Present: normal appearance, PERRL, EOMI. Absent: scleral icterus, conjunctival injection, periorbital swelling ENT exam: Present: normal exam, mucous membranes moist Neck exam: Present: normal inspection. Absent: tenderness, meningismus, lymphadenopathy Respiratory exam: Present: normal lung sounds bilaterally. Absent: respiratory distress, wheezes, rales, rhonchi, stridor Cardiovascular Exam: Present: regular rate, normal rhythm, normal heart sounds. Absent: systolic murmur, diastolic murmur, rubs, gallop, clicks GI/Abdominal exam: Present: soft, normal bowel sounds. Absent: distended, tenderness, guarding, rebound, rigid Extremities exam: Present: normal inspection, full ROM, normal capillary refill. Absent: tenderness, pedal edema, joint swelling, calf tenderness Back exam: Present: normal inspection Neurological exam: Present: alert, oriented X3, CN II-XII intact Psychiatric exam: Present: normal affect, normal mood Skin exam: Present: warm, dry, intact, normal color. Absent: rash <Keo Martinez - Last Filed: 03/19/25 20:35> - General Exam Comments Initial Comments: Visual Physical Exam Vital signs reviewed General: Well-appearing, nontoxic, no acute distress. Head: Normocephalic, atraumatic Eyes: PERRLA, EOMI ENT: Airway patent Chest: Nonlabored breathing Skin: No visual rash, normal skin tone Neuro: Alert and oriented 3 Musculoskeletal: No gross abnormalities (Stieler,) Course <Keo Martinez - Last Filed: 03/19/25 20:35> Vital Signs 03/15/25 03/15/25 03/16/25 18:05 23:13 01:32 Temperature 100.7 F H 98.1 F Pulse Rate 107 H 93 87 Respiratory 16 18 18 Rate Blood Pressure 124/80 110/53 110/53 O2 Sat by Pulse 96 100 95 Oximetry 03/16/25 03/16/25 03/16/25 03:16 05:44 07:20 Temperature 98.7 F 97.8 F Pulse Rate 84 85 78 Respiratory 16 16 18 Rate Blood Pressure 114/69 126/73 120/78 O2 Sat by Pulse 95 95 98 Oximetry - Reevaluation(s) Reevaluation #1: 03/16/25 01:31 Medical records reviewed (Keo Martinez) Reevaluation #2: 03/16/25 01:31 Patient symptoms improving (Keo Martinez) Reevaluation #3: 03/16/25 01:31 Patient is informed of results questions answered (Keo Martinez) Reevaluation #4: Was pt. sent in by a medical professional or institution (MED Casiano, MOVIE WRITER, urgent care, hospital, or assisted...) When possible be specific @ -no Did you speak to anyone other than the patient for history (EMS, parent, family, police, friend...)? What history was obtained from this source @ -no Did you review nursing and triage notes (agree or disagree)? Why? @ -agree Are old charts reviewed (outside hosp., previous admission, EMS record, old EKG, old radiological studies, urgent care reports/EKG's, assisted records)? Report findings @ -yes Differential Diagnosis (chest pain, altered mental status, abdominal pain women, abdominal pain men, vaginal bleeding, weakness, fever, dyspnea, syncope, headache, dizziness, GI bleed, back pain, seizure, CVA, palpatations, mental health, musculoskeletal)? @ -prior EKG interpreted by me (3pts min.). @ -yes X-rays interpreted by me (1pt min.). @ -no CT interpreted by me (1pt min.). @ -yes negative for acute disease U/S interpreted by me (1pt. min.). @ - yes positive for DVT what testing was considered but not performed or refused? (CT, X-rays, U/S, labs)? Why? @ -none What meds were considered but not given or refused? Why? @ -none Did you discuss the management of the patient with other professionals (professionals i.e. MED [facility], MOVIE WRITER, lab, RT, psych nurse, child protective services social worker, blood bank technologist, teacher, correctional probation officer, case technician)? Give summary @ -no Was smoking cessation discussed for >3mins.? @ -no Was critical care preformed (if so, how long)? @ -no Were there social determinants of health that impacted care today? How? (Homelessness, low income, unemployed, alcoholism, drug addiction, transportation, low edu. Level, literacy, decrease access to med. care, care home, rehab)? @ -none Was there de-escalation of care discussed even if they declined (Discuss DNR or withdrawal of care, Hospice)? DNR status @ -no What co-morbidities impacted this encounter? (DM, HTN, Smoking, COPD, CAD, Cancer, CVA, ARF, Chemo, Hep., AIDS, mental health diagnosis, sleep apnea, morbid obesity)? @ -none Was patient admitted / discharged? Hospital course, mention meds given and route, prescriptions, significant lab abnormalities, going to OR and other pertinent info. @ - 55 female to the ER for evaluation of fever, weakness, found to have severe left leg pain with left leg DVT. Patient will admit for observation anticoagulation,no found cause of fever Admitted DVT with PE Undiagnosed new problem with uncertain prognosis? @ -no Drug Therapy requiring intensive monitoring for toxicity (Heparin, Nitro, Insulin, Cardizem)? @ -no Were any procedures done? @ -no Diagnosis/symptom? @ -DVT and fever Acute, or Chronic, or Acute on Chronic? @ -Acute Uncomplicated (without systemic symptoms) or Complicated (systemic symptoms)? @ -Complicated Side effects of treatment? @ -no Exacerbation, Progression, or Severe Exacerbation? @ -exacerbation Poses a threat to life or bodily function? How? (Chest pain, USA, MT, pneumonia, PE, COPD, DKA, ARF, appy, cholecystitis, CVA, Diverticulitis, Homicidal, Suicidal, threat to staff... and all critical care pts) @ -yes 03/19/25 20:35 (Keo Martinez) Reevaluation #5: Differential Fever: Pneumonia, viral URI, endocarditis, myocarditis, pericarditis, otitis, sinusitis, peritonsillar Abscess, retropharyngeal Abscess, epiglottitis, peritonitis, appendicitis, Huyen cystitis, diverticulitis, hepatitis, colitis, UTI, PID, TOA, pyelonephritis, prostatitis, epididymitis, meningitis, encephalit is, pulmonary embolism, CVA, thyroid storm, pancreatitis, adrenal crisis, cavernous sinus thrombosis, this is not meant to be an all-inclusive list. (Keo Martinez) - Consultations Consultation #1: Spoke with [facility] who agrees to admit this patient (Keo Martinez) EKG Findings - EKG Comments: EKG Findings:: EKG sinus 89 NM 144 QRS 88 QTc 398 - EKG Results: EKG: interpreted by ERMD <Keo Martinez - Last Filed: 03/19/25 20:35> Medical Decision Making <Chloe Lima - Last Filed: 03/15/25 18:17> - Lab Data Result diagrams: 03/19/25 05:24 03/19/25 05:24 - EKG Data -: EKG Interpreted by Me - Radiology Data Radiology results: report reviewed (CTA chest), image reviewed <Keo Martinez - Last Filed: 03/19/25 20:35> - Medical Decision Making I completed the quick note portion of this chart signed Chloe Lima PA-C (Chloe Lima) 55 female to the ER for evaluation of fever, weakness, found to have severe left leg pain with left leg DVT. Patient will admit for observation anticoagulation,no found cause of fever (Keo Martinez) - Lab Data Lab Results 03/15/25 03/15/25 03/15/25 Range/Units 22:10 22:10 22:10 WBC 8.42 (4.50-10.00) 10*3/uL RBC 4.14 (4.10-5.20) 10*6/uL Hgb 11.8 L (12.0-15.0) g/dL Hct 34.4 L (37.2-46.3) % MCV 83.1 (80.0-97.0) fL MCH 28.5 (27.0-32.0) pg MCHC 34.3 (32.0-37.0) g/dL Plt Count 151 (140-440) 10*3/uL MPV 9.7 (9.5-12.2) fL Immature Gran % (Auto) 0.6 % Neutrophils % 76.8 % Lymphocytes % 11.4 % Monocytes % 8.1 % Eosinophils % 2.9 % Basophils % 0.2 % Immature Gran # 0.05 H (0.00-0.04) 10*3/uL Neutrophils # 6.47 (1.80-7.70) 10*3/uL Lymphocytes # 0.96 (0.90-5.00) 10*3/uL Monocytes # 0.68 (0.20-1.00) 10*3/uL Eosinophils # 0.24 (0.04-0.35) 10*3/uL Basophils # 0.02 (0.00-0.10) 10*3/uL PT (10.0-12.5) sec INR (<1.2) APTT (22.0-30.0) sec Sodium 137 (137-145) mmol/L Potassium 3.1 L (3.5-5.1) mmol/L Chloride 102 (98-107) mmol/L Carbon Dioxide 25 (22-30) mmol/L Anion Gap 10 mmol/L BUN 20 H (7-17) mg/dL Creatinine 0.79 (0.52-1.04) mg/dL Est GFR (CKD-EPI)AfAm >90 (>60 ml/min/1.73 sqM) Est GFR (CKD-EPI)NonAf 85 (>60 ml/min/1.73 sqM) Glucose 89 (74-99) mg/dL Plasma Lactic Acid Gwyn 0.7 (0.7-2.0) mmol/L Calcium 9.1 (8.4-10.2) mg/dL Phosphorus (2.5-4.5) mg/dL Magnesium (1.6-2.3) mg/dL Total Bilirubin 0.9 (0.2-1.3) mg/dL AST 29 (14-36) U/L ALT 38 H (4-34) U/L Alkaline Phosphatase 94 (38-126) U/L Troponin I (0.000-0.034) ng/mL C-Reactive Protein 4.8 H (<1.0) mg/dL NT-Pro-B Natriuret Pep pg/mL Total Protein 6.0 L (6.3-8.2) g/dL Albumin 3.6 (3.5-5.0) g/dL Lipase (23-300) U/L Urine Color Urine Appearance (Clear) Urine pH (5.0-8.0) Ur Specific [place] (1.001-1.035) Urine Protein (Negative) Urine Glucose (UA) (Negative) Urine Ketones (Negative) Urine Blood (Negative) Urine Nitrite (Negative) Urine Bilirubin (Negative) Urine Urobilinogen (<2.0) mg/dL Ur Leukocyte Esterase (Negative) 03/15/25 03/15/25 03/15/25 Range/Units 23:05 23:13 23:13 WBC (4.50-10.00) 10*3/uL RBC (4.10-5.20) 10*6/uL Hgb (12.0-15.0) g/dL Hct (37.2-46.3) % MCV (80.0-97.0) fL MCH (27.0-32.0) pg MCHC (32.0-37.0) g/dL Plt Count (140-440) 10*3/uL MPV (9.5-12.2) fL Immature Gran % (Auto) % Neutrophils % % Lymphocytes % % Monocytes % % Eosinophils % % Basophils % % Immature Gran # (0.00-0.04) 10*3/uL Neutrophils # (1.80-7.70) 10*3/uL Lymphocytes # (0.90-5.00) 10*3/uL Monocytes # (0.20-1.00) 10*3/uL Eosinophils # (0.04-0.35) 10*3/uL Basophils # (0.00-0.10) 10*3/uL PT 14.9 H (10.0-12.5) sec INR 1.4 H (<1.2) APTT >200.0 H* (22.0-30.0) sec Sodium (137-145) mmol/L Potassium (3.5-5.1) mmol/L Chloride (98-107) mmol/L Carbon Dioxide (22-30) mmol/L Anion Gap mmol/L BUN (7-17) mg/dL Creatinine (0.52-1.04) mg/dL Est GFR (CKD-EPI)AfAm (>60 ml/min/1.73 sqM) Est GFR (CKD-EPI)NonAf (>60 ml/min/1.73 sqM) Glucose (74-99) mg/dL Plasma Lactic Acid Gwyn (0.7-2.0) mmol/L Calcium (8.4-10.2) mg/dL Phosphorus 3.8 (2.5-4.5) mg/dL Magnesium 1.9 (1.6-2.3) mg/dL Total Bilirubin (0.2-1.3) mg/dL AST (14-36) U/L ALT (4-34) U/L Alkaline Phosphatase (38-126) U/L Troponin I <0.012 (0.000-0.034) ng/mL C-Reactive Protein (<1.0) mg/dL NT-Pro-B Natriuret Pep 37 pg/mL Total Protein (6.3-8.2) g/dL Albumin (3.5-5.0) g/dL Lipase 286 (23-300) U/L Urine Color Urine Appearance (Clear) Urine pH (5.0-8.0) Ur Specific [place] (1.001-1.035) Urine Protein (Negative) Urine Glucose (UA) (Negative) Urine Ketones (Negative) Urine Blood (Negative) Urine Nitrite (Negative) Urine Bilirubin (Negative) Urine Urobilinogen (<2.0) mg/dL Ur Leukocyte Esterase (Negative) 03/16/25 03/16/25 Range/Units 01:32 04:09 WBC (4.50-10.00) 10*3/uL RBC (4.10-5.20) 10*6/uL Hgb (12.0-15.0) g/dL Hct (37.2-46.3) % MCV (80.0-97.0) fL MCH (27.0-32.0) pg MCHC (32.0-37.0) g/dL Plt Count (140-440) 10*3/uL MPV (9.5-12.2) fL Immature Gran % (Auto) % Neutrophils % % Lymphocytes % % Monocytes % % Eosinophils % % Basophils % % Immature Gran # (0.00-0.04) 10*3/uL Neutrophils # (1.80-7.70) 10*3/uL Lymphocytes # (0.90-5.00) 10*3/uL Monocytes # (0.20-1.00) 10*3/uL Eosinophils # (0.04-0.35) 10*3/uL Basophils # (0.00-0.10) 10*3/uL PT (10.0-12.5) sec INR (<1.2) APTT 54.3 H (22.0-30.0) sec Sodium (137-145) mmol/L Potassium (3.5-5.1) mmol/L Chloride (98-107) mmol/L Carbon Dioxide (22-30) mmol/L Anion Gap mmol/L BUN (7-17) mg/dL Creatinine (0.52-1.04) mg/dL Est GFR (CKD-EPI)AfAm (>60 ml/min/1.73 sqM) Est GFR (CKD-EPI)NonAf (>60 ml/min/1.73 sqM) Glucose (74-99) mg/dL Plasma Lactic Acid Gwyn (0.7-2.0) mmol/L Calcium (8.4-10.2) mg/dL Phosphorus (2.5-4.5) mg/dL Magnesium (1.6-2.3) mg/dL Total Bilirubin (0.2-1.3) mg/dL AST (14-36) U/L ALT (4-34) U/L Alkaline Phosphatase (38-126) U/L Troponin I (0.000-0.034) ng/mL C-Reactive Protein (<1.0) mg/dL NT-Pro-B Natriuret Pep pg/mL Total Protein (6.3-8.2) g/dL Albumin (3.5-5.0) g/dL Lipase (23-300) U/L Urine Color Colorless Urine Appearance Clear (Clear) Urine pH 5.5 (5.0-8.0) Ur Specific [place] 1.024 (1.001-1.035) Urine Protein Negative (Negative) Urine Glucose (UA) 4+ H (Negative) Urine Ketones Trace H (Negative) Urine Blood Negative (Negative) Urine Nitrite Negative (Negative) Urine Bilirubin Negative (Negative) Urine Urobilinogen <2.0 (<2.0) mg/dL Ur Leukocyte Esterase Negative (Negative) Disposition <Chloe Lima - Last Filed: 03/15/25 18:17> Is patient prescribed a controlled substance at d/c from ED?: No Time of Disposition: 01:30 <Keo Martinez - Last Filed: 03/19/25 20:35> Clinical Impression: Left leg DVT, Weakness, Fever Disposition: ADMITTED IP TO THIS HOSP Condition: Good
--- NOTE | 2025-03-15 21:16 | US ---
EXAMINATION TYPE: US venous doppler duplex LE LT DATE OF EXAM: 03/15/2025 7:59 PM COMPARISON: 12/24/2023. CLINICAL INDICATION: Female, 55 years old with history of pain, swelling; left leg has extensive swel ling and hot to the touch, no h/o dvt TECHNIQUE: The lower extremity deep venous system is examined utilizing real time linear array sonog melyssa with graded compression, color doppler sonography, and spectral doppler. SIDE PERFORMED: Left FINDINGS: VESSELS IMAGED: Common Femoral Vein Deep Femoral Vein Greater Saphenous Vein * Femoral Vein Popliteal Vein Small Saphenous Vein * Proximal Calf Veins (* superficial vessels) Left Leg: Internal echoes throughout dilated vein that does not compress from PTV's extending up thr ough CFV Unable to even see mid/dist FV to do proper compression imaging IMPRESSION: Deep vein thrombosis within the left lower extremity. Findings communicated to provided in the ER. On 03/15/2025 9:[address] Dario Mclean. [facility], , 03/15/2025 9:14 PM
[2025-03-15] MEDS: HEPARIN SOD,PORK IN 0.45% NACL 25,000 UNIT in 0.45% NACL 1 250ML.BAG IV SCH (22:15)
[2025-03-15] MEDS: HEPARIN SODIUM 1,000 UN/ML (10ML VL) IV ONE (22:16)
[2025-03-15] MEDS: KETOROLAC 15 MG/ML 1 ML VIAL IVP STA (22:17)
[2025-03-15] MEDS: ONDANSETRON 4 MG/2 ML VIAL IVP STA (22:17)
[2025-03-15] MEDS: MORPHINE SULFATE 4 MG/ML SYRINGE IVP STA (22:18)
[2025-03-15] MEDS: ACETAMINOPHEN IV (For NPO) 1,000 MG in EMPTY BAG 1 BAG IVPB STA (22:20)
[2025-03-15] MEDS: SODIUM CHLORIDE 0.9% 1,000 ML IV ONE (22:21)
[2025-03-15 22:33] LABS: Basophils # (A) 0.02 10*3/uL (0.00-0.10); Basophils % (A) 0.2 %; Eosinophils # (A) 0.24 10*3/uL (0.04-0.35); Eosinophils % (A) 2.9 %; HCT 34.4 % (37.2-46.3); HGB 11.8 g/dL (12.0-15.0); Lymphocytes # (A) 0.96 10*3/uL (0.90-5.00); Lymphocytes % (A) 11.4 %; MCH 28.5 pg (27.0-32.0); MCHC 34.3 g/dL (32.0-37.0); MCV 83.1 fL (80.0-97.0); Mean Platelet Volume 9.7 fL (9.5-12.2); Monocytes # (A) 0.68 10*3/uL (0.20-1.00); Monocytes % (A) 8.1 %; Neutrophils # (A) 6.47 10*3/uL (1.80-7.70); Neutrophils % (A) 76.8 %; Platelet Count 151 10*3/uL (140-440); RBC 4.14 10*6/uL (4.10-5.20); RDW 13.3 % (11.5-14.5); WBC 8.42 10*3/uL (4.50-10.00)
[2025-03-15 22:58] LABS: ALT 38 U/L (4-34); AST 29 U/L (14-36); African American GFR (CKD) >90 (>60 ml/min/1.73 sqM); Albumin 3.6 g/dL (3.5-5.0); Alkaline Phosphatase 94 U/L (38-126); Anion Gap 10 mmol/L; Blood Urea Nitrogen 20 mg/dL (7-17); C Reactive Protein 4.8 mg/dL (<1.0); Calcium 9.1 mg/dL (8.4-10.2); Carbon Dioxide 25 mmol/L (22-30); Chloride 102 mmol/L (98-107); Glucose 89 mg/dL (74-99); Non-African American GFR(CKD) 85 (>60 ml/min/1.73 sqM); Potassium 3.1 mmol/L (3.5-5.1); Sodium 137 mmol/L (137-145); Total Bilirubin 0.9 mg/dL (0.2-1.3)
[2025-03-15 23:53] LABS: INR 1.4 (<1.2); Prothrombin Time 14.9 sec (10.0-12.5)
[2025-03-15 23:55] LABS: Magnesium 1.9 mg/dL (1.6-2.3); Phosphorus 3.8 mg/dL (2.5-4.5)
[2025-03-16 00:54] LABS: Partial Thromboplastin Time >200.0 sec (22.0-30.0)
[2025-03-16] MEDS ORDERED: MORPHINE SULFATE 4 MG/ML SYRINGE IV PRN (01:28)
[2025-03-16] MEDS ORDERED: ONDANSETRON 4 MG/2 ML VIAL IVP PRN (01:28)
[2025-03-16] MEDS ORDERED: IBUPROFEN 400 MG TAB PO PRN (01:28)
[2025-03-16] MEDS ORDERED: NALOXONE 0.4 MG/ML 1 ML VIAL IV PRN (01:28)
--- NOTE | 2025-03-16 01:52 | CT ---
EXAM: CT Angiography Chest With Intravenous Contrast CLINICAL HISTORY: ITS.REASON CT Reason: PE TECHNIQUE: Axial computed tomographic angiography images of the chest with intravenous contrast. CTDI is 25.1 mGy and DLP is 548.7 mGy-cm. This CT exam was performed using one or more of the following dose reduction techniques: automated exposure control, adjustment of the mA and/or kV according to patient size, and/or use of iterative reconstruction technique. MIP reconstructed images were created and reviewed. COMPARISON: No relevant prior studies available. FINDINGS: Pulmonary arteries: Unremarkable. No pulmonary embolism. Aorta: No acute findings. No thoracic aortic aneurysm. Lungs: Atelectasis at the RIGHT lung base. No mass. Pleural space: Unremarkable. No significant effusion. No pneumothorax. Heart: Unremarkable. No cardiomegaly. No significant pericardial effusion. No evidence of RV dysfunction. Bones/joints: No acute fracture. No dislocation. Soft tissues: RIGHT mastectomy. Skin thickening of the RIGHT breast correlate for cellulitis. Lymph nodes: Unremarkable. No enlarged lymph nodes. Tubes, lines and devices: RIGHT Port-A-Cath terminates in the SVC. Dorsal spinal cord stimulator leads. IMPRESSION: 1. No pulmonary embolism. 2. RIGHT mastectomy. Skin thickening of the RIGHT breast correlate for cellulitis.
[2025-03-16 01:55] LABS: Appearance,Urine Clear (Clear); Bilirubin,Urine Negative (Negative); Blood,Urine Negative (Negative); Color,Urine Colorless; Glucose,Urine (UA) 4+ (Negative); Ketones,Urine Trace (Negative); Leukocyte Esterase,Urine Negative (Negative); Nitrite,Urine Negative (Negative); PH, Urine 5.5 (5.0-8.0); Protein,Urine Negative (Negative); Specific Gravity,Urine 1.024 (1.001-1.035); Urobilinogen,Urine <2.0 mg/dL (<2.0)
[2025-03-16] MEDS: ACETAMINOPHEN TAB 325 MG TAB PO PRN (08:30)
[2025-03-16] MEDS ORDERED: ALBUTEROL NEBULIZED 2.5 MG/3 ML INHALATION PRN (10:45)
[2025-03-16] MEDS: ANASTROZOLE 1 MG TAB PO SCH (11:10)
[2025-03-16] MEDS: buPROPion SR 150 MG TABLET.ER PO SCH (11:10)
[2025-03-16] MEDS: DULoxetine HCL 60 MG CAPSULE.DR PO SCH (11:10)
[2025-03-16] MEDS: IBUPROFEN 800 MG TAB PO PRN (11:16)
--- NOTE | 2025-03-16 14:34 | P.HPIM ---
History of Present Illness H&P Date: 03/16/25 Chief Complaint: Left leg pain and swelling Patient is a 55-year-old female with a past medical history of right breast cancer status postsurgery, COPD, GERD, osteoarthritis, obstructive sleep apnea and hypothyroidism, chronic pain, spinal stimulator placement and depression. Patient presents to ER with complaints of left lower extremity swelling and pain and bruising started 2 days prior to admission. Patient has pain with walking and noticed that her foot appears dark in color. Otherwise denied any chest pain or shortness of breath. No prior history of DVT or PE. Patient received chemotherapy about 2 months ago. Left lower extremity duplex scan showedDVT in the left lower extremity EKG sinus rhythm CT angiogram of the chest showed no PE. Right mastectomy. Skin thickening of the right breast correlate for cellulitis. Laboratory data showed WBC 8.4 hemoglobin 11.8 and platelets 151 Sodium 137 potassium 3.1 chloride 102 bicarb is 25 BUN 20 and creatinine 0.79 and blood sugar 89 and proBNP 37 and troponin less than 0.012 Urinalysis is negative for infection. Review of Systems Constitutional: Patient denies any fever or chills . No generalized weakness or weight loss. Abdomen: Patient denied nausea vomiting and diarrhea and abdominal pain. Cardiovascular: Patient denies any chest pain or short of breath no palpitation s. Respiratory: patient denied any cough or sputum production. No shortness of breath Neurologic: Patient denied any numbness or tingling. no headache. Musculoskeletal: Patient denies any complaints of joint swelling or deformity. Left lower extremity swelling and pain and discoloration Skin: Negative Psychiatric: Negative Endocrine: No heat or cold intolerance. No recent weight gain. Genitourinary: No dysuria or hematuria. All other 14 point ROS negative except the above Past Medical History Past Medical History: Cancer, COPD, GERD/Reflux, Osteoarthritis (OA), Sleep Apnea/CPAP/BIPAP, Thyroid Disorder Additional Past Medical History / Comment(s): Current right breast cancer. Back pain. Heel Spurs. Uses CPAP. Bunions. Migraines rarely. History of Any Multi-Drug Resistant Organisms: None Reported Past Surgical History: Breast Surgery, Orthopedic Surgery Additional Past Surgical History / Comment(s): Pain injection procedures, colonoscopy, bilateral carpal tunnel, cubital tunnel left elbow, angioplasty with bilateral stents in legs, spinal stimulator placed, right breast biopsy. Past Anesthesia/Blood Transfusion Reactions: No Reported Reaction, Motion Sickness, Postoperative Nausea & Vomiting (PONV) Additional Past Anesthesia/Blood Transfusion Reaction / Comment(s): "Trouble getting tube in once, tooth got chipped, no problems since." Past Psychological History: Depression Smoking Status: Never smoker Past Alcohol Use History: None Reported Past Drug Use History: None Reported - Past Family History Mother Family Medical History: No Reported History Father Family Medical History: Pulmonary Embolus Sister(s) Family Medical History: Pulmonary Embolus Medications and Allergies Home Medications Medication Instructions Recorded Confirmed Type Albuterol Inhaler [Ventolin Hfa 2 puff INHALATION RT-Q4H PRN 07/17/17 03/16/25 History Inhaler] tiZANidine [Zanaflex] 4 mg PO HS 09/22/19 03/16/25 History Loratadine [Claritin] 10 mg PO HS 07/09/23 03/16/25 History Montelukast [Singulair] 10 mg PO HS 07/09/23 03/16/25 History L.acidoph,Paracasei, B.lactis 1 cap PO HS 09/18/23 03/16/25 History [Probiotic] Anastrozole [Arimidex] 1 mg PO DAILY 03/16/25 03/16/25 History Calcium Carbonate [Calcium] 600 mg PO HS 03/16/25 03/16/25 History Cholecalciferol (Vitamin D3) 75 mcg PO HS 03/16/25 03/16/25 History [Vitamin D3 (3000 Iu)] DULoxetine HCL [Cymbalta] 60 mg PO DAILY 03/16/25 03/16/25 History Ibuprofen [Motrin] 800 mg PO BID PRN 03/16/25 03/16/25 History Magnesium Oxide [Magnesium] 500 mg PO HS 03/16/25 03/16/25 History Omeprazole [PriLOSEC] 40 mg PO HS 03/16/25 03/16/25 History Pregabalin [Lyrica] 150 mg PO TID 03/16/25 03/16/25 History buPROPion SR [Wellbutrin SR] 150 mg PO DAILY 03/16/25 03/16/25 History Allergies Allergy/AdvReac Type Severity Reaction Status Date / Time No Known Allergies Allergy Verified 03/16/25 08:45 Physical Exam Vitals: Vital Signs Temp Pulse Pulse Resp BP BP Pulse Ox 03/16/25 07:55 98.5 F 102 H 18 136/70 100 03/16/25 07:20 97.8 F 78 18 120/78 98 03/16/25 05:44 98.7 F 85 16 126/73 95 03/16/25 03:16 84 16 114/69 95 03/16/25 01:32 87 18 110/53 95 03/15/25 23:13 98.1 F 93 18 110/53 100 03/15/25 18:05 100.7 F H 107 H 16 124/80 96 Intake and Output 03/15/25 03/16/25 03/16/25 22:59 06:59 14:59 Intake Total 47.143 Balance 47.143 Intake: Intake, IV Titration 47.143 Amount Heparin Sod,Pork in 0.45% 47.143 NaCl 25,000 unit In 0.45 % NaCl 1 250ml.bag @ 18 UNITS/KG/HR 16.737 mls/hr IV .[id number] [facility] Rx#: [id number] Other: Weight 92.986 kg PHYSICAL EXAMINATION: Patient is lying in the bed comfortably, no acute distress, awake alert and oriented.. HEENT: Normocephalic. Neck is supple. Pupils reactive. Nostrils clear. Oral cavity is moist. Neck reveals no JVD, carotid bruits, or thyromegaly. CHEST EXAMINATION: Trachea is central. Symmetrical expansion. Lung narayan clear to auscultation and percussion. CARDIAC: Normal S1, S2 with no gallops. No murmurs ABDOMEN: Soft. Bowel sounds normal. No organomegaly. No abdominal bruits. Extremities: Left lower extremity redness and swelling and bruising like discoloration of the feet and tenderness. No clubbing or cyanosis Neurologically awake, alert, oriented x3 with well-coordinated movements. No focal deficits noted Skin: No rash or skin lesions. Psychiatric: Coperative. Nonsuicidal Musculoskeletal: No joint swelling or deformity. Normal range of motion. Results CBC & Chem 7: 03/15/25 22:10 03/15/25 22:10 Labs: Abnormal Lab Results - Last 24 Hours (Table) 03/15/25 03/15/25 03/15/25 Range/Units 22:10 22:10 23:05 Hgb 11.8 L (12.0-15.0) g/dL Hct 34.4 L (37.2-46.3) % Immature Gran # 0.05 H (0.00-0.04) 10*3/uL PT 14.9 H (10.0-12.5) sec INR 1.4 H (<1.2) APTT >200.0 H* (22.0-30.0) sec Potassium 3.1 L (3.5-5.1) mmol/L BUN 20 H (7-17) mg/dL ALT 38 H (4-34) U/L C-Reactive Protein 4.8 H (<1.0) mg/dL Total Protein 6.0 L (6.3-8.2) g/dL Urine Glucose (UA) (Negative) Urine Ketones (Negative) 03/16/25 03/16/25 Range/Units 01:32 04:09 Hgb (12.0-15.0) g/dL Hct (37.2-46.3) % Immature Gran # (0.00-0.04) 10*3/uL PT (10.0-12.5) sec INR (<1.2) APTT 54.3 H (22.0-30.0) sec Potassium (3.5-5.1) mmol/L BUN (7-17) mg/dL ALT (4-34) U/L C-Reactive Protein (<1.0) mg/dL Total Protein (6.3-8.2) g/dL Urine Glucose (UA) 4+ H (Negative) Urine Ketones Trace H (Negative) Thrombosis Risk Factor Assmnt - DVT/VTE Prophylaxis DVT/VTE Prophylaxis: Pharmacologic Prophylaxis ordered Assessment and Plan Assessment: Acute DVT of the left lower extremity Swelling and pain and bruising secondary to above History of right breast cancer status post mastectomy. Chemotherapy. Hypokalemia replaced. COPD GERD Osteoarthritis Obstructive sleep apnea on CPAP at home Hypothyroidism Chronic pain History of spinal stimulator placement Depression Obesity with BMI 40.0 DVT prophylax patient is already on heparin drip Plan: Patient will be continued on heparin drip and will be changed to oral anticoagulation. Continue pain management and home medications. GI prophylax with PPI and follow-up closely. Replace electrolytes.. Time with Patient: Greater than 30
[2025-03-16] MEDS: PREGABALIN 75 MG CAP PO SCH (15:13)
[2025-03-16] MEDS: POTASSIUM CHLORIDE ER 20 MEQ TAB.ER PO STA (15:13)
[2025-03-16] MEDS: CALCIUM CARBONATE 500 MG CHEWABLE PO SCH (20:58)
[2025-03-16] MEDS: PANTOPRAZOLE 40 MG TABLET PO SCH (20:59)
[2025-03-16] MEDS: LACTOBACILLUS ACIDOPHILUS/PECT 1 EACH CAPSULE PO SCH (20:59)
[2025-03-16] MEDS: MAGNESIUM OXIDE 400 MG TAB PO SCH (20:59)
[2025-03-16] MEDS: LORATADINE 10 MG TAB PO SCH (20:59)
[2025-03-16] MEDS: MONTELUKAST 10 MG TAB PO SCH (21:00)
[2025-03-16] MEDS: CHOLECALCIFEROL 25 MCG (1000 IU) TABLET PO SCH (21:00)
[2025-03-16] MEDS: tiZANidine 4 MG TAB PO SCH (21:47)
[2025-03-17] MEDS: HEPARIN SODIUM 1,000 UN/ML (10ML VL) IV PRN (08:20)
[2025-03-17 08:24] LABS: HCT 32.5 % (37.2-46.3); HGB 10.7 g/dL (12.0-15.0); MCH 28.2 pg (27.0-32.0); MCHC 32.9 g/dL (32.0-37.0); MCV 85.8 FL (80.0-97.0); Mean Platelet Volume 10.6 FL (9.5-12.2); NRBC Per 100 WBC 0 X 10*3/uL (0.00-0.01); Platelet Count 158 X 10*3/uL (140-440); RBC 3.79 X 10*6/uL (4.10-5.20); RDW 13.7 % (11.5-14.5); WBC 4.79 X 10*3/uL (4.50-10.00)
[2025-03-17 08:25] LABS: Basophils # (A) 0.01 X 10*3/uL (0.00-0.10); Basophils % (A) 0.2 %; Eosinophils # (A) 0.19 X 10*3/uL (0.04-0.35); Lymphocytes # (A) 0.88 X 10*3/uL (0.90-5.00); Lymphocytes % (A) 18.4 %; Monocytes # (A) 0.51 X 10*3/uL (0.20-1.00); Monocytes % (A) 10.6 %; Neutrophils # (A) 3.16 X 10*3/uL (1.80-7.70)
[2025-03-17 10:34] LABS: ALT 30 U/L (8-44); AST 26 U/L (13-35); Albumin 3.4 g/dL (3.8-4.9); Albumin/Globulin Ratio 1.89 Ratio (1.60-3.17); Alkaline Phosphatase 91 U/L (41-126); BUN/Creat Ratio 24.75 Ratio (12.00-20.00); Blood Urea Nitrogen 19.8 mg/dL (9.0-27.0); Calcium 8.3 mg/dL (8.7-10.3); Carbon Dioxide 21.4 mmol/L (21.6-31.8); Chloride 109 mmol/L (96-109); Globulin 1.8 g/dL (1.6-3.3); Glucose 100 mg/dL (70-110); Magnesium 2.1 mg/dL (1.5-2.4); Phosphorus 2.8 mg/dL (2.4-5.1); Sodium 142 mmol/L (135-145); Total Bilirubin 0.3 mg/dL (0.3-1.2); Total Protein 5.2 g/dL (6.2-8.2)
[2025-03-18 12:01] LABS: Basophils # (A) 0.02 10*3/uL (0.00-0.10); Basophils % (A) 0.5 %; Eosinophils # (A) 0.18 10*3/uL (0.04-0.35); Eosinophils % (A) 4.3 %; HCT 33.2 % (37.2-46.3); HGB 10.7 g/dL (12.0-15.0); Lymphocytes # (A) 1.03 10*3/uL (0.90-5.00); Lymphocytes % (A) 24.3 %; MCH 28.4 pg (27.0-32.0); MCHC 32.2 g/dL (32.0-37.0); Mean Platelet Volume 10.3 fL (9.5-12.2); Monocytes # (A) 0.54 10*3/uL (0.20-1.00); Monocytes % (A) 12.8 %; Neutrophils # (A) 2.43 10*3/uL (1.80-7.70); Neutrophils % (A) 57.4 %; Platelet Count 167 10*3/uL (140-440); RBC 3.77 10*6/uL (4.10-5.20); RDW 13.6 % (11.5-14.5); WBC 4.23 10*3/uL (4.50-10.00)
[2025-03-18 12:08] LABS: MCV 88.1 fL (80.0-97.0)
[2025-03-18 12:59] LABS: African American GFR (CKD) 88 (>60 ml/min/1.73 sqM); Anion Gap 8 mmol/L; Blood Urea Nitrogen 18 mg/dL (7-17); Calcium 9.1 mg/dL (8.4-10.2); Carbon Dioxide 26 mmol/L (22-30); Chloride 109 mmol/L (98-107); Glucose 100 mg/dL (74-99); Non-African American GFR(CKD) 76 (>60 ml/min/1.73 sqM); Potassium 3.9 mmol/L (3.5-5.1); Sodium 143 mmol/L (137-145)
--- NOTE | 2025-03-18 13:38 | P.CRDCN ---
History of Present Illness Consult date: 03/18/25 History of present illness: HISTORY OF PRESENTING ILLNESS: 55-year-old female known to Dr. Read prior history of breast cancer status post right breast removal, chemotherapy. Last chemotherapy was in 2023 and since then she has been in remission. She also has history of GERD, osteoarthritis, obstructive sleep apnea, spinal stimulator, depression. She reports that previously she has had venous stenting bilateral common Elik veins done by Dr. Read. She denies any prior history of DVT PE or any family history of DVT. She does report family history of CHF in mother. She presented to the hospital because of increased worsening swelling in the left lower extremity over the last 5 to 6 days which has gradually got worse. She denies any recent injuries, surgeries or any prolonged immobilization or any recent long travel. REVIEW OF SYSTEMS: 14 point review of system is negative except what is mentioned above in HPI. PHYSICAL EXAMINATION: Neck: Brisk carotid upstroke, no jugular venous distention. Lungs: Clear to auscultation. Heart: Regular rate and rhythm, S1-S2, , no murmur or rub. Abdomen: Soft nontender, positive bowel sounds. Extremities: 2+ swelling in left lower extremity with subcutaneous edema and tightness in the left lower leg Neuro: Alert, oritented, no focal deficits. Detailed neuro exam was not performed. 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 Feel free to reach out in case of any followup questions. Past Medical History Past Medical History: Cancer, COPD, GERD/Reflux, Osteoarthritis (OA), Sleep Apnea/CPAP/BIPAP, Thyroid Disorder Additional Past Medical History / Comment(s): breast cancer. Back pain. Heel Sp urs. Uses CPAP. Bunions. Migraines rarely. History of Any Multi-Drug Resistant Organisms: None Reported Past Surgical History: Breast Surgery, Orthopedic Surgery Additional Past Surgical History / Comment(s): Pain injection procedures, colonoscopy, bilateral carpal tunnel, cubital tunnel left elbow, angioplasty with bilateral stents in legs, spinal stimulator placed, right breast biopsy. right mastectomy with lympnode removal Past Anesthesia/Blood Transfusion Reactions: No Reported Reaction, Motion Sickness, Postoperative Nausea & Vomiting (PONV) Additional Past Anesthesia/Blood Transfusion Reaction / Comment(s): "Trouble getting tube in once, tooth got chipped, no problems since." Past Psychological History: Depression Additional Psychological History / Comment(s): Mild depression. Smoking Status: Never smoker Past Alcohol Use History: None Reported Past Drug Use History: None Reported - Past Family History Mother Family Medical History: No Reported History Father Family Medical History: Pulmonary Embolus Sister(s) Family Medical History: Pulmonary Embolus Medications and Allergies Home Medications Medication Instructions Recorded Confirmed Type Albuterol Inhaler [Ventolin Hfa 2 puff INHALATION RT-Q4H PRN 07/17/17 03/16/25 History Inhaler] tiZANidine [Zanaflex] 4 mg PO HS 09/22/19 03/16/25 History Loratadine [Claritin] 10 mg PO HS 07/09/23 03/16/25 History Montelukast [Singulair] 10 mg PO HS 07/09/23 03/16/25 History L.acidoph,Paracasei, B.lactis 1 cap PO HS 09/18/23 03/16/25 History [Probiotic] Anastrozole [Arimidex] 1 mg PO DAILY 03/16/25 03/16/25 History Calcium Carbonate [Calcium] 600 mg PO HS 03/16/25 03/16/25 History Cholecalciferol (Vitamin D3) 75 mcg PO HS 03/16/25 03/16/25 History [Vitamin D3 (3000 Iu)] DULoxetine HCL [Cymbalta] 60 mg PO DAILY 03/16/25 03/16/25 History Ibuprofen [Motrin] 800 mg PO BID PRN 03/16/25 03/16/25 History Magnesium Oxide [Magnesium] 500 mg PO HS 03/16/25 03/16/25 History Omeprazole [PriLOSEC] 40 mg PO HS 03/16/25 03/16/25 History Pregabalin [Lyrica] 150 mg PO TID 03/16/25 03/16/25 History buPROPion SR [Wellbutrin SR] 150 mg PO DAILY 03/16/25 03/16/25 History Allergies Allergy/AdvReac Type Severity Reaction Status Date / Time No Known Allergies Allergy Verified 03/16/25 08:45 Physical Exam Vitals: Vital Signs Temp Pulse Resp BP Pulse Ox 03/18/25 13:17 97.6 F 82 16 104/71 96 03/18/25 07:50 98.2 F 68 16 92/56 96 03/18/25 02:00 98.1 F 71 16 95/58 97 03/17/25 20:00 98.7 F 74 16 141/70 97 Intake and Output 03/17/25 03/18/25 03/18/25 22:59 06:59 14:59 Intake Total 2876 569 4661.000 Balance 4251 478 9631.000 Intake: Intake, IV Titration 250.000 Amount Heparin Sod,Pork in 0.45% 250.000 NaCl 25,000 unit In 0.45 % NaCl 1 250ml.bag @ 18 UNITS/KG/HR 16.737 mls/hr IV .[id number] [facility] Rx#: [id number] Oral [id number] Other: Voiding Method Toilet # Voids 2 3 5 Results 03/18/25 06:50 03/18/25 06:50 Coagulation 03/17/25 03/18/25 Range/Units 14:40 06:50 APTT 64.6 H 86.4 H (22.0-30.0) sec CBC 03/18/25 Range/Units 06:50 WBC 4.23 L (4.50-10.00) 10*3/uL RBC 3.77 L (4.10-5.20) 10*6/uL Hgb 10.7 L (12.0-15.0) g/dL Hct 33.2 L (37.2-46.3) % Plt Count 167 (140-440) 10*3/uL Comprehensive Metabolic Panel 03/18/25 Range/Units 06:50 Sodium 143 (137-145) mmol/L Potassium 3.9 (3.5-5.1) mmol/L Chloride 109 H (98-107) mmol/L Carbon Dioxide 26 (22-30) mmol/L BUN 18 H (7-17) mg/dL Creatinine 0.86 (0.52-1.04) mg/dL Glucose 100 H (74-99) mg/dL Calcium 9.1 (8.4-10.2) mg/dL Current Medications Generic Name Dose Route Start Last Admin Trade Name Freq PRN Reason Stop Dose Admin Acetaminophen 650 mg 03/16/25 01:28 03/16/25 15:13 Acetaminophen Tab 325 Mg Tab PO 650 mg Q6HR PRN Administration Mild Pain or Fever > 100.5 Albuterol Sulfate 2.5 mg 03/16/25 10:45 Albuterol Nebulized 2.5 Mg/3 Ml INHALATION RT-Q4H PRN Shortness Of Breath Anastrozole 1 mg 03/16/25 10:45 03/18/25 08:51 Anastrozole 1 Mg Tab PO 1 mg DAILY ROWAN Administration Bupropion HCl 150 mg 03/16/25 10:45 03/18/25 08:51 Bupropion Sr 150 Mg Tablet.Er PO 150 mg DAILY ROWAN Administration Calcium Carbonate/Glycine 500 mg 03/16/25 21:00 03/17/25 21:50 Calcium Carbonate 500 Mg Chewable PO 500 mg HS ROWAN Administration Cholecalciferol 75 mcg 03/16/25 21:00 03/17/25 21:51 Cholecalciferol 25 Mcg (1000 Iu) Tablet PO 75 mcg HS ROWAN Administration Duloxetine HCl 60 mg 03/16/25 10:45 03/18/25 07:52 Duloxetine Hcl 60 Mg Capsule.Dr PO Not Given DAILY ROWAN Heparin Sodium (Porcine) 0 unit 03/15/25 21:54 03/17/25 08:20 Heparin Sodium 1,000 Un/Ml (10ml Vl) IV 3,719 unit PER PROTOCOL PRN Administration Low PTT Protocol Heparin Sodium/Sodium Chloride 250 mls @ 16.737 mls/hr 03/15/25 22:00 03/18/25 08:51 25,000 unit/ Sodium Chloride IV 14 units/kg/hr .[id number] ROWAN 13.018 mls/hr Administration Protocol 18 UNITS/KG/HR Ibuprofen 800 mg 03/16/25 10:45 03/17/25 14:01 Ibuprofen 800 Mg Tab PO 800 mg BID PRN Administration Pain Lactobacillus Acidophilus 1 each 03/16/25 21:00 03/17/25 21:51 Lactobacillus Acidophilus/Pect 1 Each Capsule PO 1 each HS ROWAN Administration Loratadine 10 mg 03/16/25 21:00 03/17/25 21:51 Loratadine 10 Mg Tab PO 10 mg HS ROWAN Administration Magnesium Oxide 400 mg 03/16/25 21:00 03/17/25 21:50 Magnesium Oxide 400 Mg Tab PO 400 mg HS ROWAN Administration Montelukast Sodium 10 mg 03/16/25 21:00 03/17/25 21:51 Montelukast 10 Mg Tab PO 10 mg HS ROWAN Administration Morphine Sulfate 4 mg 03/16/25 01:28 Morphine Sulfate 4 Mg/Ml Syringe IV Q4HR PRN Severe Pain (Scale 7 to 10) Naloxone HCl 0.2 mg 03/16/25 01:28 Naloxone 0.4 Mg/Ml 1 Ml Vial IV Q2M PRN Opioid Reversal Ondansetron HCl 4 mg 03/16/25 01:28 Ondansetron 4 Mg/2 Ml Vial IVP Q8HR PRN Nausea And Vomiting Pantoprazole Sodium 40 mg 03/16/25 21:00 03/17/25 21:51 Pantoprazole 40 Mg Tablet PO 40 mg HS ROWAN Administration Pregabalin 150 mg 03/16/25 16:00 03/18/25 08:51 Pregabalin 75 Mg Cap PO 150 mg TID ROWAN Administration Tizanidine HCl 4 mg 03/16/25 21:00 03/17/25 21:51 Tizanidine 4 Mg Tab PO 4 mg HS ROWAN Administration Intake and Output 03/17/25 03/18/25 03/18/25 22:59 06:59 14:59 Intake Total 9252 379 1382.000 Balance 8878 718 3919.000 Intake: Intake, IV Titration 250.000 Amount Heparin Sod,Pork in 0.45% 250.000 NaCl 25,000 unit In 0.45 % NaCl 1 250ml.bag @ 18 UNITS/KG/HR 16.737 mls/hr IV .[id number] [facility] Rx#: [id number] Oral [id number] Other: Voiding Method Toilet # Voids 2 3 5 03/18/25 06:50 03/18/25 06:50
[2025-03-18] MEDS: SENNOSIDES 8.6 MG TAB PO PRN (18:34)
[2025-03-19 09:57] LABS: BUN/Creat Ratio 16.78 Ratio (12.00-20.00); Blood Urea Nitrogen 15.1 mg/dL (9.0-27.0); Chloride 108 mmol/L (96-109); Glucose 96 mg/dL (70-110); Potassium 3.8 mmol/L (3.5-5.5); Sodium 143 mmol/L (135-145)
[2025-03-19 09:58] LABS: Carbon Dioxide 23.9 mmol/L (21.6-31.8)
[2025-03-19 10:00] LABS: Basophils # (A) 0.03 X 10*3/uL (0.00-0.10); Basophils % (A) 0.6 %; Eosinophils % (A) 3.7 %; HCT 34.5 % (37.2-46.3); HGB 10.9 g/dL (12.0-15.0); Lymphocytes # (A) 1.28 X 10*3/uL (0.90-5.00); Lymphocytes % (A) 23.5 %; MCH 27.5 pg (27.0-32.0); MCHC 31.6 g/dL (32.0-37.0); MCV 87.1 FL (80.0-97.0); Mean Platelet Volume 10.3 FL (9.5-12.2); Monocytes # (A) 0.65 X 10*3/uL (0.20-1.00); Monocytes % (A) 11.9 %; NRBC Per 100 WBC 0 X 10*3/uL (0.00-0.01); Neutrophils # (A) 3.24 X 10*3/uL (1.80-7.70); Neutrophils % (A) 59.4 %; Platelet Count 170 X 10*3/uL (140-440); RBC 3.96 X 10*6/uL (4.10-5.20); RDW 13.5 % (11.5-14.5); WBC 5.45 X 10*3/uL (4.50-10.00)
[2025-03-19 10:14] LABS: LDL Cholesterol,Calculated 67.6 mg/dL (0.0-131.0); Magnesium 2.1 mg/dL (1.5-2.4)
--- NOTE | 2025-03-19 12:40 | P.PN ---
Subjective Progress Note Date: 03/19/25 HISTORY OF PRESENTING ILLNESS: 55-year-old female known to Dr. Read prior history of breast cancer status post right breast removal, chemotherapy. Last chemotherapy was in 2023 and since then she has been in remission. She also has history of GERD, osteoarthritis, obstructive sleep apnea, spinal stimulator, depression. She reports that previously she has had venous stenting bilateral common Elik veins done by Dr. Read. She denies any prior history of DVT PE or any family history of DVT. She does report family history of CHF in mother. She presented to the hospital because of increased worsening swelling in the left lower extremity over the last 5 to 6 days which has gradually got worse. She denies any recent injuries, surgeries or any prolonged immobilization or any recent long travel. Progress note 03/19/2025 Denies any chest pain chest pressure shortness of breath BP 95/54, heart rate 86 bpm Reports left leg heaviness with some burning with some erythema as compared to yesterday. PHYSICAL EXAMINATION: Neck: Brisk carotid upstroke, no jugular venous distention. Lungs: Clear to auscultation. Heart: Regular rate and rhythm, S1-S2, , no murmur or rub. Abdomen: Soft nontender, positive bowel sounds. Extremities: 2+ swelling in left lower extremity with subcutaneous edema and tightness in the left lower leg Neuro: Alert, oritented, no focal deficits. Detailed neuro exam was not performed. 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 after midnight Objective - Vital Signs Vital signs: Vital Signs Temp 98.1 F 03/19/25 12:16 Pulse 86 03/19/25 12:16 Resp 16 03/19/25 12:16 BP 95/54 03/19/25 12:16 Pulse Ox 96 03/19/25 12:16 FiO2 Intake & Output 03/18/25 03/19/25 03/19/25 18:59 06:59 18:59 Intake Total 2290.000 179.955 3977 Balance 2290.000 658.545 7046 Intake: Intake, IV Titration 250.000 247.342 Amount Heparin Sod,Pork in 0.45% 250.000 247.342 NaCl 25,000 unit In 0.45 % NaCl 1 250ml.bag @ 18 UNITS/KG/HR 16.737 mls/hr IV .[id number] [facility] Rx#: [id number] Oral [id number] [id number] Other: Voiding Method Toilet # Voids 5 2 5 - Labs CBC & Chem 7: 03/19/25 05:24 03/19/25 05:24 Labs: Abnormal Lab Results - Last 24 Hours (Table) 03/18/25 03/18/25 03/18/25 Range/Units 06:50 06:50 14:25 RBC (4.10-5.20) X 10*6/uL Hgb (12.0-15.0) g/dL Hct (37.2-46.3) % MCHC (32.0-37.0) g/dL Immature Gran # (0.00-0.04) X 10*3/uL APTT 61.1 H (22.0-30.0) sec Chloride 109 H (98-107) mmol/L BUN 18 H (7-17) mg/dL Glucose 100 H (74-99) mg/dL Triglycerides 219.00 H (0.00-149.00) mg/dL VLDL Cholesterol, Calc 43.80 H (5.00-40.00) mg/dL HDL Cholesterol 28.60 L (40.00-60.00) mg/dL 03/19/25 03/19/25 Range/Units 05:19 05:24 RBC 3.96 L (4.10-5.20) X 10*6/uL Hgb 10.9 L (12.0-15.0) g/dL Hct 34.5 L (37.2-46.3) % MCHC 31.6 L (32.0-37.0) g/dL Immature Gran # 0.05 H (0.00-0.04) X 10*3/uL APTT 49.9 H (22.0-30.0) sec Chloride (98-107) mmol/L BUN (7-17) mg/dL Glucose (74-99) mg/dL Triglycerides (0.00-149.00) mg/dL VLDL Cholesterol, Calc (5.00-40.00) mg/dL HDL Cholesterol (40.00-60.00) mg/dL
--- NOTE | 2025-03-19 13:59 | P.PN ---
Subjective Progress Note Date: 03/19/25 55-year-old female with a past medical history of right breast cancer status postsurgery, COPD, GERD, osteoarthritis, obstructive sleep apnea and hypothyroidism, chronic pain, spinal stimulator placement and depression. Patient presents to ER with complaints of left lower extremity swelling and pain and bruising started 2 days prior to admission. Patient has pain with walking and noticed that her foot appears dark in color. Otherwise denied any chest pain or shortness of breath. No prior history of DVT or PE. Patient received chemotherapy about 2 months ago. Left lower extremity duplex scan showedDVT in the left lower extremity EKG sinus rhythm CT angiogram of the chest showed no PE. Right mastectomy. Skin thickening of the right breast correlate for cellulitis. Laboratory data showed WBC 8.4 hemoglobin 11.8 and platelets 151 Sodium 137 potassium 3.1 chloride 102 bicarb is 25 BUN 20 and creatinine 0.79 and blood sugar 89 and proBNP 37 and troponin less than 0.012 Urinalysis is negative for infection. Objective - Vital Signs Vital signs: Vital Signs Temp 98.2 F 03/17/25 11:59 Pulse 83 03/17/25 11:59 Resp 17 03/17/25 11:59 BP 124/71 03/17/25 11:59 Pulse Ox 96 03/17/25 11:59 FiO2 Intake & Output 03/16/25 03/17/25 03/17/25 18:59 06:59 18:59 Intake Total 202.857 590 179.214 Balance 202.857 590 179.214 Weight 92.986 kg Intake: Intake, IV Titration 202.857 179.214 Amount Heparin Sod,Pork in 0.45% 202.857 179.214 NaCl 25,000 unit In 0.45 % NaCl 1 250ml.bag @ 18 UNITS/KG/HR 16.737 mls/hr [facility] .[id number] [facility] Rx#: [id number] Oral 590 Other: Voiding Method Toilet Toilet # Voids 2 2 - Exam Patient is lying in the bed comfortably, no acute distress, awake alert and oriented.. HEENT: Normocephalic. Neck is supple. Pupils reactive. Nostrils clear. Oral cav ity is moist. Neck reveals no JVD, carotid bruits, or thyromegaly. CHEST EXAMINATION: Trachea is central. Symmetrical expansion. Lung narayan clear to auscultation and percussion. CARDIAC: Normal S1, S2 with no gallops. No murmurs ABDOMEN: Soft. Bowel sounds normal. No organomegaly. No abdominal bruits. Extremities: Left lower extremity redness and swelling and bruising like discoloration of the feet and tenderness. No clubbing or cyanosis Neurologically awake, alert, oriented x3 with well-coordinated movements. No focal deficits noted Skin: No rash or skin lesions. Psychiatric: Coperative. Nonsuicidal Musculoskeletal: No joint swelling or deformity. Normal range of motion. - Labs CBC & Chem 7: 03/19/25 05:24 03/19/25 05:24 Labs: Abnormal Lab Results - Last 24 Hours (Table) 03/17/25 03/17/25 03/17/25 Range/Units 06:11 06:11 06:11 RBC 3.79 L (4.10-5.20) X 10*6/uL Hgb 10.7 L (12.0-15.0) g/dL Hct 32.5 L (37.2-46.3) % Lymphocytes # 0.88 L (0.90-5.00) X 10*3/uL APTT 38.7 H (22.0-30.0) sec Carbon Dioxide 21.4 L (21.6-31.8) mmol/L BUN/Creatinine Ratio 24.75 H (12.00-20.00) Ratio Calcium 8.3 L (8.7-10.3) mg/dL Total Protein 5.2 L (6.2-8.2) g/dL Albumin 3.4 L (3.8-4.9) g/dL Assessment and Plan Assessment: Acute DVT of the left lower extremity Swelling and pain and bruising secondary to above History of right breast cancer status post mastectomy. Chemotherapy. Hypokalemia replaced. COPD GERD Osteoarthritis Obstructive sleep apnea on CPAP at home Hypothyroidism Chronic pain History of spinal stimulator placement Depression Obesity with BMI 40.0 DVT prophylax patient is already on heparin drip Plan: Patient will be continued on heparin drip and will be changed to oral anticoagul ation. Continue pain management and home medications. GI prophylax with PPI and follow-up closely. Replace electrolytes..
--- NOTE | 2025-03-19 14:02 | P.PN ---
Subjective Progress Note Date: 03/18/25 55-year-old female with a past medical history of right breast cancer status postsurgery, COPD, GERD, osteoarthritis, obstructive sleep apnea and hypothyroidism, chronic pain, spinal stimulator placement and depression. Patient presents to ER with complaints of left lower extremity swelling and pain and bruising started 2 days prior to admission. Patient has pain with walking and noticed that her foot appears dark in color. Otherwise denied any chest pain or shortness of breath. No prior history of DVT or PE. Patient received chemotherapy about 2 months ago. Left lower extremity duplex scan showedDVT in the left lower extremity EKG sinus rhythm CT angiogram of the chest showed no PE. Right mastectomy. Skin thickening of the right breast correlate for cellulitis. Laboratory data showed WBC 8.4 hemoglobin 11.8 and platelets 151 Sodium 137 potassium 3.1 chloride 102 bicarb is 25 BUN 20 and creatinine 0.79 and blood sugar 89 and proBNP 37 and troponin less than 0.012 Urinalysis is negative for infection. 03/18/2025 Patient is seen and evaluated in room at bedside; resting in bed; reports continued pain, swelling and stiffness left lower extremity Vital signs are reviewed and are stable Lab review shows WBC of 4.2, hemoglobin of 10.7 and platelet count of 167, sodium 143, potassium 3.9, BUN/creatinine of 18/0.86 -Patient remains on IV heparin for extensive left lower extremity DVT extending from popliteal vein to CFV - Cardiology is consulted; patient follows up with Dr. Read as outpatient for PVD - Will consult cardiology for evaluation for possible thrombectomy Objective - Vital Signs Vital signs: Vital Signs Temp 98.2 F 03/18/25 07:50 Pulse 68 03/18/25 07:50 Resp 16 03/18/25 07:50 BP 92/56 03/18/25 07:50 Pulse Ox 96 03/18/25 07:50 FiO2 Intake & Output 03/17/25 03/18/25 03/18/25 18:59 06:59 18:59 Intake Total 1330.000 590 730.000 Balance 1330.000 590 730.000 Intake: Intake, IV Titration 250.000 250.000 Amount Heparin Sod,Pork in 0.45% 250.000 250.000 NaCl 25,000 unit In 0.45 % NaCl 1 250ml.bag @ 18 UNITS/KG/HR 16.737 mls/hr IV .[id number] [facility] Rx#: [id number] Oral 1080 [id number] Other: Voiding Method Toilet # Voids 2 3 - Exam Patient is lying in the bed comfortably, no acute distress, awake alert and oriented.. HEENT: Normocephalic. Neck is supple. Pupils reactive. Nostrils clear. Oral cavity is moist. Neck reveals no JVD, carotid bruits, or thyromegaly. CHEST EXAMINATION: Trachea is central. Symmetrical expansion. Lung narayan clear to auscultation and percussion. CARDIAC: Normal S1, S2 with no gallops. No murmurs ABDOMEN: Soft. Bowel sounds normal. No organomegaly. No abdominal bruits. Extremities: Left lower extremity redness and swelling and bruising like discoloration of the feet and tenderness. No clubbing or cyanosis Neurologically awake, alert, oriented x3 with well-coordinated movements. No focal deficits noted Skin: No rash or skin lesions. Psychiatric: Coperative. Nonsuicidal Musculoskeletal: No joint swelling or deformity. Normal range of motion. - Labs CBC & Chem 7: 03/19/25 05:24 03/19/25 05:24 Labs: Abnormal Lab Results - Last 24 Hours (Table) 03/17/25 03/18/25 Range/Units 14:40 06:50 APTT 64.6 H 86.4 H (22.0-30.0) sec Assessment and Plan Assessment: Acute DVT of the left lower extremity Swelling and pain and bruising secondary to above History of right breast cancer status post mastectomy. Chemotherapy. Hypokalemia replaced. COPD GERD Osteoarthritis Obstructive sleep apnea on CPAP at home Hypothyroidism Chronic pain History of spinal stimulator placement Depression Obesity with BMI 40.0 DVT prophylax patient is already on heparin drip Plan: Patient will be continued on heparin drip and will be changed to oral anticoagulation. Continue pain management and home medications. GI prophylax with PPI and follow-up closely. Replace electrolytes..
--- NOTE | 2025-03-19 14:04 | P.PN ---
Subjective Progress Note Date: 03/19/25 55-year-old female with a past medical history of right breast cancer status postsurgery, COPD, GERD, osteoarthritis, obstructive sleep apnea and hypothyroidism, chronic pain, spinal stimulator placement and depression. Patient presents to ER with complaints of left lower extremity swelling and pain and bruising started 2 days prior to admission. Patient has pain with walking and noticed that her foot appears dark in color. Otherwise denied any chest pain or shortness of breath. No prior history of DVT or PE. Patient received chemotherapy about 2 months ago. Left lower extremity duplex scan showedDVT in the left lower extremity EKG sinus rhythm CT angiogram of the chest showed no PE. Right mastectomy. Skin thickening of the right breast correlate for cellulitis. Laboratory data showed WBC 8.4 hemoglobin 11.8 and platelets 151 Sodium 137 potassium 3.1 chloride 102 bicarb is 25 BUN 20 and creatinine 0.79 and blood sugar 89 and proBNP 37 and troponin less than 0.012 Urinalysis is negative for infection. 03/18/2025 Patient is seen and evaluated in room at bedside; resting in bed; reports continued pain, swelling and stiffness left lower extremity Vital signs are reviewed and are stable Lab review shows WBC of 4.2, hemoglobin of 10.7 and platelet count of 167, sodium 143, potassium 3.9, BUN/creatinine of 18/0.86 -Patient remains on IV heparin for extensive left lower extremity DVT extending from popliteal vein to CFV - Cardiology is consulted; patient follows up with Dr. Read as outpatient for PVD - Will consult cardiology for evaluation for possible thrombectomy 03/19/2025 Patient seen resting in bed; reports worsening pain and tightness in the left lower extremity; remains on IV heparin infusion Vital signs are reviewed and stable temperature 98.1, pulse 86, respirations 16 and blood pressure of 95/54 Labs are reviewed WBC 5.45, hemoglobin of 10.9 and platelet count 170, sodium 143, potassium 3.8, BUN/creatinine 15.1/0.9 -Patient remains on IV heparin for extensive left lower extremity DVT - Has been evaluated by cardiology for possible vein intervention with possible thrombectomy tomorrow morning - Plan to transition to oral antibiotics once cleared by cardiology Objective - Vital Signs Vital signs: Vital Signs Temp 97.5 F L 03/19/25 07:46 Pulse 69 03/19/25 07:46 Resp 16 03/19/25 07:46 BP 92/54 03/19/25 07:46 Pulse Ox 99 03/19/25 07:46 FiO2 Intake & Output 03/18/25 03/19/25 03/19/25 18:59 06:59 18:59 Intake Total 2290.000 837.342 Balance 2290.000 837.342 Intake: Intake, IV Titration 250.000 247.342 Amount Heparin Sod,Pork in 0.45% 250.000 247.342 NaCl 25,000 unit In 0.45 % NaCl 1 250ml.bag @ 18 UNITS/KG/HR 16.737 mls/hr IV .[id number] [facility] Rx#: [id number] Oral 2040 590 Other: Voiding Method Toilet # Voids 5 2 - Exam Patient is lying in the bed comfortably, no acute distress, awake alert and oriented.. HEENT: Normocephalic. Neck is supple. Pupils reactive. Nostrils clear. Oral cavity is moist. Neck reveals no JVD, carotid bruits, or thyromegaly. CHEST EXAMINATION: Trachea is central. Symmetrical expansion. Lung narayan clear to auscultation and percussion. CARDIAC: Normal S1, S2 with no gallops. No murmurs ABDOMEN: Soft. Bowel sounds normal. No organomegaly. No abdominal bruits. Extremities: Left lower extremity redness and swelling and bruising like discoloration of the feet and tenderness. No clubbing or cyanosis Neurologically awake, alert, oriented x3 with well-coordinated movements. No focal deficits noted Skin: No rash or skin lesions. Psychiatric: Coperative. Nonsuicidal Musculoskeletal: No joint swelling or deformity. Normal range of motion. - Labs CBC & Chem 7: 03/19/25 05:24 03/19/25 05:24 Labs: Abnormal Lab Results - Last 24 Hours (Table) 03/18/25 03/18/25 03/18/25 Range/Units 06:50 06:50 14:25 WBC 4.23 L (4.50-10.00) 10*3/uL RBC 3.77 L (4.10-5.20) 10*6/uL Hgb 10.7 L (12.0-15.0) g/dL Hct 33.2 L (37.2-46.3) % APTT 61.1 H (22.0-30.0) sec Chloride 109 H (98-107) mmol/L BUN 18 H (7-17) mg/dL Glucose 100 H (74-99) mg/dL 03/19/25 Range/Units 05:19 WBC (4.50-10.00) 10*3/uL RBC (4.10-5.20) 10*6/uL Hgb (12.0-15.0) g/dL Hct (37.2-46.3) % APTT 49.9 H (22.0-30.0) sec Chloride (98-107) mmol/L BUN (7-17) mg/dL Glucose (74-99) mg/dL Assessment and Plan Assessment: Acute DVT of the left lower extremity Swelling and pain and bruising secondary to above History of right breast cancer status post mastectomy. Chemotherapy. Hypokalemia replaced. COPD GERD Osteoarthritis Obstructive sleep apnea on CPAP at home Hypothyroidism Chronic pain History of spinal stimulator placement Depression Obesity with BMI 40.0 DVT prophylax patient is already on heparin drip Plan: Patient will be continued on heparin drip and will be changed to oral anticoagulation. Continue pain management and home medications. GI prophylax with PPI and follow-up closely. Replace electrolytes..
--- NOTE | 2025-03-20 11:10 | P.PN ---
Subjective HISTORY OF PRESENTING ILLNESS: 55-year-old female known to Dr. Read prior history of breast cancer status post right breast removal, chemotherapy. Last chemotherapy was in 2023 and since then she has been in remission. She also has history of GERD, osteoarthritis, obstructive sleep apnea, spinal stimulator, depression. She reports that previo usly she has had venous stenting bilateral common E[place] veins done by Dr. Read. She denies any prior history of DVT PE or any family history of DVT. She does report family history of CHF in mother. She presented to the hospital because of increased worsening swelling in the left lower extremity over the last 5 to 6 days which has gradually got worse. She denies any recent injuries, surgeries or any prolonged immobilization or any recent long travel. 03/19/2025 Denies any chest pain chest pressure shortness of breath BP 95/54, heart rate 86 bpm Reports left leg heaviness with some burning with some erythema as compared to yesterday. 03/20/2025 Patient seen and examined resting comfortably in bed in no acute distress. Continues to complain of left lower extremity discomfort. Blood pressure 114/64 heart rate 78 afebrile maintaining oxygen saturation on room air. PHYSICAL EXAMINATION: Neck: Brisk carotid upstroke, no jugular venous distention. Lungs: Clear to auscultation. Heart: Regular rate and rhythm, S1-S2, , no murmur or rub. Abdomen: Soft nontender, positive bowel sounds. Extremities: 2+ swelling in left lower extremity with subcutaneous edema and tightness in the left lower leg Neuro: Alert, oriented, no focal deficits. Detailed neuro exam was not performed. 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 Read, time to be determined. Patient will remain NPO. IV heparin infusing. Further recommendations to follow based upon clinical course. Nurse Practitioner note has been reviewed, I agree with a documented findings and plan of care. Patient was seen and examined. Objective - Vital Signs Vital signs: Vital Signs Temp 98.2 F 03/20/25 07:18 Pulse 78 03/20/25 07:18 Resp 16 03/20/25 07:18 BP 114/64 03/20/25 07:18 Pulse Ox 96 03/20/25 07:18 FiO2 Intake & Output 03/19/25 03/20/25 03/20/25 18:59 06:59 18:59 Intake Total 1979 238.663 Balance 1979 238.663 Intake: Intake, IV Titration 238.663 Amount Heparin Sod,Pork in 0.45% 238.663 NaCl 25,000 unit In 0.45 % NaCl 1 250ml.bag @ 18 UNITS/KG/HR 16.737 mls/hr IV .[id number] [facility] Rx#: [id number] Oral 1979 Other: # Voids 5 3 - Labs CBC & Chem 7: 03/19/25 05:24 03/19/25 05:24 Labs: Abnormal Lab Results - Last 24 Hours (Table) 03/20/25 Range/Units 06:01 APTT 54.5 H (22.0-30.0) sec
--- NOTE | 2025-03-20 17:05 | CA ---
Transthoracic Echo Report Name: Aleshia Swenson Age: 55 Gender: F : 1970 Exam Date: 03/20/2025 14:29 Exam Location: [place] [facility] Ht (in): 60 Wt (lb): 205 Ordering Physician: Federico Virgen MD ([id number]) Attending/Referring Phys: Autism Tutor Sis Guthrie RDCS Procedure CPT: Indications: Dyspnea, Angina pectoris Cardiac Hx: Technical Quality: Good Contrast 1: Total Dose (mL): Contrast 2: Total Dose (mL): MEASUREMENTS (Male / Female) Normal Values 2D ECHO LV Diastolic Diameter PLAX 4.1 cm 4.2 - 5.9 / 3.9 - 5.3 cm LV Systolic Diameter PLAX 2.8 cm IVS Diastolic Thickness 1.1 cm 0.6 - 1.0 / 0.6 - 0.9 cm LVPW Diastolic Thickness 0.9 cm 0.6 - 1.0 / 0.6 - 0.9 cm LV Relative Wall Thickness 0.5 RV Internal Dim ED PLAX 2.6 cm LVOT Diameter 1.7 cm Aortic Root Diameter 2.7 cm LA Systolic Diameter LX 3.5 cm 3.0 - 4.0 / 2.7 - 3.8 cm DOPPLER Mitral E Point Velocity 77.0 cm/s Mitral A Point Velocity 71.3 cm/s Mitral E to A Ratio 1.1 MV Deceleration Time 215.7 ms MV E' Velocity 9.1 cm/s Mitral E to MV E' Ratio 8.4 TR Peak Velocity 221.4 cm/s TR Peak Gradient 19.6 mmHg Right Atrial Pressure 5.0 mmHg Pulmonary Artery Systolic Pressu 24.6 mmHg Right Ventricular Systolic Press 24.6 mmHg FINDINGS Left Ventricle Left ventricular ejection fraction is estimated at 60%. Mildly increased septal wall thickness. Normal left ventricular systolic function with no obvious regional wall motion abnormalities. Left ventricular cavity size normal. Left ventricular wall thickness normal. Right Ventricle Normal right ventricular size and function. Right ventricular systolic pressure within normal limits. Right Atrium Normal right atrial size. Left Atrium Normal left atrial size. Mitral Valve Structurally normal mitral valve. No mitral stenosis. Trace mitral regurgitation. Aortic Valve Trileaflet aortic valve. No aortic stenosis. No aortic regurgitation. Thickened aortic valve without stenosis. Tricuspid Valve Structurally normal tricuspid valve. No tricuspid stenosis. Mild tricuspid regurgitation. Pulmonic Valve Structurally normal pulmonic valve. Trace pulmonic regurgitation. No pulmonic stenosis. Pericardium No pericardial effusion. Aorta Normal size aortic root and proximal ascending aorta. CONCLUSIONS Normal LV size and systolic function mild mitral and tricuspid regurgitation no pulmonary hypertension no pericardial effusion Previewed by: Dr. Stewart Perry MD (Electronically Signed) Final Date: 20 Mar 2025 17:04
[2025-03-21 08:09] LABS: Basophils # (A) 0.03 X 10*3/uL (0.00-0.10); Basophils % (A) 0.6 %; Eosinophils # (A) 0.23 X 10*3/uL (0.04-0.35); Eosinophils % (A) 4.7 %; HCT 35.5 % (37.2-46.3); HGB 11.2 g/dL (12.0-15.0); Lymphocytes # (A) 1.12 X 10*3/uL (0.90-5.00); Lymphocytes % (A) 22.9 %; MCH 27.4 pg (27.0-32.0); MCHC 31.5 g/dL (32.0-37.0); MCV 86.8 FL (80.0-97.0); Monocytes # (A) 0.49 X 10*3/uL (0.20-1.00); NRBC Per 100 WBC 0 X 10*3/uL (0.00-0.01); Neutrophils # (A) 2.98 X 10*3/uL (1.80-7.70); Platelet Count 187 X 10*3/uL (140-440); RBC 4.09 X 10*6/uL (4.10-5.20); RDW 13.5 % (11.5-14.5); WBC 4.89 X 10*3/uL (4.50-10.00)
[2025-03-21 08:37] LABS: BUN/Creat Ratio 19.78 Ratio (12.00-20.00); Blood Urea Nitrogen 17.8 mg/dL (9.0-27.0); Calcium 9.2 mg/dL (8.7-10.3); Carbon Dioxide 24.2 mmol/L (21.6-31.8); Chloride 105 mmol/L (96-109); Glucose 108 mg/dL (70-110); Magnesium 2.1 mg/dL (1.5-2.4); Potassium 3.9 mmol/L (3.5-5.5); Sodium 141 mmol/L (135-145)
--- NOTE | 2025-03-21 09:34 | P.PN ---
Subjective Progress Note Date: 03/20/25 55-year-old female with a past medical history of right breast cancer status postsurgery, COPD, GERD, osteoarthritis, obstructive sleep apnea and hypothyroidism, chronic pain, spinal stimulator placement and depression. Patient presents to ER with complaints of left lower extremity swelling and pain and bruising started 2 days prior to admission. Patient has pain with walking and noticed that her foot appears dark in color. Otherwise denied any chest pain or shortness of breath. No prior history of DVT or PE. Patient received chemotherapy about 2 months ago. Left lower extremity duplex scan showedDVT in the left lower extremity EKG sinus rhythm CT angiogram of the chest showed no PE. Right mastectomy. Skin thickening of the right breast correlate for cellulitis. Laboratory data showed WBC 8.4 hemoglobin 11.8 and platelets 151 Sodium 137 potassium 3.1 chloride 102 bicarb is 25 BUN 20 and creatinine 0.79 and blood sugar 89 and proBNP 37 and troponin less than 0.012 Urinalysis is negative for infection. 03/18/2025 Patient is seen and evaluated in room at bedside; resting in bed; reports continued pain, swelling and stiffness left lower extremity Vital signs are reviewed and are stable Lab review shows WBC of 4.2, hemoglobin of 10.7 and platelet count of 167, sodium 143, potassium 3.9, BUN/creatinine of 18/0.86 -Patient remains on IV heparin for extensive left lower extremity DVT extending from popliteal vein to CFV - Cardiology is consulted; patient follows up with Dr. Read as outpatient for PVD - Will consult cardiology for evaluation for possible thrombectomy 03/19/2025 Patient seen resting in bed; reports worsening pain and tightness in the left lower extremity; remains on IV heparin infusion Vital signs are reviewed and stable temperature 98.1, pulse 86, respirations 16 and blood pressure of 95/54 Labs are reviewed WBC 5.45, hemoglobin of 10.9 and platelet count 170, sodium 143, potassium 3.8, BUN/creatinine 15.1/0.9 -Patient remains on IV heparin for extensive left lower extremity DVT - Has been evaluated by cardiology for possible vein intervention with possible thrombectomy tomorrow morning - Plan to transition to oral antibiotics once cleared by cardiology 03/20/2025 Patient is seen in follow-up today and is currently n.p.o. with cardio following with plans on possible thrombectomy and is maintained on heparin. Will await official report. Patient reports continued left lower extremity pain and we akness and will discuss with cardiology once cleared for physical therapy evaluation. Plan is to return home on discharge and will also discuss anticoagulation for discharge. Patient denies chest pain or shortness of breath. Patient is afebrile with no reports of nausea or vomiting. Review of systems: Constitutional: No reports of fatigue, fever, or chills Cardiovascular: No reports of chest pain or palpitations Respiratory: No reports of shortness of breath or cough GI: No reports of nausea, vomiting, or diarrhea : No reports of dysuria or retention Neurovascular: reports of generalized weakness and left lower extremity pain All medications have been reviewed Physical exam: Patient is lying in the bed comfortably, no acute distress, awake alert and oriented.. Well-developed, appears older than stated age, morbidly obese HEENT: Normocephalic. Neck is supple. Pupils reactive. Nostrils clear. Oral cavity is moist. Neck reveals no JVD, carotid bruits, or thyromegaly. CHEST EXAMINATION: Trachea is central. Symmetrical expansion. Lung narayan clear to auscultation and percussion. CARDIAC: Normal S1, S2 with no gallops. No murmurs ABDOMEN: Soft. Bowel sounds normal. No organomegaly. No abdominal bruits. Extremities: Left lower extremity redness and swelling and bruising like discoloration of the feet and tenderness. No clubbing or cyanosis Neurologically awake, alert, oriented x3 with well-coordinated movements. No focal deficits noted Skin: No rash or skin lesions. Psychiatric: Cooperative. Non-suicidal Musculoskeletal: No joint swelling or deformity. Normal range of motion. Assessment: Acute DVT of the left lower extremity, currently maintained on heparin scheduled to undergo thrombectomy with cardiology today 03/20/2025 Swelling and pain and bruising secondary to above History of right breast cancer status post mastectomy. Chemotherapy. Hypokalemia replaced. COPD, not in exacerbation GERD Osteoarthritis Obstructive sleep apnea on CPAP at home Hypothyroidism Chronic pain History of spinal stimulator placement Depression Morbid obesity with BMI 40.0 DVT prophylax patient is already on heparin drip GI prophylaxis Full code Plan: Patient will be continued on heparin drip and will be changed to oral anticoagulation after discussing with cardiology as patient is scheduled to undergo possible thrombectomy of the left lower extremity. Continue pain management and home medications. GI prophylax with PPI and follow-up closely. Will follow-up on repeat labs in the a.m., replace electrolytes per protocol PT/OT therapy to evaluate once cleared by cardiology Will discuss with cardiology regarding discharge planning and anticoagulation on discharge Due to multiple complex medical issues, overall prognosis is guarded The impression and plan of care has been dictated by Vita Ellis, Nurse Practitioner as directed. Dr. Abhijit MD I have performed a history and examination and MDM of this patient, discussed the same with the dictator, and agree with the dictator's assessment and plan as written ,documented as a scribe. Based on total visit time, I have performed more than 50% of the visit. Objective - Vital Signs Vital signs: Vital Signs Temp 98.2 F 03/20/25 07:18 Pulse 78 03/20/25 07:18 Resp 16 03/20/25 07:18 BP 114/64 03/20/25 07:18 Pulse Ox 96 03/20/25 07:18 FiO2 Intake & Output 03/19/25 03/20/25 03/20/25 18:59 06:59 18:59 Intake Total 1979 238.663 Balance 1979 238.663 Intake: Intake, IV Titration 238.663 Amount Heparin Sod,Pork in 0.45% 238.663 NaCl 25,000 unit In 0.45 % NaCl 1 250ml.bag @ 18 UNITS/KG/HR 16.737 mls/hr IV .[id number] [facility] Rx#: [id number] Oral 1979 Other: # Voids 5 3 - Labs CBC & Chem 7: 03/21/25 05:39 03/21/25 05:39 Labs: Abnormal Lab Results - Last 24 Hours (Table) 03/18/25 03/19/25 03/20/25 Range/Units 06:50 05:24 06:01 RBC 3.96 L (4.10-5.20) X 10*6/uL Hgb 10.9 L (12.0-15.0) g/dL Hct 34.5 L (37.2-46.3) % MCHC 31.6 L (32.0-37.0) g/dL Immature Gran # 0.05 H (0.00-0.04) X 10*3/uL APTT 54.5 H (22.0-30.0) sec Triglycerides 219.00 H (0.00-149.00) mg/dL VLDL Cholesterol, Calc 43.80 H (5.00-40.00) mg/dL HDL Cholesterol 28.60 L (40.00-60.00) mg/dL
--- NOTE | 2025-03-21 10:44 | P.PN ---
Subjective HISTORY OF PRESENTING ILLNESS: 55-year-old female known to Dr. Read prior history of breast cancer status post right breast removal, chemotherapy. Last chemotherapy was in 2023 and since then she has been in remission. She also has history of GERD, osteoarthritis, obstructive sleep apnea, spinal stimulator, depression. She reports that previo usly she has had venous stenting bilateral common Elik veins done by Dr. Read. She denies any prior history of DVT PE or any family history of DVT. She does report family history of CHF in mother. She presented to the hospital because of increased worsening swelling in the left lower extremity over the last 5 to 6 days which has gradually got worse. She denies any recent injuries, surgeries or any prolonged immobilization or any recent long travel. 03/19/2025 Denies any chest pain chest pressure shortness of breath BP 95/54, heart rate 86 bpm Reports left leg heaviness with some burning with some erythema as compared to yesterday. 03/20/2025 Patient seen and examined resting comfortably in bed in no acute distress. Continues to complain of left lower extremity discomfort. Blood pressure 114/64 heart rate 78 afebrile maintaining oxygen saturation on room air. 03/21/2025 Patient seen and examined resting comfortably laying flat in bed sleeping. She has no complaints today. She is scheduled today to undergo peripheral angiogram with Dr. Read. IV heparin continues to be infused. Blood pressure 125/76 heart rate 78 afebrile maintaining oxygen saturation on room air. PHYSICAL EXAMINATION: Neck: Brisk carotid upstroke, no jugular venous distention. Lungs: Clear to auscultation. Heart: Regular rate and rhythm, S1-S2, , no murmur or rub. Abdomen: Soft nontender, positive bowel sounds. Extremities: 2+ swelling in left lower extremity with subcutaneous edema and tightness in the left lower leg Neuro: Alert, oriented, no focal deficits. Detailed neuro exam was not perform ed. 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 Read, time to be determined. Patient will remain NPO. IV heparin infusing. Further recommendations to follow based upon clinical course. Nurse Practitioner note has been reviewed, I agree with a documented findings and plan of care. Patient was seen and examined. Objective - Vital Signs Vital signs: Vital Signs Temp 98.5 F 03/21/25 07:26 Pulse 78 03/21/25 07:26 Resp 18 03/21/25 07:26 BP 125/76 03/21/25 07:26 Pulse Ox 92 L 03/21/25 07:26 FiO2 Intake & Output 03/20/25 03/21/25 03/21/25 18:59 06:59 18:59 Intake Total 782.135 194.185 Balance 782.135 194.185 Intake: Intake, IV Titration 242.135 194.185 Amount Heparin Sod,Pork in 0.45% 242.135 194.185 NaCl 25,000 unit In 0.45 % NaCl 1 250ml.bag @ 18 UNITS/KG/HR 16.737 mls/hr IV .[id number] [facility] Rx#: [id number] Oral 540 Other: Voiding Method Toilet # Voids 4 1 - Labs CBC & Chem 7: 03/21/25 05:39 03/21/25 05:39 Labs: Abnormal Lab Results - Last 24 Hours (Table) 03/21/25 03/21/25 Range/Units 05:39 05:39 RBC 4.09 L (4.10-5.20) X 10*6/uL Hgb 11.2 L (12.0-15.0) g/dL Hct 35.5 L (37.2-46.3) % MCHC 31.5 L (32.0-37.0) g/dL APTT 53.8 H (22.0-30.0) sec
[2025-03-21] MEDS: SODIUM CHLORIDE 0.9% 1,000 ML IV ONE (15:55)
[2025-03-21] MEDS: ONDANSETRON 4 MG/2 ML VIAL IVP ONE (15:58)
[2025-03-21] MEDS: MIDAZOLAM 2 MG/2 ML VIAL IVP ONE (15:58)
[2025-03-21] MEDS: LIDOCAINE 1% INJ 10MG/ML (20 ML MDV) SQ ONE (16:00)
[2025-03-21] MEDS: fentaNYL (PF) 50 MCG/ML 2 ML AMP IVP ONE (16:14)
[2025-03-21] MEDS: HEPARIN SODIUM 1,000 UN/ML (10ML VL) IV ONE (16:16)
[2025-03-21] MEDS: IOPAMIDOL-370 100ML BTL INJ ONE (16:41)
[2025-03-21] MEDS ORDERED: NALOXONE 0.4 MG/ML 1 ML VIAL IVP PRN (16:46)
--- NOTE | 2025-03-21 16:53 | P.PCN ---
Date of Procedure: 03/21/25 Operative Findings: Aspiration thrombectomy from the left femoral and iliac vein Performing physician Maulik Antoine MD Procedure performed 1. Successful mechanical aspiration thrombectomy using the penumbra device from the left lower extremity with extraction of large fresh thrombus and restoring the flow in occluded left femoral vein and left iliac vein 2. Left popliteal and femoral and iliac venogram and IVC angiogram 3. Ultrasound-guided access of the left popliteal artery Indication Extensive left lower extremity DVT in this 55-year-old female patient who is known to have stenting of the left and right common iliac vein in the setting of [place] syndrome in 2020. The patient continues to have severe pain and severe swelling of the left lower extremity. Approach Left popliteal vein Complication None Level of sedation Moderate with sedation length of 48 minutes Procedure description After obtaining informed consent the patient was brought to the cardiac Metallurgist Helper. The patient was put in a prone position. Subsequently the left popliteal vein was accessed using ultrasound guidance, the micropuncture wire passed easily then I placed initially an 8 Guyanese 11 cm sheath at the left popliteal vein. Subsequently anticoagulation was initiated using heparin with continuous ACT monitoring. I did left popliteal and left femoral and left iliac angiogram and also an IVC angiogram and that showed a clot located in the left femoral and left iliac. The angiogram was performed using an 035 catheter. Subsequently I did exchange my an 8 Guyanese sheath into a 14 Guyanese sheath using a 035 glide advantage wire. Under fluoroscopy guidance I was able to do mechanical aspiration thrombectomy using the penumbra device with extraction of large thrombus burden. Completion angiogram was performed and showed excellent angiographic results. Subsequently we achieved hemostasis using the the Vascade device. The procedure was completed with no complication Postprocedure management Start the patient on oral anticoagulation Monitor the left popliteal vein site Follow-up with the patient
--- NOTE | 2025-03-21 17:06 | IR ---
EXAMINATION TYPE: IR correctional officer captain venous Intraoperative/procedural fluoroscopic services were provided. CLINICAL INDICATION:Female, 55 years old with history of left leg pain. 9.1min fluoro, 29.4Gycm2; , P HH FINDINGS: Multiple fluoroscopic images were obtained. Total fluoroscopy time is 9.1 min. DAP: 29.4 Gycm2 Please see the operative/procedural note for further details. [facility], , 03/21/2025 5:04 PM
[2025-03-21] MEDS: APIXABAN 5 MG TAB PO SCH (20:46)
[2025-03-21] MEDS: SODIUM CHLORIDE 0.9% 1,000 ML in EMPTY BAG 1 BAG IV SCH (22:04)
--- NOTE | 2025-03-22 05:21 | P.PN ---
Subjective Progress Note Date: 03/21/25 55-year-old female with a past medical history of right breast cancer status postsurgery, COPD, GERD, osteoarthritis, obstructive sleep apnea and hypothyroidism, chronic pain, spinal stimulator placement and depression. Patient presents to ER with complaints of left lower extremity swelling and pain and bruising started 2 days prior to admission. Patient has pain with walking and noticed that her foot appears dark in color. Otherwise denied any chest pain or shortness of breath. No prior history of DVT or PE. Patient received chemotherapy about 2 months ago. Left lower extremity duplex scan showedDVT in the left lower extremity EKG sinus rhythm CT angiogram of the chest showed no PE. Right mastectomy. Skin thickening of the right breast correlate for cellulitis. Laboratory data showed WBC 8.4 hemoglobin 11.8 and platelets 151 Sodium 137 potassium 3.1 chloride 102 bicarb is 25 BUN 20 and creatinine 0.79 and blood sugar 89 and proBNP 37 and troponin less than 0.012 Urinalysis is negative for infection. 03/18/2025 Patient is seen and evaluated in room at bedside; resting in bed; reports continued pain, swelling and stiffness left lower extremity Vital signs are reviewed and are stable Lab review shows WBC of 4.2, hemoglobin of 10.7 and platelet count of 167, sodium 143, potassium 3.9, BUN/creatinine of 18/0.86 -Patient remains on IV heparin for extensive left lower extremity DVT extending from popliteal vein to CFV - Cardiology is consulted; patient follows up with Dr. Read as outpatient for PVD - Will consult cardiology for evaluation for possible thrombectomy 03/19/2025 Patient seen resting in bed; reports worsening pain and tightness in the left lower extremity; remains on IV heparin infusion Vital signs are reviewed and stable temperature 98.1, pulse 86, respirations 16 and blood pressure of 95/54 Labs are reviewed WBC 5.45, hemoglobin of 10.9 and platelet count 170, sodium 143, potassium 3.8, BUN/creatinine 15.1/0.9 -Patient remains on IV heparin for extensive left lower extremity DVT - Has been evaluated by cardiology for possible vein intervention with possible thrombectomy tomorrow morning - Plan to transition to oral antibiotics once cleared by cardiology 03/20/2025 Patient is seen in follow-up today and is currently n.p.o. with cardio following with plans on possible thrombectomy and is maintained on heparin. Will await official report. Patient reports continued left lower extremity pain and we akness and will discuss with cardiology once cleared for physical therapy evaluation. Plan is to return home on discharge and will also discuss anticoagulation for discharge. Patient denies chest pain or shortness of breath. Patient is afebrile with no reports of nausea or vomiting. 03/21/2025 Patient is seen and evaluated in follow-up with cardiology following was scheduled for angiogram yesterday although was changed and plans for today with Dr. Antoine and will await report. Patient is currently n.p.o. and afebrile with no reports of chest pain or shortness of breath. Patient denies nausea vomiting and reports to being hungry. Patient is continued on IV heparin and again will discuss with cardiology regarding discharge planning about anticoagulation. Review of systems: Constitutional: No reports of fatigue, fever, or chills Cardiovascular: No reports of chest pain or palpitations Respiratory: No reports of shortness of breath or cough GI: No reports of nausea, vomiting, or diarrhea : No reports of dysuria or retention Neurovascular: reports of generalized weakness and left lower extremity pain All medications have been reviewed Physical exam: Patient is lying in the bed comfortably, no acute distress, awake alert and oriented.. Well-developed, appears older than stated age, morbidly obese HEENT: Normocephalic. Neck is supple. Pupils reactive. Nostrils clear. Oral cavity is moist. Neck reveals no JVD, carotid bruits, or thyromegaly. CHEST EXAMINATION: Trachea is central. Symmetrical expansion. Lung narayan clear to auscultation and percussion. CARDIAC: Normal S1, S2 with no gallops. No murmurs ABDOMEN: Soft. Bowel sounds normal. No organomegaly. No abdominal bruits. Extremities: Left lower extremity redness and swelling and bruising like discoloration of the feet and tenderness. No clubbing or cyanosis Neurologically awake, alert, oriented x3 with well-coordinated movements. No focal deficits noted Skin: No rash or skin lesions. Psychiatric: Cooperative. Non-suicidal Musculoskeletal: No joint swelling or deformity. Normal range of motion. Assessment: Acute DVT of the left lower extremity, currently maintained on heparin scheduled to undergo thrombectomy with cardiology 03/21/2025 Swelling and pain and bruising secondary to above History of right breast cancer status post mastectomy. Chemotherapy. Hypokalemia replaced. Improved at 3.9 and COPD, not in exacerbation GERD Osteoarthritis Obstructive sleep apnea on CPAP at home Hypothyroidism Chronic pain History of spinal stimulator placement Depression Morbid obesity with BMI 40.0 DVT prophylax patient is already on heparin drip GI prophylaxis Full code Plan: Patient will be continued on heparin drip and will be changed to oral anticoagulation after discussing with cardiology as patient is scheduled to undergo possible thrombectomy of the left lower extremity with Dr. Antoine today. Continue pain management and home medications. GI prophylax with PPI and follow-up closely. Will follow-up on repeat labs in the a.m., replace electrolytes per protocol PT/OT therapy to evaluate once cleared by cardiology Will discuss with cardiology regarding discharge planning and anticoagulation on discharge Due to multiple complex medical issues, overall prognosis is guarded The impression and plan of care has been dictated by Vita Ellis, Nurse Practitioner as directed. Dr. Abhijit MD I have performed a history and examination and MDM of this patient, discussed the same with the dictator, and agree with the dictator's assessment and plan as written ,documented as a scribe. Based on total visit time, I have performed more than 50% of the visit. Objective - Vital Signs Vital signs: Vital Signs Temp 98.5 F 03/21/25 07:26 Pulse 78 03/21/25 07:26 Resp 18 03/21/25 07:26 BP 125/76 03/21/25 07:26 Pulse Ox 92 L 03/21/25 07:26 FiO2 Intake & Output 03/20/25 03/21/25 03/21/25 18:59 06:59 18:59 Intake Total 782.135 194.185 Balance 782.135 194.185 Intake: Intake, IV Titration 242.135 194.185 Amount Heparin Sod,Pork in 0.45% 242.135 194.185 NaCl 25,000 unit In 0.45 % NaCl 1 250ml.bag @ 18 UNITS/KG/HR 16.737 mls/hr IV .[id number] [facility] Rx#: [id number] Oral 540 Other: Voiding Method Toilet # Voids 4 1 - Labs CBC & Chem 7: 03/21/25 05:39 03/21/25 05:39 Labs: Abnormal Lab Results - Last 24 Hours (Table) 03/21/25 03/21/25 Range/Units 05:39 05:39 RBC 4.09 L (4.10-5.20) X 10*6/uL Hgb 11.2 L (12.0-15.0) g/dL Hct 35.5 L (37.2-46.3) % MCHC 31.5 L (32.0-37.0) g/dL APTT 53.8 H (22.0-30.0) sec
[2025-03-22 07:05] LABS: Basophils # (A) 0.02 10*3/uL (0.00-0.10); Basophils % (A) 0.5 %; Eosinophils # (A) 0.16 10*3/uL (0.04-0.35); Eosinophils % (A) 3.8 %; HCT 32.6 % (37.2-46.3); HGB 10.5 g/dL (12.0-15.0); Lymphocytes # (A) 0.83 10*3/uL (0.90-5.00); Lymphocytes % (A) 19.8 %; MCH 28.5 pg (27.0-32.0); MCHC 32.2 g/dL (32.0-37.0); MCV 88.3 fL (80.0-97.0); Mean Platelet Volume 9.6 fL (9.5-12.2); Monocytes # (A) 0.46 10*3/uL (0.20-1.00); Neutrophils % (A) 64.4 %; Platelet Count 166 10*3/uL (140-440); RBC 3.69 10*6/uL (4.10-5.20); RDW 13.5 % (11.5-14.5); WBC 4.19 10*3/uL (4.50-10.00)
[2025-03-22 07:16] LABS: ALT 41 U/L (4-34); AST 33 U/L (14-36); African American GFR (CKD) 83 (>60 ml/min/1.73 sqM); Albumin 3.4 g/dL (3.5-5.0); Alkaline Phosphatase 90 U/L (38-126); Anion Gap 5 mmol/L; Blood Urea Nitrogen 21 mg/dL (7-17); Carbon Dioxide 25 mmol/L (22-30); Chloride 107 mmol/L (98-107); Glucose 98 mg/dL (74-99); Magnesium 2.1 mg/dL (1.6-2.3); Non-African American GFR(CKD) 72 (>60 ml/min/1.73 sqM); Potassium 4.6 mmol/L (3.5-5.1); Sodium 137 mmol/L (137-145); Total Bilirubin 0.8 mg/dL (0.2-1.3); Total Protein 5.9 g/dL (6.3-8.2)
[2025-03-22 08:18] VITALS: RESP 17
[2025-03-22] MEDS: FUROSEMIDE 20 MG TAB PO SCH (11:37)
[2025-03-22 11:55] VITALS: BP 97/67; PULSE 76; TEMP 98
--- NOTE | 2025-03-22 12:02 | P.PN ---
Subjective HISTORY OF PRESENT ILLNESS: 55-year-old female known to Dr. Read prior history of breast cancer status post right breast removal, chemotherapy. Last chemotherapy was in 2023 and since then she has been in remission. She also has history of GERD, osteoarthritis, obstructive sleep apnea, spinal stimulator, depression. She reports that previously she has had venous stenting bilateral common Elik veins done by Dr. Read. She denies any prior history of DVT PE or any family history of DVT. She does report family history of CHF in mother. She presented to the hospital because of increased worsening swelling in the left lower extremity over the last 5 to 6 days which has gradually got worse. She denies any recent injuries, surgeries or any prolonged immobilization or any recent long travel. 03/19/2025 Denies any chest pain chest pressure shortness of breath BP 95/54, heart rate 86 bpm Reports left leg heaviness with some burning with some erythema as compared to yesterday. 03/20/2025 Patient seen and examined resting comfortably in bed in no acute distress. Continues to complain of left lower extremity discomfort. Blood pressure 114/64 heart rate 78 afebrile maintaining oxygen saturation on room air. 03/21/2025 Patient seen and examined resting comfortably laying flat in bed sleeping. She has no complaints today. She is scheduled today to undergo peripheral angiogram with Dr. Read. IV heparin continues to be infused. Blood pressure 125/76 heart rate 78 afebrile maintaining oxygen saturation on room air. 03/22/2025 Patient examined this morning the bedside. Patient underwent lower extremity angiogram yesterday with Dr. Antoine with aspiration thrombectomy from left femoral and iliac vein. Echocardiogram completed revealing ejection fraction 60%, trace MR, mild TR. patient without complaints of chest pain or shortness of breath. She has been up ambulating to the bathroom. PHYSICAL EXAM: VITAL SIGNS: Reviewed. GENERAL: Well-developed in no acute distress. NECK: Supple. No JVD or thyromegaly LUNGS: Respirations even and unlabored. Lungs essentially clear to auscultation bilaterally. HEART: Regular rate and rhythm. S1 and S2 heard. EXTREMITIES: Normal range of motion. No clubbing or cyanosis. Peripheral pulses intact. 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 Antoine Nurse practitioner note has been reviewed by physician. Signing provider agrees with the documented findings, assessment, and plan of care documented by PRODUCTION HAND as a scribe. Objective - Vital Signs Vital signs: Vital Signs Temp 97.9 F 03/22/25 08:15 Pulse 79 03/22/25 08:15 Resp 17 03/22/25 08:15 BP 96/64 03/22/25 08:15 Pulse Ox 95 03/22/25 08:15 FiO2 Intake & Output 03/21/25 03/22/25 03/22/25 18:59 06:59 18:59 Intake Total 350.000 480 Balance 350.000 480 Weight 92.2 kg Intake: IV 100 Intake, IV Titration 250.000 Amount Heparin Sod,Pork in 0.45% 250.000 NaCl 25,000 unit In 0.45 % NaCl 1 250ml.bag @ 18 UNITS/KG/HR 16.737 mls/hr IV .[id number] [facility] Rx#: [id number] Oral 480 Other: Voiding Method Toilet # Voids 1 - Labs CBC & Chem 7: 03/22/25 06:36 03/22/25 05:46 Labs: Abnormal Lab Results - Last 24 Hours (Table) 03/22/25 03/22/25 Range/Units 05:46 06:36 WBC 4.19 L (4.50-10.00) 10*3/uL RBC 3.69 L (4.10-5.20) 10*6/uL Hgb 10.5 L (12.0-15.0) g/dL Hct 32.6 L (37.2-46.3) % Lymphocytes # 0.83 L (0.90-5.00) 10*3/uL BUN 21 H (7-17) mg/dL ALT 41 H (4-34) U/L Total Protein 5.9 L (6.3-8.2) g/dL Albumin 3.4 L (3.5-5.0) g/dL
--- NOTE | 2025-03-27 09:11 | P.DS ---
Providers Date of admission: 03/16/25 07:54 Expected date of discharge: 03/22/25 Attending physician: Felipe Suero Consults: 03/17/25 13:09 Consult Physician Routine Consulting Provider: Maulik Antoine Consult Reason/Comments: PVD/ leg swelling Do you want consulting provider notified?: Yes Primary care physician: [facility] Course: Final diagnosis Acute DVT of the left lower extremity, status post thrombectomy with cardiology 03/21/2025, started on Eliquis Swelling and pain and bruising secondary to above History of right breast cancer status post mastectomy. Chemotherapy. Hypokalemia replaced. Improved at 3.9 and COPD, not in exacerbation GERD Osteoarthritis Obstructive sleep apnea on CPAP at home Hypothyroidism Chronic pain History of spinal stimulator placement Depression Morbid obesity with BMI 40.0 DVT prophylax being transitioned to Eliquis GI prophylaxis Full code Discharge disposition Patient is being discharged in a stable condition with guarded prognosis to home. Patient will follow-up with Dr. Junaid Suero in the outpatient setting upon discharge. Patient is to continue with Eliquis 10 mg twice daily for 1 week and transition to 5 mg twice daily thereafter with close outpatient follow- up with cardiology Dr. Antoine as scheduled. Total time taken is greater than 35 minutes. Hospital course This is a 55-year-old female who was recently admitted with leg swelling on the left noted to have DVT that was extensive being closely monitored with cardiology following. Patient has history of previous blood clots with intervention with Dr. Antoine and is status post thrombectomy of the left lower extremity and patient was maintained on IV heparin. Patient has transition to Eliquis and is continued on 10 mg twice daily and will transition to 5 mg twice daily after 1 week. Recommend close outpatient follow-up with primary care provider as well as cardiology. Patient has been cleared by consultations. Please refer to consultation notes for further HPI. Currently no reports of chest pain, shortness of breath, or palpitations. Patient is afebrile. No reports of nausea or vomiting and patient is tolerating diet. Patient will be discharged home today. Physical exam: Gen: This is a 55-year-old female who is awake, alert and oriented x 3, well- developed, elderly appearing, obese HEENT: Head is atraumatic, normocephalic. Pupils equal, round. Sclerae is anicteric. NECK: Supple. No JVD. No lymphadenopathy. No thyromegaly. LUNGS: Clear to auscultation. No wheezes or rhonchi. No intercostal retractions. HEART: Regular rate and rhythm. No murmur. ABDOMEN: Soft. Bowel sounds are present. No masses. No tenderness. EXTREMITIES: No pedal edema. No calf tenderness. Left lower extremity with some swelling although slightly improved NEUROLOGICAL: Patient is awake, alert and oriented x3. Cranial nerves 2 through 12 are grossly intact. Please refer to medication reconciliation sheet for a list of medications. The impression and plan of care has been dictated by Vita Ellis, Nurse Practitioner as directed. Dr. Abhijit MD I have performed a history and examination and MDM of this patient, discussed the same with the dictator, and agree with the dictator's assessment and plan as written ,documented as a scribe. Based on total visit time, I have performed more than 50% of the visit. Patient Condition at Discharge: Good Plan - Discharge Summary Discharge Rx Participant: Yes New Discharge Prescriptions: New Apixaban [Eliquis] 10 mg PO BID #70 tab Furosemide [Lasix] 20 mg PO DAILY #30 tab Continue Albuterol Inhaler [Ventolin Hfa Inhaler] 2 puff INHALATION RT-Q4H PRN PRN Reason: Shortness Of Breath tiZANidine [Zanaflex] 4 mg PO HS Loratadine [Claritin] 10 mg PO HS Montelukast [Singulair] 10 mg PO HS Magnesium Oxide [Magnesium] 500 mg PO HS Cholecalciferol (Vitamin D3) [Vitamin D3 (3000 Iu)] 75 mcg PO HS Ibuprofen [Motrin] 800 mg PO BID PRN PRN Reason: Pain buPROPion SR [Wellbutrin SR] 150 mg PO DAILY Calcium Carbonate [Calcium] 600 mg PO HS L.acidoph,Paracasei, B.lactis [Probiotic] 1 cap PO HS Omeprazole [PriLOSEC] 40 mg PO HS Anastrozole [Arimidex] 1 mg PO DAILY Pregabalin [Lyrica] 150 mg PO TID DULoxetine HCL [Cymbalta] 60 mg PO DAILY Discharge Medication List Albuterol Inhaler [Ventolin Hfa Inhaler] 2 puff INHALATION RT-Q4H PRN 07/17/17 [History] tiZANidine [Zanaflex] 4 mg PO HS 11/14/19 [History] Loratadine [Claritin] 10 mg PO HS 07/09/23 [History] Montelukast [Singulair] 10 mg PO HS 07/09/23 [History] L.acidoph,Paracasei, B.lactis [Probiotic] 1 cap PO HS 09/18/23 [History] Anastrozole [Arimidex] 1 mg PO DAILY 03/16/25 [History] Calcium Carbonate [Calcium] 600 mg PO HS 03/16/25 [History] Cholecalciferol (Vitamin D3) [Vitamin D3 (3000 Iu)] 75 mcg PO HS 03/16/25 [His tory] DULoxetine HCL [Cymbalta] 60 mg PO DAILY 03/16/25 [History] Ibuprofen [Motrin] 800 mg PO BID PRN 03/16/25 [History] Magnesium Oxide [Magnesium] 500 mg PO HS 03/16/25 [History] Omeprazole [PriLOSEC] 40 mg PO HS 03/16/25 [History] Pregabalin [Lyrica] 150 mg PO TID 03/16/25 [History] buPROPion SR [Wellbutrin SR] 150 mg PO DAILY 03/16/25 [History] Apixaban [Eliquis] 10 mg PO BID #70 tab 03/22/25 [Rx] Furosemide [Lasix] 20 mg PO DAILY #30 tab 03/22/25 [Rx] Follow up Appointment(s)/Referral(s): Maulik Antoine MD [STAFF PHYSICIAN] - 1 Week (OFFICE WILL CALL YOU WITH APPT TIME) Ellie Najera MD [Primary Care Provider] - 1-2 days (LEFT MESSAGE WITH FOOT ROENTGENOLOGIST) Patient Instructions/Handouts: *Surgery [facility] - After Heart Catheterization - Am bulatory Care Instructions, Deep Vein Thrombosis (DC) Activity/Diet/Wound Care/Special Instructions: Activity limited until follow-up Follow-up with primary care provider on discharge Continue with Lasix daily to 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 Antoine in the outpatient setting Continue on Eliquis 10 mg twice daily for 1 week and then transition to 5 mg twice daily thereafter Continue taking medications as prescribed Elevate lower extremity while at rest Discharge Disposition: HOME SELF-CARE
== END 2025-03-22 14:25 | disposition home or self-care (01) | DRG 271 ==
LOC: EC 17:44 → 5NMEDONC 03-16 01:29 → OBSVTOIN 03-16 07:54 → 3SCARD 03-21 18:50
PROVIDERS: ADMIT Hospitalist; ATTEND Hospitalist
PROC: X2CT3T7 Extirpation of Matter from Left Lower Extremity Artery using Computer-aided Mechanical Aspiration, Percutaneous Approach, New Technology Group 7 (ICD-10-PCS; principal; 2025-03-21 13:30)
DX: I82.412 Acute embolism and thrombosis of left femoral vein (principal); I87.1 Compression of vein; C50.911 Malignant neoplasm of unspecified site of right female breast; E66.01 Morbid (severe) obesity due to excess calories; I82.422 Acute embolism and thrombosis of left iliac vein; J44.9 Chronic obstructive pulmonary disease, unspecified; F32.A Depression, unspecified; E03.9 Hypothyroidism, unspecified; I73.9 Peripheral vascular disease, unspecified; Z68.41 Body mass index [BMI] 40.0-44.9, adult; E87.6 Hypokalemia; G43.909 Migraine, unspecified, not intractable, without status migrainosus; K21.9 Gastro-esophageal reflux disease without esophagitis; G89.29 Other chronic pain; G47.33 Obstructive sleep apnea (adult) (pediatric); M54.9 Dorsalgia, unspecified; Z79.811 Long term (current) use of aromatase inhibitors; Z79.899 Other long term (current) drug therapy; Z95.820 Peripheral vascular angioplasty status with implants and grafts; Z86.718 Personal history of other venous thrombosis and embolism; Z92.21 Personal history of antineoplastic chemotherapy; Z86.73 Personal history of transient ischemic attack (TIA), and cerebral infarction without residual deficits; Z96.82 Presence of neurostimulator
CPT/HCPCS: 36415; 37187; 71275; 75820; 75825; 76937; 80048; 80053; 80061; 81003; 83036; 83605; 83690; 83735; 83880; 84100; 84443; 84484; 85025; 85610; 85730; 86140; 93005; 93306; 96361; 96365; 96375; 99285

== ENCOUNTER → 2025-05-19 | Outpatient (CLI) | payer MEDICARE, OTHER ==
[2025-05-20 00:24] LABS: Alternaria alternata IgE <0.10 kU/L; Aspergillus fumagatus IgE <0.10 kU/L; Oak IgE <0.10 kU/L; Red Top (Bentgrass) IgE <0.10 kU/L
[2025-05-20 03:11] LABS: Cat Epith & Dander IgE <0.10 kU/L; Cladosporian herbarum IgE <0.10 kU/L; Dermato. farinae IgE <0.10 kU/L; Ragweed,Common IgE <0.10 kU/L
== END | disposition home or self-care (01) ==
LOC: LABWHC1 12:20
PROVIDERS: ATTEND Internal Medicine Critical Care Medicine
DX: J06.9 Acute upper respiratory infection, unspecified (principal)
CPT/HCPCS: 36415; 82785; 86003